=== PATIENT | female | born 1950 | race Caucasian/White ===

== ENCOUNTER 2019-05-12 17:35 | Inpatient (IN) | payer MEDICARE, SELFPAY ==
[2019-05-12 17:40] VITALS: BMI 33.3
[2019-05-12 17:53] VITALS: BP 172/91; PULSE 76; RESP 20; TEMP 37; O2SAT 98
--- NOTE | 2019-05-12 18:12 | XRR_ITS ---
PROCEDURE INFORMATION: Exam: XR Chest, 1 View Exam date and time: 05/12/2019 6:36 PM Age: 68 years old Clinical indication: Shortness of breath; Additional info: SOA TECHNIQUE: Imaging protocol: XR of the chest Views: 1 view. COMPARISON: CR Chest 1 [place] [id number] 03/28/2015 1:02 PM FINDINGS: The lungs are clear of infiltrate. There are no pleural effusions or pneumothorax. The heart size and pulmonary vascularity are normal. XR/XR chest 1V portable [id number] IMPRESSION: No active disease.
--- NOTE | 2019-05-12 18:27 | W.ED.SOB ---
HPI - SOB/Dyspnea General: Chief Complaint: Shortness of Breath/Dyspnea Stated Complaint: cp Time Seen by Provider: 05/12/19 18:05 History of Present Illness: HPI Narrative: States increaseing WHITNEY and icy fire intermittently in her chest that is quite unpleasant causing moderate discomfort. Staets it is intermittent and brief in duration. States she is unsure of relation but ever since she got her flu shot in February from the health department she has felt these twinges of discomfort. She has a clotting tendency and has had 11 veins stripped from her left leg and has a blanca filter in place and is on Eloquis. She denies chest pain currently or significant shortness of breath while resting. Advised we would like to ensure no occult clots and will evaluate for other potential causes of her now chronic problem. Patient agrees and will follow up with PCP if all wnl. MD elicited complaint: shortness of breath and chest pain Pertinent past history: PE Onset (ago): month(s) Context: occurred during exertion Timing: intermittent Severity: moderate Exacerbating factors: exertion and inspiration Relieving factors: rest Known history of: PE Associated symptoms: Reports chest pain; Deny abdominal pain, extremity pain, fever(s), hemoptysis, nausea, polydipsia, polyuria or vomiting Treatment prior to arrival: none Review of Systems Const: Denies: fever, chills, change in appetite or malaise Eyes: Denies: change in vision, blurry vision, eye discharge or eye redness ENMT: Denies: throat pain, uvular edema, painful swallowing, mouth pain, dental pain, nasal congestion or facial/sinus pain Card: Reports: chest pain Resp: Denies: productive cough, wheezing or coughing up blood GI: Denies: abdominal pain, nausea, vomiting, diarrhea, constipation or fecal incontinence : Denies: flank pain, difficulty urinating, painful urination, urinary frequency, urinary urgency or urinary hesitancy Musc: Denies: neck pain, back pain, extremity pain or extremity swelling Skin/Breast: Denies: rash, itching, redness, yellow skin or dry skin Neuro: Denies: headache, numbness in extremities, weakness in extremities, changes in sensation, lack of coordination or difficulty walking Psych: Denies: anxiety, depression, mood swings, panic attacks, sleeping less, suicidal ideation or homicidal ideation Endo: Denies: excessive urination, excessive thirst or tired all the time Garret/Lymph: Denies: easy bruising, petechiae or enlarged lymph nodes All/Imm: Denies: hives, throat swelling, facial swelling, acute wheezing or seasonal allergies PFSH ED PFSH: Statuses (acute, chronic, etc) shown below reflect problem list status as previously entered and may not be historically accurate Social History Smoking and tobacco status: never smoked Physical Exam Const: COMMON NORMALS: no apparent distress, oriented x3, no limitations, healthy appearing, alert and well nourished GENERAL APPEARANCE: cooperative, comfortable, well kempt and well developed ORIENTATION/CONSCIOUSNESS: Yes awake, Yes oriented to person, Yes oriented to place and Yes oriented to time HENMT: COMMON NORMALS: normocephalic, head/scalp atraumatic, hearing grossly normal bilaterally, external ears normal, EAC's normal, TM's normal bilaterally, external nose normal, nasal mucous membranes and turbinates normal, moist oral mucous membranes, oropharynx normal, dentition normal and gingiva normal HEAD & SCALP: normal to inspection, normocephalic and atraumatic FACE & SINUS: normal facial exam NOSE: external nose normal and nasal mucous membranes and turbinates normal EXTERNAL EAR: Yes external ears normal EXTERNAL AUDITORY CANAL: EAC's normal TYMPANIC MEMBRANE: TM's normal bilaterally MOUTH: oral and palatal mucosa normal, lip normal and tongue normal THROAT: no uvular edema Eye: COMMON NORMALS: PERRL, EOMs intact bilaterally, conjunctivae normal, no scleral icterus and normal visual saab by confrontation GENERAL EYE: normal appearance of both eyes and normal light reflex VISUAL ACUITY: Yes acuity normal ALIGNMENT: Yes alignment normal PERIORBITAL: periorbital findings normal EYELID: eyelids normal CONJUNCTIVA: Yes conjunctivae normal SCLERA: sclerae normal PUPIL: Yes PERRL and Yes accommodation reflex normal DIRECT OPHTHALMOSCOPY: Yes normal light reflex Neck/C-Spine: COMMON NORMALS: full ROM, no lymphadenopathy, supple, no meningeal signs and no JVD GENERAL: Yes normal visual inspection CAROTIDS: Yes normal carotid upstroke CERVICAL SPINE: Yes cervical ROM normal Lymph: LYMPHATIC: no lymphadenopathy noted Chest: COMMONS NORMALS: inspection of chest normal CHEST: Yes symmetrical chest wall rise Resp: COMMON NORMALS: normal respiratory effort, no retractions, no use of accessory muscles and clear to auscultation bilaterally EFFORT & INSPECTION: Yes able to speak in complete sentences and Yes symmetric chest movement AUSCULTATION: clear to auscultation bilaterally Cardio: COMMON NORMALS: no JVD, regular rate, regular rhythm, S1 normal heart sound, S2 normal heart sound, no murmurs and peripheral pulses 2+ throughout RATE: regular rate RHYTHM: regular rhythm HEART SOUNDS: S1 normal and S2 normal PERIPHERAL PULSES: pulses 2+ throughout GI: COMMON NORMALS: normal to inspection, nondistended, normoactive bowel sounds and non-tender : COMMON NORMALS: Yes no CVA tenderness BLADDER/KIDNEY EXAM: Yes no CVA tenderness Back/Pelvis: COMMON NORMALS: no CVA tenderness, thoracic and lumbar spine normal to inspection, no thoracic nor lumbar tenderness and thoraco-lumbar ROM normal Extremity: COMMON NORMALS: normal to inspection, full ROM, normal capillary refill, no calf tenderness and no pedal edema Neuro: COMMON NORMALS: oriented x3, CN's II-XII intact bilaterally, moves all extremities, no focal motor deficits, no sensory deficits noted and gait normal SENSORIUM/ORIENTATION: Yes alert, Yes oriented to person, Yes oriented to place and Yes oriented to time MENINGEAL SIGNS: Yes no meningeal signs SPEECH: speech normal GAIT: Yes normal gait MOTOR EXAM: strength 5/5 throughout, no pronator drift and no tremor noted Psych: COMMON NORMALS: mental status grossly normal, thought process normal, cooperative, affect normal, speech normal and activity/motor behavior normal APPEARANCE: Yes well kempt SPEECH: Yes normal speech THOUGHT PROCESS: normal thought process THOUGHT CONTENT: Yes normal thought content INSIGHT: insight good Skin: COMMON NORMALS: no rashes or lesions noted, no wounds, skin turgor normal and no jaundice GENERAL SKIN EXAM: no rashes or lesions noted and turgor normal Course ED course: patient doing well. Disucssed new onset DM and anemia. WILl need to admit to get her under control, pt agrees. Hospitalist agrees to admit Vital Signs: Vital signs: Vital Signs Temperature 98.6 F 05/12/19 17:53 Pulse Rate 76 05/12/19 17:53 Respiratory Rate 20 H 05/12/19 17:53 Blood Pressure 172/91 05/12/19 17:53 Pulse Oximetry 98 05/12/19 17:53 MDM - SOB/Dyspnea Differential Diagnosis: Shortness of Breath Differential Diagnosis: Likely congestive heart failure and pulmonary embolism Lab Data: Attestation: I reviewed the patient's lab results. Labs: Lab Results 05/12/19 05/12/19 05/12/19 Range/Units 18:31 18:31 18:31 WBC 10.1 H (4.0-10.0) 10^3/ uL RBC 2.94 L (4.1-5.3) 10^6/u L Hgb 6.9 L (11.5-15.3) g/dL Hct 24.4 L (37.0-47.0) % MCV 83.0 (81-99) fL MCH 23.5 L (28.0-34.0) pg MCHC 28.3 L (30.0-36.0) g/dL RDW 15.7 H (12.1-15.1) % Plt Count 349 (130-400) 10^3/c mm MPV 11.0 H (7.4-10.4) fL Neut % (Auto) 79.9 % Lymph % (Auto) 14.2 % [place] % (Auto) 3.1 % Eos % (Auto) 0.1 % Baso % (Auto) 0.4 % Neut # (Auto) 8.1 H (1.8-7.7) 10^3/u L Lymph # (Auto) 1.4 (0.8-4.8) 10^3/u L [place] # (Auto) 0.3 (0.2-0.9) 10^3/u L Eos # (Auto) 0.0 (0.0-0.8) 10^3/u L Baso # (Auto) 0.0 (0.0-0.1) 10^3/u L Nucleated RBC % (a uto) 0.2 % Nucleated RBCs # 0.0 /100WBC Sodium 125 L (136-145) mmol/L Potassium 4.1 (3.5-5.1) mmol/L Chloride 87 L (98-107) mmol/L Carbon Dioxide 18 L (22-29) mmol/L Anion Gap 24.1 H (5-19) BUN 37 H (8-23) mg/dL Creatinine 1.3 H (0.5-0.9) mg/dL GFR Calculation 40.7 L (90-130) mL/min Glucose 641 H* (74-106) mg/dL POC Glucose (70-110) mg/dL Estimat Average Gl ucose Hemoglobin A1c (4.0-6.0) % Calcium 10.6 H (8.8-10.2) mg/Dl Magnesium 1.7 (1.7-2.3) mg/dL Total Bilirubin 0.3 (0.15-1.2) mg/dL AST 12 (0-32) U/L ALT 13 (0-33) U/L Alkaline Phosphata se 97 (35-105) IU/L Troponin T Gen 5 n g/L 15 H (0-10) ng/mL NT-Pro-B Natriuret Pep 345 H (0-125) pg/mL Total Protein 7.3 (6.6-8.7) g/dL Albumin 4.0 (3.5-5.2) g/dL Globulin 3.3 (1.3-4.6) g/dL Serum Ketones (Negative) Blood Type 05/12/19 05/12/19 05/12/19 Range/Units 18:31 18:31 19:42 WBC (4.0-10.0) 10^3/ uL RBC (4.1-5.3) 10^6/u L Hgb (11.5-15.3) g/dL Hct (37.0-47.0) % MCV (81-99) fL MCH (28.0-34.0) pg MCHC (30.0-36.0) g/dL RDW (12.1-15.1) % Plt Count (130-400) 10^3/c mm MPV (7.4-10.4) fL Neut % (Auto) % Lymph % (Auto) % [place] % (Auto) % Eos % (Auto) % Baso % (Auto) % Neut # (Auto) (1.8-7.7) 10^3/u L Lymph # (Auto) (0.8-4.8) 10^3/u L [place] # (Auto) (0.2-0.9) 10^3/u L Eos # (Auto) (0.0-0.8) 10^3/u L Baso # (Auto) (0.0-0.1) 10^3/u L Nucleated RBC % (a uto) % Nucleated RBCs # /100WBC Sodium (136-145) mmol/L Potassium (3.5-5.1) mmol/L Chloride (98-107) mmol/L Carbon Dioxide (22-29) mmol/L Anion Gap (5-19) BUN (8-23) mg/dL Creatinine (0.5-0.9) mg/dL GFR Calculation (90-130) mL/min Glucose (74-106) mg/dL POC Glucose (70-110) mg/dL Estimat Average Gl ucose 301 Hemoglobin A1c 12.1 H (4.0-6.0) % Calcium (8.8-10.2) mg/Dl Magnesium (1.7-2.3) mg/dL Total Bilirubin (0.15-1.2) mg/dL AST (0-32) U/L ALT (0-33) U/L Alkaline Phosphata se (35-105) IU/L Troponin T Gen 5 n g/L (0-10) ng/mL NT-Pro-B Natriuret Pep (0-125) pg/mL Total Protein (6.6-8.7) g/dL Albumin (3.5-5.2) g/dL Globulin (1.3-4.6) g/dL Serum Ketones Negative (Negative) Blood Type O Positive 05/12/19 Range/Units 20:00 WBC (4.0-10.0) 10^3/ uL RBC (4.1-5.3) 10^6/u L Hgb (11.5-15.3) g/dL Hct (37.0-47.0) % MCV (81-99) fL MCH (28.0-34.0) pg MCHC (30.0-36.0) g/dL RDW (12.1-15.1) % Plt Count (130-400) 10^3/c mm MPV (7.4-10.4) fL Neut % (Auto) % Lymph % (Auto) % [place] % (Auto) % Eos % (Auto) % Baso % (Auto) % Neut # (Auto) (1.8-7.7) 10^3/u L Lymph # (Auto) (0.8-4.8) 10^3/u L [place] # (Auto) (0.2-0.9) 10^3/u L Eos # (Auto) (0.0-0.8) 10^3/u L Baso # (Auto) (0.0-0.1) 10^3/u L Nucleated RBC % (a uto) % Nucleated RBCs # /100WBC Sodium (136-145) mmol/L Potassium (3.5-5.1) mmol/L Chloride (98-107) mmol/L Carbon Dioxide (22-29) mmol/L Anion Gap (5-19) BUN (8-23) mg/dL Creatinine (0.5-0.9) mg/dL GFR Calculation (90-130) mL/min Glucose (74-106) mg/dL POC Glucose 595 (70-110) mg/dL Estimat Average Gl ucose Hemoglobin A1c (4.0-6.0) % Calcium (8.8-10.2) mg/Dl Magnesium (1.7-2.3) mg/dL Total Bilirubin (0.15-1.2) mg/dL AST (0-32) U/L ALT (0-33) U/L Alkaline Phosphata se (35-105) IU/L Troponin T Gen 5 n g/L (0-10) ng/mL NT-Pro-B Natriuret Pep (0-125) pg/mL Total Protein (6.6-8.7) g/dL Albumin (3.5-5.2) g/dL Globulin (1.3-4.6) g/dL Serum Ketones (Negative) Blood Type Discharge Plan Discharge Patient Disposition: Admitted As Inpatient Clinical Impression: Anemia Qualifiers: Anemia type: other cause Other causes of anemia: chronic disease, other Qualified Code(s): D63.8 - Anemia in other chronic diseases classified elsewhere Diabetes Qualifiers: Diabetes mellitus type: type 2 Diabetes mellitus halfway insulin use: without extermination inspector use Diabetes mellitus complication status: with hyperglycemia Qualified Code(s): E11.65 - Type 2 diabetes mellitus with hyperglycemia Condition: Stable Referrals: Kvng Hamilton MD [Family Provider] - Coding Level of Care Code ED Absorption And Adsorption Engineer for Chg Fwd Exam Problem Focused
[2019-05-12 18:44] LABS: Basophils % 0.4 %; Eosinophils % 0.1 %; Hematocrit 24.4 % (37.0-47.0); Hemoglobin 6.9 g/dL (11.5-15.3); Lymphocytes # 1.4 10^3/uL (0.8-4.8); Lymphocytes % 14.2 %; Mean Corpuscular HGB Conc 28.3 g/dL (30.0-36.0); Mean Corpuscular Hemoglobin 23.5 pg (28.0-34.0); Monocytes # 0.3 10^3/uL (0.2-0.9); Monocytes % 3.1 %; Neutrophils # 8.1 10^3/uL (1.8-7.7); Neutrophils % 79.9 %; Nucleated Red Blood Cells % 0.2 %; Platelet Count 349 10^3/cmm (130-400); Red Blood Count 2.94 10^6/uL (4.1-5.3); Red Cell Distribution Width 15.7 % (12.1-15.1); White Blood Count 10.1 10^3/uL (4.0-10.0)
[2019-05-12 19:10] LABS: Alanine Aminotransferase 13 U/L (0-33); Alkaline Phosphatase 97 IU/L (35-105); Anion Gap 24.1 (5-19); Aspartate Amino Transferase 12 U/L (0-32); Blood Urea Nitrogen 37 mg/dL (8-23); Calcium 10.6 mg/Dl (8.8-10.2); Carbon Dioxide 18 mmol/L (22-29); Chloride 87 mmol/L (98-107); Globulin 3.3 g/dL (1.3-4.6); Glomerular Filtration Rate 40.7 mL/min (90-130); Magnesium 1.7 mg/dL (1.7-2.3); NT Pro B Type Natriuretic Pept 345 pg/mL (0-125); Potassium 4.1 mmol/L (3.5-5.1); Sodium 125 mmol/L (136-145); Total Bilirubin 0.3 mg/dL (0.15-1.2); Total Protein 7.3 g/dL (6.6-8.7)
[2019-05-12 19:12] LABS: Glucose 641 mg/dL (74-106)
[2019-05-12 19:27] LABS: Troponin T (5th) Once 15 ng/mL (0-10)
[2019-05-12 19:36] LABS: Ketone (Acetest) Serum Negative (Negative)
[2019-05-12 20:02] LABS: Estmated Average Glucose 301; Hemoglobin A1C 12.1 % (4.0-6.0)
--- NOTE | 2019-05-12 20:02 | PC.NURSE ---
Patient's blood glucose is 595, informed nurse who was at bedside and informed doctor.
[2019-05-12 20:04] LABS: Glucose Point of Care 595 mg/dL (70-110)
[2019-05-12 20:59] LABS: Add Urine Microscopic? NO
[2019-05-12 21:10] LABS: Bilirubin Urine Neg (NEGATIVE); Blood Urine Neg (Negative); Glucose Urine UA 4+ (Normal); Ketones Urine 1+ (Negative); Leukocyte Esterase Urine Negative (Negative); Nitrate Urine Negative (Negative); Protein Urine Neg (Negative); Urine Appearance Clear (CLEAR); Urine Color Straw (Yellow); Urobilinogen Urine Norm (Negative); pH Urine 5 (5-7)
[2019-05-12 21:17] LABS: Influenza A by IFA Negative (Negative); Influenza B by IFA Negative (Negative)
[2019-05-12 22:00] VITALS: BP 156/84; PULSE 68; RESP 16; RESP 18; TEMP 36.8; O2SAT 96
--- NOTE | 2019-05-12 22:11 | PC.NURSE ---
Patient blood glucose is 554, informed nurse, ER doctor and hospitalist.
[2019-05-12 22:15] VITALS: BP 124/80; PULSE 65; RESP 15; TEMP 36.8
[2019-05-12 22:15] LABS: Glucose Point of Care 554 mg/dL (70-110)
--- NOTE | 2019-05-12 22:42 | PC.NURSE ---
UNABLE TO SCAN BLOOD PRODUCT, RADHAE LAUNDRY ROUTEMAN NOTIFIED FOR ASSISTANCE. BLOOD STARTED WITH 2 NURSE VERIFICATION, VITAL SIGNS ON PRBC FORM.
[2019-05-12 22:51] VITALS: RESP 18; O2SAT 98
[2019-05-12] MEDS: HYDROmorphone 1 mg/mL INJ 1 mL IVP (22:51)
--- NOTE | 2019-05-12 23:32 | PC.NURSE ---
Patient blood glucose is 452, informed nurse and ER doctor.
[2019-05-12 23:36] LABS: Glucose Point of Care 452 mg/dL (70-110)
[2019-05-13] VITALS (17 sets, daily range): BP systolic 109–139; BP diastolic 60–81; PULSE 56–76; RESP 16–23; TEMP 36–37.2; O2SAT 95–100; BMI 33.3
[2019-05-13 00:55] LABS: Glucose Point of Care 346 mg/dL (70-110)
--- NOTE | 2019-05-13 01:06 | PC.NURSE ---
Patient blood glucose is 346, informed nurse and doctor
--- NOTE | 2019-05-13 01:21 | PM.HP ---
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 Patient states that she received an influenza vaccine in February and since then has not felt like herself. Earlier in the week she went to her PCP and received a prescription for prednisone 40 mg for 5 days as well as a Z-Pancho. Prior to going to her PCP she did have a cough and some chest congestion which has improved with the aforementioned treatment but her weakness, exertional shortness of breath has persisted. She got concerned that maybe she had developed a blood clot due to her prior history so presented to the ER today. She does have a prior history of cancer though is currently in remission, was following up with Dr. Small. Has had a history of VTE including PE and left lower extremity DVT, is currently on anticoagulation with Eliquis which she reports compliance with. Review of her medical record shows prior history of diabetes which patient denies. For the past several days she has noticed that she is urinating much more frequently and has been very thirsty has not happened to her in the past. She has been told that she is a borderline diabetic several years ago but has had no issues with her blood sugar recently. She has had issues with anemia requiring transfusion but not in the past few years and since 2016 her hemoglobin has been within normal range. She denies having any blood in her urine or her stool. Labs done in the ER today indicate white count of 10.1, hemoglobin of 6.9, normal platelet count, sodium of 125, BUN of 37, creatinine of 1.3, blood sugar of 641, anion gap of 24.1, normal liver function tests, A1c of 12.1. Serum ketones are negative, urinalysis is positive for glucose and ketones. Chest x-ray is negative. Vital signs are stable. Blood sugar seems to be trending down and she has received 15 units of NovoLog. Her first unit of PRBCs is currently running. is at bedside during my assessment in the ER. Discussed lab findings particularly low hemoglobin and new onset diabetes. Due to need for transfusion of blood products as well as appropriate blood sugar control patient will be admitted for further care. Review of Systems Const: Reports: change in appetite (decreased appetite), fatigue, malaise and other ([place]); Denies: fever or chills Eyes: Denies: change in vision ENMT: Reports: dry mouth Card: Denies: chest pain, swelling of feet/ankles or lightheadedness Resp: Denies: shortness of breath or productive cough GI: Denies: abdominal pain, nausea, vomiting, vomiting blood or blood in stool : Reports: urinary frequency; Denies: difficulty urinating, painful urination or blood in urine Musc: Denies: back pain Skin/Breast: Denies: rash Neuro: Reports: weakness in extremities; Denies: numbness in extremities Psych: Denies: anxiety Endo: Reports: excessive urination, excessive thirst and tired all the time Medications/Allergies Allergies Allergy/AdvReac Type Severity Reaction Status Date / Time meperidine [From Demerol] Allergy Unknown Verified 05/12/19 17:57 IMMODIUM Allergy ALGY-Hives Uncoded 05/12/19 17:57 UNSURE OD ALLERGIES STATES Allergy Unknown Uncoded 05/12/19 17:59 PAIN MED Additional Medication Information Additional Medication Information: -pending med rec PFSH Acute PFSH: Statuses (acute, chronic, etc) shown below reflect problem list status as previously entered and may not be historically accurate Medical History (Updated 05/13/19 @ 03:08 by Lila Mccray MD) Adhesion of intestine (Acute) HTN (hypertension) (Acute) Left leg DVT (Acute) Malignant neoplasm of cecum (Acute) in remission s/p surgery and adjuvant chemotherapy Pulmonary emboli (Acute) Surgical History (Updated 05/13/19 @ 03:10 by Lila Mccray MD) H/O section (Acute) H/O right hemicolectomy (Acute) secondary to cecal cancer H/O umbilical hernia repair (Acute) History of appendectomy (Acute) In 2000 History of cholecystectomy (Acute) History of hysterectomy with bilateral oophorectomy (Acute) In 1988 S/P IVC filter (Acute) Family History (Updated 05/13/19 @ 03:04 by Lila Mccray MD) Father Dementia Brother Cancer colon cancer Social History (Updated 05/13/19 @ 03:04 by Lila Mccray MD) Smoking and tobacco status: never smoked Alcohol intake: never Substance/Drug Use: never Household members: spouse Housing: House Vitals/I&O/Wt Last Vital Signs Temp 98.2 F 05/12/19 22:15 Pulse 64 05/13/19 00:26 Resp 22 H 05/13/19 00:30 BP 134/72 05/13/19 00:26 Pulse Ox 96 05/13/19 00:30 05/12/19 05/12/19 05/13/19 14:59 22:59 06:59 Intake Total 350 / 350 400 / 750 Balance 350 / 350 400 / 750 Weight last 48 hrs Weight 90.718 kg Physical Exam Const: COMMON NORMALS: no apparent distress and oriented x3 GENERAL APPEARANCE: cooperative and comfortable ORIENTATION/CONSCIOUSNESS: Yes awake OTHER: Appears pale and fatigued HENMT: COMMON NORMALS: normocephalic, head/scalp atraumatic and hearing grossly normal bilaterally HEAD & SCALP: normocephalic and atraumatic MOUTH: moist mucous membranes abnormal Details: parched Eye: COMMON NORMALS: PERRL, EOMs intact bilaterally and conjunctivae normal CONJUNCTIVA: Yes conjunctivae normal PUPIL: Yes PERRL Neck/C-Spine: COMMON NORMALS: full ROM GENERAL: Yes normal visual inspection and Yes trachea midline Resp: COMMON NORMALS: normal respiratory effort, no retractions, no use of accessory muscles and clear to auscultation bilaterally EFFORT & INSPECTION: Yes able to speak in complete sentences, Yes symmetric chest movement and No tachypneic AUSCULTATION: clear to auscultation bilaterally Cardio: COMMON NORMALS: regular rate, regular rhythm, S1 normal heart sound, S2 normal heart sound and no murmurs RATE: regular rate RHYTHM: regular rhythm HEART SOUNDS: S1 normal and S2 normal GI: COMMON NORMALS: normal to inspection, nondistended, normoactive bowel sounds, soft to palpation and non-tender PALPATION: Yes soft Extremity: COMMON NORMALS: normal to inspection, full ROM and no clubbing, cyanosis or edema; negative for no pedal edema Neuro: COMMON NORMALS: oriented x3, moves all extremities, no focal motor deficits and no sensory deficits noted Psych: COMMON NORMALS: mental status grossly normal, thought process normal, cooperative, affect normal and speech normal SPEECH: Yes normal speech THOUGHT PROCESS: normal thought process Skin: COMMON NORMALS: no rashes or lesions noted, no jaundice, no petechiae and no mottling GENERAL SKIN EXAM: no rashes or lesions noted Data : 05/12/19 18:31 05/12/19 18:31 A&P Assessment and plan (1) Anemia: -Has prior history of chronic normocytic anemia though over the past 2 to 3 years her hemoglobin has been within normal limits -Has had prior GI work-up secondary to a history of cecal cancer with EGD showing evidence of gastritis, she was treated for H. pylori -Current hemoglobin down to 6.9, transfused 2 units PRBCs, will give low-dose Lasix in between to prevent fluid overload -Monitor vital signs -Hold anticoagulation Status: Acute Qualifiers: Anemia type: other cause Other causes of anemia: chronic disease, other Qualified Code(s): D63.8 - Anemia in other chronic diseases classified elsewhere Code(s): D64.9 - Anemia, unspecified (2) Diabetes: -Per patient this is new onset diabetes, there is documentation of DM type II in previous medical record -A1c-12.1 -Significantly hyperglycemic on arrival with pseudohyponatremia -Frequent Accu-Cheks; ISS, may need scheduled insulin as well -Diabetic diet as tolerated -Complains of what sounds like peripheral neuropathy in bilateral feet Status: Acute Qualifiers: Diabetes mellitus complication status: with hyperglycemia Diabetes mellitus manager long term care insulin use: without manager long term care use Diabetes mellitus type: type 2 Qualified Code(s): E11.65 - Type 2 diabetes mellitus with hyperglycemia Code(s): E11.9 - Type 2 diabetes mellitus without complications (3) Malignant neoplasm of cecum: -in remission Status: Acute Code(s): C18.0 - Malignant neoplasm of cecum (4) Left leg DVT: -Has known history of LLE DVT, s/p IVC filter placement, and on AC with Eliquis -hold Eliquis due to worsening anemia Status: Acute Qualifiers: Affected thrombotic vein of extremity: unspecified vein of extremity Chronicity: chronic Qualified Code(s): I82.502 - Chronic embolism and thrombosis of unspecified deep veins of left lower extremity Code(s): I82.402 - Acute embolism and thrombosis of unspecified deep veins of left lower extremity (5) HTN (hypertension): -monitor vital signs -resume oral antihypertensives once med rec done Status: Acute Qualifiers: Hypertension type: essential hypertension Qualified Code(s): I10 - Essential (primary) hypertension Code(s): I10 - Essential (primary) hypertension Additional A&P Information -GI ppx with PPI -DVT ppx with SCDs for now; consider resuming AC once Hg stable -PT evaluation in AM -case management consult for medication assistance (has no insurance) and referral to new PCP -Has been taking prednisone and Z-Pancho. Chest x-ray unremarkable and no clinical evidence of respiratory infection currently so we will not continue this for now -Dispo: home -Code status: FULL code Attestations Medical Necessity Statement*: Rima Jacobs's hospital stay will require greater than 2 midnights for management of new onset diabetes with significant hyperglycemia and need for frequent blood glucose checks as well as acutely worsening anemia requiring transfusion of blood products. Time Spent in Patient Care: Greater than 35 minutes (>than 50% of time spent in counselling and/or direct pt care on unit). Coding Level of Care Code Acute Professor Of Theater for Chg Fwd Diagnoses Anemia D63.8 Anemia type: other cause Other causes of anemia: chronic disease, other Diabetes E11.65 Diabetes mellitus complication status: with hyperglycemia Diabetes mellitus manager long term care insulin use: without senior care use Diabetes mellitus type: type 2 Malignant neoplasm of cecum C18.0 Left leg DVT I82.502 Affected thrombotic vein of extremity: unspecified vein of extremity Chronicity: chronic HTN (hypertension) I10 Hypertension type: essential hypertension
--- NOTE | 2019-05-13 02:03 | PC.NURSE ---
Patient's blood glucose is 275, informed nurse and doctor.
[2019-05-13 02:05] LABS: Glucose Point of Care 275 mg/dL (70-110)
[2019-05-13] MEDS: pantoprazole 40 mg SDV IVP (03:00)
[2019-05-13 04:52] LABS: Glucose Point of Care 309 mg/dL (70-110)
[2019-05-13 06:40] LABS: Glucose Point of Care 306 mg/dL (70-110)
[2019-05-13 07:45] LABS: Basophils % 0.2 %; Eosinophils % 0.2 %; Hematocrit 29.9 % (37.0-47.0); Lymphocytes # 3.8 10^3/uL (0.8-4.8); Lymphocytes % 28.5 %; Mean Corpuscular Hemoglobin 25.7 pg (28.0-34.0); Mean Corpuscular Volume 82.6 fL (81-99); Monocytes # 1.2 10^3/uL (0.2-0.9); Monocytes % 8.7 %; Neutrophils # 8.2 10^3/uL (1.8-7.7); Neutrophils % 61.3 %; Nucleated Red Blood Cells % 0.2 %; Platelet Count 281 10^3/cmm (130-400); Red Blood Count 3.62 10^6/uL (4.1-5.3); Red Cell Distribution Width 14.7 % (12.1-15.1); White Blood Count 13.3 10^3/uL (4.0-10.0)
[2019-05-13 07:58] LABS: Hemoglobin 9.3 g/dL (11.5-15.3)
[2019-05-13 07:59] LABS: Mean Corpuscular HGB Conc 31.1 g/dL (30.0-36.0)
[2019-05-13 08:06] LABS: Anion Gap 21.3 (5-19); Blood Urea Nitrogen 32 mg/dL (8-23); Carbon Dioxide 20 mmol/L (22-29); Chloride 93 mmol/L (98-107); Glomerular Filtration Rate 49.4 mL/min (90-130); Glucose 304 mg/dL (74-106); Potassium 3.3 mmol/L (3.5-5.1); Sodium 131 mmol/L (136-145)
[2019-05-13 08:12] LABS: Glucose Point of Care 337 mg/dL (70-110)
[2019-05-13 10:04] LABS: Glucose Point of Care 359 mg/dL (70-110)
[2019-05-13 12:36] LABS: Glucose Point of Care 259 mg/dL (70-110)
[2019-05-13 14:08] LABS: Glucose Point of Care 298 mg/dL (70-110)
[2019-05-13 17:11] LABS: Glucose Point of Care 317 mg/dL (70-110)
--- NOTE | 2019-05-13 17:23 | P.PN_ITS ---
Subjective Subjective: Interval history: Overnight labs and H&P noted. Overnight received 2 units of packed red blood cell transfusion. Hemoglobin this morning improved at 9.3. He states feeling that her weakness is better since the blood transfusion. No new complaints this morning. Fingersticks have been running mostly in the 300s today. Medications: Reviewed: Yes Vitals/I&O/Wt Last Vital Signs Temp 98.3 F 05/13/19 15:18 Pulse 76 05/13/19 15:18 Resp 18 05/13/19 15:18 BP 118/74 05/13/19 15:18 Pulse Ox 96 05/13/19 15:18 05/13/19 05/13/19 05/13/19 06:59 14:59 22:59 Intake Total 640 / 990 554 / 554 Output Total 0 / 0 Balance 640 / 990 554 / 554 Weight last 48 hrs Weight 90.718 kg Weight 90.718 kg Physical Exam Narrative: EXAM NARRATIVE: GEN: Awake, alert and oriented, no acute distress CVS: S1S2 N RS: CTA B/L Abd: Soft, nt/nd , bs+ RELIGIOUS EDUCATION DIRECTOR: no focal neuro deficits Data : 05/13/19 07:18 05/13/19 07:18 A&P Assessment and plan (1) Anemia: -Has prior history of chronic normocytic anemia though over the past 2 to 3 years her hemoglobin has been within normal limits -Has had prior GI work-up secondary to a history of cecal cancer with EGD showing evidence of gastritis, she was treated for H. pylori -Current hemoglobin down to 6.9, transfused 2 units PRBCs, repeat hemoglobin at 9.3 -Monitor vital signs -Hold anticoagulation -Check GI occult blood. Status: Acute Qualifiers: Anemia type: other cause Other causes of anemia: chronic disease, other Qualified Code(s): D63.8 - Anemia in other chronic diseases classified elsewhere Code(s): D64.9 - Anemia, unspecified (2) Diabetes: -Per patient this is new onset diabetes, there is documentation of DM type II in previous medical record -A1c-12.1 -Significantly hyperglycemic on arrival with pseudohyponatremia -Frequent Accu-Cheks; ISS, will calculate her 24-hour insulin requirement and split into insulin Lantus and NovoLog pre-meal. -Diabetic diet as tolerated -Complains of what sounds like peripheral neuropathy in bilateral feet Status: Acute Qualifiers: Diabetes mellitus complication status: with hyperglycemia Diabetes mellitus usp insulin use: without usp use Diabetes mellitus type: type 2 Qualified Code(s): E11.65 - Type 2 diabetes mellitus with hyperglycemia Code(s): E11.9 - Type 2 diabetes mellitus without complications (3) Malignant neoplasm of cecum: -in remission Status: Acute Code(s): C18.0 - Malignant neoplasm of cecum (4) Left leg DVT: -Has known history of LLE DVT, s/p IVC filter placement, and on AC with Eliquis -hold Eliquis due to worsening anemia -We will check for gastric occult blood. If no bleeding noted then will resume Eliquis. If gastric occult positive will need colonoscopy before resuming anticoagulation. Status: Acute Qualifiers: Affected thrombotic vein of extremity: unspecified vein of extremity Chronicity: chronic Qualified Code(s): I82.502 - Chronic embolism and thrombosis of unspecified deep veins of left lower extremity Code(s): I82.402 - Acute embolism and thrombosis of unspecified deep veins of left lower extremity (5) HTN (hypertension): -monitor vital signs -resume oral antihypertensives metoprolol and HCTZ Status: Acute Qualifiers: Hypertension type: essential hypertension Qualified Code(s): I10 - Essential (primary) hypertension Code(s): I10 - Essential (primary) hypertension Additional A&P Information -GI ppx with PPI -DVT ppx with SCDs for now -PT evaluation in AM -case management consult for medication assistance (has no insurance) and referral to new PCP(specifically requests and MD) -Dispo: home -Code status: FULL code Attestations Medical Necessity Statement*: Needs evaluation for anemia, status post blood transfusion today needs optimization of fingersticks prior to discharge. 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
[2019-05-13] MEDS: metoprolol tartrate 50 mg Tablet PO (17:39)
[2019-05-13 18:53] LABS: Glucose Point of Care 394 mg/dL (70-110)
[2019-05-13 21:51] LABS: Glucose Point of Care 300 mg/dL (70-110)
[2019-05-13 22:19] LABS: Glucose Point of Care 251 mg/dL (70-110)
[2019-05-14 00:47] LABS: Glucose Point of Care 86 mg/dL (70-110)
[2019-05-14 02:17] LABS: Glucose Point of Care 167 mg/dL (70-110)
[2019-05-14 03:46] VITALS: BP 120/67; PULSE 59; RESP 18; TEMP 36.6; O2SAT 98
[2019-05-14] MEDS: pantoprazole 40 mg SDV IVP ×2 (04:04→16:14)
[2019-05-14 04:14] LABS: Glucose Point of Care 209 mg/dL (70-110)
[2019-05-14 06:42] LABS: Glucose Point of Care 189 mg/dL (70-110)
[2019-05-14 06:49] LABS: Anion Gap 20.2 (5-19); Blood Urea Nitrogen 25 mg/dL (8-23); Calcium 9.5 mg/Dl (8.8-10.2); Carbon Dioxide 20 mmol/L (22-29); Chloride 98 mmol/L (98-107); Glomerular Filtration Rate 62.3 mL/min (90-130); Glucose 191 mg/dL (74-106); Potassium 3.2 mmol/L (3.5-5.1); Sodium 135 mmol/L (136-145)
[2019-05-14 07:32] VITALS: BP 108/66; PULSE 59; RESP 18; TEMP 36.8; O2SAT 96
[2019-05-14 08:07] LABS: Basophils # 0.1 10^3/uL (0.0-0.1); Basophils % 0.5 %; Eosinophils # 0.2 10^3/uL (0.0-0.8); Hematocrit 31.2 % (37.0-47.0); Hemoglobin 9.4 g/dL (11.5-15.3); Lymphocytes # 4.2 10^3/uL (0.8-4.8); Lymphocytes % 38.1 %; Mean Corpuscular HGB Conc 30.1 g/dL (30.0-36.0); Mean Corpuscular Hemoglobin 24.5 pg (28.0-34.0); Mean Corpuscular Volume 81.3 fL (81-99); Monocytes % 8.7 %; Neutrophils # 5.5 10^3/uL (1.8-7.7); Neutrophils % 49.4 %; Nucleated Red Blood Cells % 0 %; Platelet Count 274 10^3/cmm (130-400); Red Blood Count 3.84 10^6/uL (4.1-5.3); Red Cell Distribution Width 14.8 % (12.1-15.1); White Blood Count 11.1 10^3/uL (4.0-10.0)
[2019-05-14] MEDS: metoprolol tartrate 50 mg Tablet PO ×2 (09:05→19:36)
[2019-05-14] MEDS: hydroCHLOROthiazide 25 mg Tablet PO (09:05)
[2019-05-14 11:24] VITALS: BP 135/79; PULSE 80; RESP 18; TEMP 36.8; O2SAT 95
[2019-05-14 11:48] LABS: Glucose Point of Care 283 mg/dL (70-110)
[2019-05-14 11:48] LABS: Glucose Point of Care 319 mg/dL (70-110)
--- NOTE | 2019-05-14 13:00 | PC.CHAP ---
Pastoral Care Encounter/Spiritual Assessment Type of Contact [] Declined glass or mirror inspector visit [] Patient/Family/Request visit [] Outpatient visit [] Follow-up visit [] Physician referral [] Code/Alert [] Routine visit [] Staff referral [] Actively dying [] Patient sleeping [] Family support [] [] Out of room [] Palliative care [] [] Receiving care in room [] Pre-surgical visit [] Trauma [] Long length of stay [] ICU visit [] Other: Relational/Emotional Strength [x] Patient feels connected with others/family/visitors/staff [] Distress [] Loneliness/isolation [] Abandonment Spirituality of Patient [x] Person of [place] [] Attends Mosque of their [place] [x] Believes in Prayer [] Reads Bible or Hinduism materials [] There are Spiritual issues to be addressed [employer] Weigher [employer] Packer Interventions [x] Prayer [x] Active listening [x] Non-anxious presence [x] Spiritual/emotional support [] Crisis/trauma care [] Spiritual counseling [] Bereavement support [] Provided bereavement packet [] Provided Bible/devotional materials [] Provided toy/stuffed animal, coloring book to patient or family member [x] Completed spiritual assessment [] Provided Communion [] Anointing/[place] [] Salvation [] Other: Impact on Illness or Injury [] Angry [] Fearful [] Anxious [] Often cries [] Exhaustion [] Unable to work [] Unable to attend spiritism [] Unable to walk/stand [] Unable to read [] Unable to drive [] Unable to eat/drink [] Unable to sleep [] Unable to be with family [] Other: Summary Chaplains prayed with patient. Time spent with patient 15 minutes.
[2019-05-14 16:00] VITALS: BP 128/75; PULSE 68; RESP 20; TEMP 36.8; O2SAT 97
[2019-05-14] MEDS: potassium chloride premix 40 MEQ/100 ML PREMIX 25 MEQ IV (16:33)
--- NOTE | 2019-05-14 16:46 | PM.PN ---
Subjective Subjective: Interval history: Hemoglobin stable. On episode of sugar with 89 patient reported symptomatic hypoglycemia at that time. She explains cramping in bilateral lower extremities and just not feeling right. The cramping may be related to hypokalemia noted on the labs today. She denies any overt diaphoresis or loss of consciousness. 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 pylori -Current hemoglobin down to 6.9, transfused 2 units PRBCs on 05/13, repeat hemoglobin at 9.4 -Monitor vital signs -Hold anticoagulation -Check GI occult blood. Pending today. No melena or hematemesis. Status: Acute Qualifiers: Anemia type: other cause Other causes of anemia: chronic disease, other Qualified Code(s): D63.8 - Anemia in other chronic diseases classified elsewhere Code(s): D64.9 - Anemia, unspecified (2) Diabetes: -Per patient this is new onset diabetes, there is documentation of DM type II in previous medical record -A1c-12.1 -Significantly hyperglycemic on arrival with pseudohyponatremia -Frequent Accu-Cheks; ISS, -A 24-hour insulin requirement yesterday was at 37 units. I will start her on Lantus 10 units at nighttime and 5 units pre-meal insulin. Additional corrective doses may be used as needed. We will continue to monitor with this regimen and change insulin as needed. -Diabetic diet as tolerated -Complains of what sounds like peripheral neuropathy in bilateral feet -Extensive insulin education provided today. Status: Acute Qualifiers: Diabetes mellitus complication status: with hyperglycemia Diabetes mellitus ad terminal makeup operator insulin use: without mcc use Diabetes mellitus type: type 2 Qualified Code(s): E11.65 - Type 2 diabetes mellitus with hyperglycemia Code(s): E11.9 - Type 2 diabetes mellitus without complications (3) Malignant neoplasm of cecum: -in remission Status: Acute Code(s): C18.0 - Malignant neoplasm of cecum (4) Left leg DVT: -Has known history of LLE DVT, s/p IVC filter placement, and on AC with Eliquis -hold Eliquis due to worsening anemia -We will check for gastric occult blood. If no bleeding noted then will resume Eliquis. If gastric occult positive will need colonoscopy before resuming anticoagulation. Status: Acute Qualifiers: Affected thrombotic vein of extremity: unspecified vein of extremity Chronicity: chronic Qualified Code(s): I82.502 - Chronic embolism and thrombosis of unspecified deep veins of left lower extremity Code(s): I82.402 - Acute embolism and thrombosis of unspecified deep veins of left lower extremity (5) HTN (hypertension): -monitor vital signs -resume oral antihypertensives metoprolol and HCTZ Status: Acute Qualifiers: Hypertension type: essential hypertension Qualified Code(s): I10 - Essential (primary) hypertension Code(s): I10 - Essential (primary) hypertension Additional A&P Information -GI ppx with PPI -DVT ppx with SCDs for now -PT evaluation in AM -case management consult for medication assistance (has no insurance) and referral to new PCP(specifically requests an MD) -Dispo: home -Code status: FULL code Attestations Medical Necessity Statement*: Ongoing admission to monitor blood sugar trend on newly initiated insulin. 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
[2019-05-14 16:59] LABS: Glucose Point of Care 413 mg/dL (70-110)
--- NOTE | 2019-05-14 19:00 | PC.NURSE ---
Introduction of staff and report received, aidet.
[2019-05-14 20:00] VITALS: BP 113/74; PULSE 71; RESP 18; TEMP 36.8; O2SAT 95
--- NOTE | 2019-05-14 20:03 | PC.NURSE ---
PT REFUSED TO PUT TELEMETRY BACK ON AFTER HER SHOWER. DR PEREZ STATED SHE DID NOT NEED IT ANYMORE AND TO DISCONTINUE.
[2019-05-14 20:51] LABS: Glucose Point of Care 405 mg/dL (70-110)
[2019-05-14] MEDS: insulin glargine 100 units/1 mL 10 UNIT SUBCUT (21:53)
[2019-05-15] VITALS: BP 111/61; PULSE 68; RESP 18; TEMP 37.1; O2SAT 98
[2019-05-15 04:00] VITALS: BP 121/63; PULSE 64; RESP 18; TEMP 36.9; O2SAT 99
[2019-05-15 06:01] LABS: Basophils % 0.4 %; Eosinophils # 0.3 10^3/uL (0.0-0.8); Eosinophils % 2.8 %; Hematocrit 27.7 % (37.0-47.0); Hemoglobin 8.5 g/dL (11.5-15.3); Lymphocytes # 4.4 10^3/uL (0.8-4.8); Mean Corpuscular HGB Conc 30.7 g/dL (30.0-36.0); Mean Corpuscular Hemoglobin 25.4 pg (28.0-34.0); Mean Corpuscular Volume 82.9 fL (81-99); Mean Platelet Volume 11.5 fL (7.4-10.4); Monocytes # 1.1 10^3/uL (0.2-0.9); Monocytes % 9.6 %; Neutrophils # 5.3 10^3/uL (1.8-7.7); Neutrophils % 46.6 %; Nucleated Red Blood Cells % 0 %; Platelet Count 223 10^3/cmm (130-400); Red Blood Count 3.34 10^6/uL (4.1-5.3); Red Cell Distribution Width 15.1 % (12.1-15.1); White Blood Count 11.4 10^3/uL (4.0-10.0)
[2019-05-15 06:31] LABS: Glucose Point of Care 142 mg/dL (70-110)
--- NOTE | 2019-05-15 07:42 | PC.NURSE ---
Pt gave her own insulin injection and done so with guidance from this nurse. pt cleaned area on abdomen with alcohol wipe, allowed area to dry, and then injected 5 units of insulin into abdomen.
[2019-05-15 08:00] VITALS: BP 113/66; PULSE 66; RESP 18; TEMP 36.7; O2SAT 97
[2019-05-15] MEDS: pantoprazole DR 40 mg Tablet PO ×2 (08:37→17:23)
[2019-05-15] MEDS: hydroCHLOROthiazide 25 mg Tablet PO (08:37)
[2019-05-15] MEDS: metoprolol tartrate 50 mg Tablet PO ×2 (08:37→17:23)
[2019-05-15 10:26] LABS: Alanine Aminotransferase 10 U/L (0-33); Albumin Level 3.3 g/dL (3.5-5.2); Alkaline Phosphatase 54 IU/L (35-105); Anion Gap 17.2 (5-19); Aspartate Amino Transferase 14 U/L (0-32); Blood Urea Nitrogen 27 mg/dL (8-23); Calcium 9.3 mg/Dl (8.8-10.2); Carbon Dioxide 23 mmol/L (22-29); Chloride 97 mmol/L (98-107); Globulin 2.7 g/dL (1.3-4.6); Glomerular Filtration Rate 62.3 mL/min (90-130); Glucose 128 mg/dL (74-106); Potassium 3.2 mmol/L (3.5-5.1); Sodium 134 mmol/L (136-145); Total Bilirubin 0.4 mg/dL (0.15-1.2)
[2019-05-15 10:54] LABS: Glucose Point of Care 260 mg/dL (70-110)
[2019-05-15 11:23] VITALS: BP 124/63; PULSE 63; RESP 18; TEMP 36.9; O2SAT 97
--- NOTE | 2019-05-15 12:14 | P.CONIM_ITS ---
Providers/Reason For Consult Consulting Physican/Specialty*: General Surgery David Bergman MD Reason for Consult*: Anemia, heme positive stool, history of gastritis, history of colon cancer. Attending Physician: Iker Villalpando MD History of Present Illness History of Present Illness Rima Jacobs is a 68 year old female who was recently admitted with worsening symptoms of fatigue, weakness, and some mild chest pain associated with some shortness of breath. She said the symptoms of weakness have been getting worse over the past couple of months at home. She presented to the emergency room, as she has a history of a pulmonary embolism and wanted to make sure that she was not developing new problems from that. She was on Eliquis at home. She was found to have a hemoglobin of 6.9 and a blood sugar of 641. The patient was transfused and says she feels much better now. Her hemoglobin has drifted slightly over the past 24 hours again, and her stool has been found to be heme positive. The patient denies any history of hematochezia, melena, nausea, vomiting, abdominal pain. She does have a history of gastritis/Helicobacter that was found on an EGD back in late 2014. She has been taking omeprazole [id number] daily over the past year. She says that if she misses a couple doses in a row she will notice more epigastric burning. She also was found to have a colon cancer at the cecum on endoscopy in late 2014. She has been through a right hemicolectomy and subsequent treatment. She has not had any endoscopy since. She denies any recent changes in bowel habits, unintentional weight loss, etc. Review of Systems Const: Denies: fever or chills Eyes: Denies: change in vision ENMT: Denies: throat pain Card: Reports: chest pain (With initial presenting symptoms, now resolved) Resp: Reports: shortness of breath (With activity prior to admission, now better) GI: Reports: heartburn/indigestion ( If I miss 2 or more doses of daily omepr azole ); Denies: abdominal pain, nausea, vomiting, vomiting blood, change in bowel habits or black tarry stool : Denies: difficulty urinating Musc: Denies: extremity swelling Skin/Breast: Denies: rash Neuro: Denies: slurred speech Psych: Denies: anxiety Garret/Lymph: Denies: enlarged lymph nodes All/Imm: Denies: hives Meds/Allergies Home Medications and Allergies Home Medications Medication Instructions Recorded Confirmed Type apixaban [Eliquis] 2.5 mg PO BID 05/13/19 05/13/19 History azithromycin [Zithromax Z-Pancho] 250 mg PO DAILY 05/13/19 05/13/19 History hydrochlorothiazide 25 mg PO DAILY 05/13/19 05/13/19 History loratadine 10 mg PO DAILY 05/13/19 05/13/19 History metoprolol tartrate 50 mg PO DAILY 05/13/19 05/13/19 History omeprazole 20 mg PO DAILY 05/13/19 05/13/19 History Allergies Allergy/AdvReac Type Severity Reaction Status Date / Time acetaminophen [From Percocet] Allergy ALGY-Hives Verified 05/13/19 05:29 meperidine [From Demerol] Allergy Unknown Verified 05/12/19 17:57 oxycodone [From Percocet] Allergy ALGY-Hives Verified 05/13/19 05:29 IMMODIUM Allergy ALGY-Hives Uncoded 05/12/19 17:57 UNSURE OD ALLERGIES STATES Allergy Unknown Uncoded 05/12/19 17:59 PAIN MED Current Medications Current Medications Generic Name Dose Route Start Last Admin Trade Name Bladeq PRN Reason Stop Dose Admin Hydrochlorothiazide 25 mg 05/14/19 09:00 05/15/19 08:37 Hctz PO 25 mg DAILY DIEGO Administration Insulin Aspart 0 unit 05/14/19 21:00 05/14/19 21:53 Novolog SUBCUT 18 unit BEDTIME DIEGO Administration Protocol Insulin Aspart 5 unit 05/14/19 18:00 05/15/19 11:43 Novolog SUBCUT Not Given TIDWM DIEGO Insulin Glargine 10 unit 05/14/19 21:00 05/14/19 21:53 Lantus SUBCUT 10 unit BEDTIME DIEGO Administration Metoprolol Tartrate 50 mg 05/13/19 18:00 05/15/19 08:37 Lopressor PO 50 mg BID DIEGO Administration Pantoprazole Sodium 40 mg 05/15/19 09:00 05/15/19 08:37 Protonix PO 40 mg BID DIEGO Administration PFSH Acute PFSH: Statuses (acute, chronic, etc) shown below reflect problem list status as previously entered and may not be historically accurate Medical History (Updated 05/15/19 @ 12:34 by David Bergman MD) Adhesion of intestine (Acute) History of colon cancer (Acute) in remission s/p surgery 2014 and adjuvant chemotherapy History of gastritis (Acute) HTN (hypertension) (Acute) Left leg DVT (Acute) Pulmonary emboli (Acute) Surgical History H/O right hemicolectomy (Acute) secondary to cecal cancer H/O umbilical hernia repair (Acute) History of appendectomy (Acute) In 2000 History of (Acute) x 1 History of cholecystectomy (Acute) open History of hysterectomy with bilateral oophorectomy (Acute) In 1988 History of wrist fracture (Acute) Left -- s/p repair S/P IVC filter (Acute) Family History Father Dementia Brother Cancer colon cancer Social History Smoking and tobacco status: never smoked Alcohol intake: never Substance/Drug Use: never Household members: spouse Housing: House Vitals/I&O/Wt Last Vital Signs Temp 98.5 F 05/15/19 11:23 Pulse 63 05/15/19 11:23 Resp 18 05/15/19 11:23 BP 124/63 05/15/19 11:23 Pulse Ox 97 05/15/19 11:23 05/14/19 05/15/19 05/15/19 22:59 06:59 14:59 Intake Total 120 / 840 480 / 480 Output Total 250 / 250 1000 / 1000 Balance 120 / 840 -250 / 590 -520 / -520 Weight last 48 hrs Weight 202 lb Weight 199 lb 2 oz Physical Exam Narrative: EXAM NARRATIVE: The patient was encountered in her hospital room. She does not appear to be in any distress. The pupils seem equal. No carotid bruits are heard. Lungs are clear anteriorly. The heart is regular. The abdomen is moderately obese but is soft and has good bowel sounds. She may have very mild epigastric tenderness. She has a well-healed subcostal scar on the right side as well as a lower midline scar. No obvious masses are palpated. The extremities reveal no edema. Neurologically the patient appears to be grossly intact. Data Micro: Micro: Microbiology 05/14/19 08:45 Occult Blood (FIT) - Final Stool - Stool Asp irate A&P Assessment and plan (1) Heme positive stool: The patient is obviously anemic but has a history of anemia. Her stool is heme positive, but I let her know this is a very sensitive test for blood cells, and she has had no gross evidence of melena or hematochezia. She says last time she got her hemoglobin checked was a little over a year ago, so this could have been an ongoing problem. We discussed upper and lower endoscopy today, given her history of gastritis/Helicobacter infection as well as her history of colon cancer back in late 2014. She would like to talk to psychotherapist social worker to see how much of these procedures would be covered while she is here in the hospital. I told her I would return after they talk to her today and we will make arrangements if she would like to proceed. In the interim, I am going to allow her a consistent carbohydrate diet. Status: Acute Code(s): R19.5 - Other fecal abnormalities (2) History of gastritis: Found on endoscopy in late 2014. The patient has been on omeprazole OTC daily. Status: Acute Code(s): Z87.19 - Personal history of other diseases of the digestive system (3) History of colon cancer: Found on endoscopy in late 2014. The patient is status post right hemicolectomy. She has not had any endoscopy since then. Status: Acute Code(s): Z85.038 - Personal history of other malignant neoplasm of large intestine (4) Chronic anticoagulation: This obviously is not helping any blood loss issue, but it sounds as if the patient has a get indication for ongoing anticoagulation. Status: Acute Code(s): Z79.01 - prison (current) use of anticoagulants (5) Anemia: The patient seems to recall not having her hemoglobin checked for over a year. She has been getting more symptomatic over the past couple of months, but is difficult to know how long it took for her hemoglobin to get down to its admission level. Status: Acute Qualifiers: Anemia type: other cause Other causes of anemia: chronic disease, other Qualified Code(s): D63.8 - Anemia in other chronic diseases classified elsewhere Code(s): D64.9 - Anemia, unspecified Consult Attestations Medical Necessity Statement: See admitting service's notation. 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
--- NOTE | 2019-05-15 15:35 | P.PN_ITS ---
Subjective Subjective: Interval history: No acute events overnight. This morning on evaluation patient is lying comfortably in bed. States she did not have a good night sleep but is not sure why. Denies of having any shortness of breath, nausea, vomiting, abdominal pain, dizziness, palpitations. On review of labs hemoglobin is trending down again. And stool for occult blood was positive. Medications: Reviewed: Yes Vitals/I&O/Wt Last Vital Signs Temp 98.5 F 05/15/19 11:23 Pulse 63 05/15/19 11:23 Resp 18 05/15/19 11:23 BP 124/63 05/15/19 11:23 Pulse Ox 97 05/15/19 11:23 05/15/19 05/15/19 05/15/19 06:59 14:59 22:59 Intake Total 720 / 720 Output Total 250 / 250 1250 / 1250 Balance -250 / 590 -530 / -530 Weight last 48 hrs Weight 91.626 kg Weight 90.322 kg Physical Exam Narrative: EXAM NARRATIVE: General: No acute distress, AO x3 HEENT: PERRLA, pupils bilaterally equal and reactive, pallor Chest: Normal vesicular breath sounds, no added sounds, equal good air entry bilaterally CVS: S1-S2 regular, no murmurs, no tachycardia, no gallops, no rubs Abdomen: Obese, soft, nontender, no organomegaly, bowel sounds present Neuro: No focal deficits, no facial deformity, AO x3, power 5/5 in all limbs Data : 05/15/19 04:35 05/15/19 04:35 Micro: Microbiology 05/14/19 08:45 Occult Blood (FIT) - Final Stool - Stool Aspirate A&P Assessment and plan (1) Anemia: Status: Acute Qualifiers: Anemia type: other cause Other causes of anemia: chronic disease, other Qualified Code(s): D63.8 - Anemia in other chronic diseases classified elsewhere Code(s): D64.9 - Anemia, unspecified (2) Diabetes: Status: Acute Qualifiers: Diabetes mellitus complication status: with hyperglycemia Diabetes mellitus terminal press operator insulin use: without skilled nursing use Diabetes mellitus type: type 2 Qualified Code(s): E11.65 - Type 2 diabetes mellitus with hyperglycemia Code(s): E11.9 - Type 2 diabetes mellitus without complications (3) Malignant neoplasm of cecum: -in remission Status: Deleted Code(s): C18.0 - Malignant neoplasm of cecum (4) Left leg DVT: Status: Acute Qualifiers: Affected thrombotic vein of extremity: unspecified vein of extremity Chronicity: chronic Qualified Code(s): I82.502 - Chronic embolism and thrombosis of unspecified deep veins of left lower extremity Code(s): I82.402 - Acute embolism and thrombosis of unspecified deep veins of left lower extremity (5) HTN (hypertension): Status: Acute Qualifiers: Hypertension type: essential hypertension Qualified Code(s): I10 - Essential (primary) hypertension Code(s): I10 - Essential (primary) hypertension Additional A&P Information Anemia: GI bleed: Hemoglobin 8.5 today. Hemoglobin trending down. Patient is post 2 units transfusion day before yesterday. Stool for occult blood positive. Patient has history of colon cancer in past requiring hemicolectomy. Continue with Protonix twice daily. We will keep patient n.p.o. now for a possible colonoscopy. We will consult surgery. Patient is agreeable for colonoscopy but wants to confirm with perinatal social worker regarding her insurance first. We will check hemoglobin daily daily. Until patient has melena or hematemesis. Type 2 diabetes mellitus: Patient was started yesterday on NovoLog 5 units pre- meals and Lantus 10 units at bedtime. In all patient received 43 units of insulin yesterday with 18 units last night. Blood sugar today morning 142. Given the fact that patient might be n.p.o. for colonoscopy will hold off on 5 units of insulin before meals and switch onto mild insulin sliding scale. Hypertension: Continue with home dose of Lopressor but will hold off on hydrochlorothiazide for now given the possible GI bleed. History of DVT: Patient is on Eliquis for a DVT 5 years ago. Given the GI bleed Eliquis might have to be withheld on discharge. Will get lower limb Dopplers to see if patient has a DVT and if will require any IVC filter. Protonix twice daily for GI prophylaxis. We will hold off on DVT prophylaxis given the GI bleed and possible DVT. case management consult for medication assistance (has no insurance) and referral to new PCP(specifically requests an MD) -Dispo: home -Code status: FULL code Attestations Medical Necessity Statement*: Needs controlled hospitalization for management of anemia due to GI bleed. Time Spent in Patient Care: 16 - 35 minutes Coding Level of Care Code Acute Recruiting Operations Consultant for g Fwd Diagnoses Anemia D63.8 Anemia type: other cause Other causes of anemia: chronic disease, other Diabetes E11.65 Diabetes mellitus complication status: with hyperglycemia Diabetes mellitus terminal press operator insulin use: without skilled nursing use Diabetes mellitus type: type 2 Malignant neoplasm of cecum C18.0 Left leg DVT I82.502 Affected thrombotic vein of extremity: unspecified vein of extremity Chronicity: chronic HTN (hypertension) I10 Hypertension type: essential hypertension
--- NOTE | 2019-05-15 15:43 | USCV_ITS ---
Rima Jacobs Age: 68 Gender: F : 1950 Exam Date: 05/15/2019 18:47 Ordering Phys: Iker Villalpando MD Technologist: Lynette Bhandari Exam Location: [facility] [place]_ Indication: DVT HISTORY: DVT. PROCEDURES: Venous duplex imaging was performed in bilateral lower extremities. The following venous structures were evaluated: common femoral vein, profunda vein, proximal portion of the greater saphenous vein, superficial femoral vein, and the popliteal vein. In addition, the posterior tibial and peroneal trunk were evaluated. Serial compression, augmentation maneuvers, and spectral Doppler flow evaluation were performed. FINDINGS: Normal 2-D Doppler and augmentation and compressibility throughout the lower extremity venous structures. Additional imaging through the proximal calf veins also reveals no thrombus. Limited evaluation of the greater saphenous vein is patent with no thrombus.. CONCLUSIONS No evidence of DVT in the above-mentioned identifiable veins. Dr Pedro Wright MD [facility] (Electronically Signed) Final Date: 16 May 2019 23:37 S
[2019-05-15 15:44] VITALS: BP 114/65; PULSE 74; RESP 18; TEMP 36.9; O2SAT 97
[2019-05-15 16:52] LABS: Glucose Point of Care 303 mg/dL (70-110)
--- NOTE | 2019-05-15 19:00 | PC.NURSE ---
INTRODUCTION OF STAFF AND REPORT RECEIVED, AIDET.
[2019-05-15 19:49] VITALS: BP 109/64; PULSE 69; RESP 20; TEMP 37.2; O2SAT 98
[2019-05-15] MEDS: acetaminophen 325 mg Tablet 650 MG PO (21:00)
[2019-05-15] MEDS: insulin glargine 100 units/1 mL 10 UNIT SUBCUT (21:01)
[2019-05-15 21:41] LABS: Glucose Point of Care 320 mg/dL (70-110)
[2019-05-16] VITALS: BP 113/66; PULSE 67; RESP 18; TEMP 37.1; O2SAT 99
[2019-05-16 04:00] VITALS: BP 110/66; PULSE 63; RESP 20; TEMP 36.8; O2SAT 98
[2019-05-16 06:11] LABS: Basophils % 0.4 %; Eosinophils # 0.3 10^3/uL (0.0-0.8); Eosinophils % 3.5 %; Hemoglobin 8.6 g/dL (11.5-15.3); Lymphocytes # 3.5 10^3/uL (0.8-4.8); Lymphocytes % 37.2 %; Mean Corpuscular HGB Conc 29.7 g/dL (30.0-36.0); Mean Corpuscular Hemoglobin 24.8 pg (28.0-34.0); Mean Corpuscular Volume 83.6 fL (81-99); Mean Platelet Volume 11.2 fL (7.4-10.4); Monocytes # 0.9 10^3/uL (0.2-0.9); Monocytes % 9.2 %; Neutrophils # 4.5 10^3/uL (1.8-7.7); Neutrophils % 48.3 %; Nucleated Red Blood Cells % 0 %; Platelet Count 218 10^3/cmm (130-400); Red Blood Count 3.47 10^6/uL (4.1-5.3); Red Cell Distribution Width 15.2 % (12.1-15.1); White Blood Count 9.3 10^3/uL (4.0-10.0)
--- NOTE | 2019-05-16 06:32 | PM.PN ---
Subjective Subjective: Interval history: The patient has no complaints today. She has decided that she wants to pursue upper and lower endoscopy while she is hospitalized. Vitals/I&O/Wt Last Vital Signs Temp 98.3 F 05/16/19 04:00 Pulse 63 05/16/19 04:00 Resp 20 H 05/16/19 04:00 BP 110/66 05/16/19 04:00 Pulse Ox 98 05/16/19 04:00 05/15/19 05/15/19 05/16/19 14:59 22:59 06:59 Intake Total 720 / 720 480 / 1200 240 / 1440 Output Total 1250 / 1250 Balance -530 / -530 480 / -50 240 / 190 Weight last 48 hrs Weight 199 lb 1 oz Weight 202 lb Physical Exam Narrative: EXAM NARRATIVE: Exam is unchanged. The patient does appear to have a small hernia to the left side of midline just below the umbilicus at her incision. She has apparently been aware of this for some time but it really has not bothered her much. Data : 05/16/19 04:57 05/15/19 04:35 A&P Assessment and plan (1) Heme positive stool: Will arrange upper and lower endoscopy for tomorrow. Bowel prep today. Status: Acute Code(s): R19.5 - Other fecal abnormalities (2) History of gastritis: Status: Acute Code(s): Z87.19 - Personal history of other diseases of the digestive system (3) History of colon cancer: Status: Acute Code(s): Z85.038 - Personal history of other malignant neoplasm of large intestine (4) Chronic anticoagulation: Will hold anticoagulation after today's doses. Status: Acute Code(s): Z79.01 - buttermaker helper (current) use of anticoagulants Attestations Medical Necessity Statement*: See admitting service's notation. Coding Level of Care Code Acute Professional Driver for [facility] Fwd Diagnoses Heme positive stool R19.5 History of gastritis Z87.19 History of colon cancer Z85.038 Chronic anticoagulation Z79.01
[2019-05-16 06:36] LABS: Alanine Aminotransferase 13 U/L (0-33); Albumin Level 2.7 g/dL (3.5-5.2); Alkaline Phosphatase 55 IU/L (35-105); Anion Gap 20.8 (5-19); Blood Urea Nitrogen 23 mg/dL (8-23); Calcium 9.8 mg/Dl (8.8-10.2); Carbon Dioxide 19 mmol/L (22-29); Chloride 101 mmol/L (98-107); Globulin 3.3 g/dL (1.3-4.6); Glomerular Filtration Rate 71.3 mL/min (90-130); Glucose 140 mg/dL (74-106); Potassium 3.8 mmol/L (3.5-5.1); Sodium 137 mmol/L (136-145); Total Bilirubin 0.3 mg/dL (0.15-1.2)
--- NOTE | 2019-05-16 06:39 | PC.NURSE ---
Pt rested well this night. no complaints voiced.
[2019-05-16 06:45] LABS: Glucose Point of Care 182 mg/dL (70-110)
[2019-05-16 06:51] LABS: Aspartate Amino Transferase 25 U/L (0-32)
[2019-05-16 08:00] VITALS: BP 102/58; PULSE 63; RESP 18; TEMP 37.3; O2SAT 98
[2019-05-16] MEDS: pantoprazole DR 40 mg Tablet PO ×2 (09:23→17:34)
[2019-05-16] MEDS: metoprolol tartrate 50 mg Tablet PO ×2 (09:23→17:34)
[2019-05-16 11:43] LABS: Glucose Point of Care 204 mg/dL (70-110)
[2019-05-16] MEDS: magnesium citrate Btl 296 mL PO ×2 (11:55→17:44)
--- NOTE | 2019-05-16 14:42 | P.PN_ITS ---
Subjective Subjective: Interval history: No acute events overnight. Denies of having any melena, hematemesis, nausea, vomiting, abdominal pain. The patient has no complaints today. She has decided that she wants to pursue upper and lower endoscopy while she is hospitalized. Medications: Reviewed: Yes Vitals/I&O/Wt Last Vital Signs Temp 99.2 F 05/16/19 08:00 Pulse 63 05/16/19 08:00 Resp 18 05/16/19 08:00 BP 102/58 05/16/19 08:00 Pulse Ox 98 05/16/19 08:00 05/15/19 05/16/19 05/16/19 22:59 06:59 14:59 Intake Total 480 / 1200 240 / 1440 800 / 800 Balance 480 / -50 240 / 190 800 / 800 Weight last 48 hrs Weight 90.293 kg Weight 91.626 kg Physical Exam Narrative: EXAM NARRATIVE: General: No acute distress, AO x3 HEENT: PERRLA, pupils bilaterally equal and reactive, pallor Chest: Normal vesicular breath sounds, no added sounds, equal good air entry bilaterally CVS: S1-S2 regular, no murmurs, no tachycardia, no gallops, no rubs Abdomen: Obese, soft, nontender, no organomegaly, bowel sounds present Neuro: No focal deficits, no facial deformity, AO x3, power 5/5 in all limbs Data : 05/16/19 04:57 05/16/19 04:57 A&P Assessment and plan (1) Anemia: Status: Acute Qualifiers: Anemia type: other cause Other causes of anemia: chronic disease, other Qualified Code(s): D63.8 - Anemia in other chronic diseases classified elsewhere Code(s): D64.9 - Anemia, unspecified (2) Diabetes: Status: Acute Qualifiers: Diabetes mellitus complication status: with hyperglycemia Diabetes mellitus tank terminal gauger insulin use: without tank terminal gauger use Diabetes mellitus type: type 2 Qualified Code(s): E11.65 - Type 2 diabetes mellitus with hyperglycemia Code(s): E11.9 - Type 2 diabetes mellitus without complications (3) Malignant neoplasm of cecum: -in remission Status: Deleted Code(s): C18.0 - Malignant neoplasm of cecum (4) Left leg DVT: Status: Acute Qualifiers: Affected thrombotic vein of extremity: unspecified vein of extremity Chronicity: chronic Qualified Code(s): I82.502 - Chronic embolism and thrombosi s of unspecified deep veins of left lower extremity Code(s): I82.402 - Acute embolism and thrombosis of unspecified deep veins of left lower extremity (5) HTN (hypertension): Status: Acute Qualifiers: Hypertension type: essential hypertension Qualified Code(s): I10 - Essential (primary) hypertension Code(s): I10 - Essential (primary) hypertension Additional A&P Information Anemia: GI bleed: Hemoglobin stable today. Hemoglobin has been trending down. Patient is post 2 units transfusion day before yesterday. Stool for occult blood positive. Patient has history of colon cancer in past requiring hemicolectomy. Continue with Protonix twice daily. Patient is planned for EGD/colonoscopy tomorrow. Patient is getting bowel prep today. Continue with clear liquid diet as per surgical recommendations for today. N.p.o. after midnight for procedure tomorrow morning. Surgical recommendations appreciated. Type 2 diabetes mellitus: Blood sugar okay controlled. Patient has required more than 30 units of insulin last 24 hours. Given the fact that patient might be n.p.o. for colonoscopy will hold off on 5 units of insulin before meals and continue with mild insulin sliding scale. Hypertension: Continue with home dose of Lopressor but will hold off on hydrochlorothiazide for now given the possible GI bleed. Well controlled History of DVT: Patient is on Eliquis for a DVT 5 years ago. Given the GI bleed Eliquis might have to be withheld on discharge. Will get lower limb Dopplers to see if patient has a DVT and if will require any IVC filter. Doppler done but results awaited. Protonix twice daily for GI prophylaxis. We will hold off on DVT prophylaxis given the GI bleed and possible DVT. case management consult for medication assistance (has no insurance) and referral to new PCP(specifically requests an MD) -Dispo: home -Code status: FULL code Attestations Medical Necessity Statement*: Needs continued hospitalization for management of anemia due to GI bleed. Time Spent in Patient Care: 16 - 35 minutes Coding Level of Care Code Acute Director Mobile Media Solutions for [facility] Fwd Diagnoses Anemia D63.8 Anemia type: other cause Other causes of anemia: chronic disease, other Diabetes E11.65 Diabetes mellitus complication status: with hyperglycemia Diabetes mellitus tank terminal gauger insulin use: without penitentiary use Diabetes mellitus type: type 2 Malignant neoplasm of cecum C18.0 Left leg DVT I82.502 Affected thrombotic vein of extremity: unspecified vein of extremity Chronicity: chronic HTN (hypertension) I10 Hypertension type: essential hypertension
[2019-05-16 16:00] VITALS: BP 137/84; PULSE 71; RESP 18; TEMP 36.7; O2SAT 99
[2019-05-16 16:40] LABS: Glucose Point of Care 282 mg/dL (70-110)
--- NOTE | 2019-05-16 17:25 | PC.PT ---
Late entry for05/15/19; nursing reports patient remains independent with transfers in room, and ambulating with in hallway, PT goals achieved, no further visits planned at this time
--- NOTE | 2019-05-16 17:40 | DCPLANNER ---
Pg 2 of IM explained to and signed by pt. No questions, copy provided.
--- NOTE | 2019-05-16 19:00 | PC.NURSE ---
Introduction of staff and report received, aidet.
[2019-05-16 19:30] VITALS: BP 121/74; PULSE 65; RESP 20; TEMP 36.7; O2SAT 100
[2019-05-16] MEDS: bisacodyl 5 mg Tablet 40 MG PO (20:53)
[2019-05-16] MEDS: insulin glargine 100 units/1 mL 14 UNIT SUBCUT (20:56)
[2019-05-16] MEDS: acetaminophen 325 mg Tablet 650 MG PO (20:56)
[2019-05-16 21:24] LABS: Glucose Point of Care 219 mg/dL (70-110)
[2019-05-17] VITALS (13 sets, daily range): BP systolic 100–126; BP diastolic 57–81; PULSE 60–75; RESP 16–20; TEMP 36.2–37.6; O2SAT 95–100
[2019-05-17 04:20] LABS: Basophils % 0.3 %; Eosinophils # 0.4 10^3/uL (0.0-0.8); Eosinophils % 3.6 %; Hematocrit 25.7 % (37.0-47.0); Hemoglobin 7.9 g/dL (11.5-15.3); Lymphocytes # 3.5 10^3/uL (0.8-4.8); Lymphocytes % 34.1 %; Mean Corpuscular HGB Conc 30.7 g/dL (30.0-36.0); Mean Corpuscular Hemoglobin 24.5 pg (28.0-34.0); Mean Corpuscular Volume 79.6 fL (81-99); Mean Platelet Volume 10.9 fL (7.4-10.4); Monocytes % 9.6 %; Neutrophils # 5.2 10^3/uL (1.8-7.7); Neutrophils % 51.5 %; Nucleated Red Blood Cells % 0 %; Platelet Count 199 10^3/cmm (130-400); Red Blood Count 3.23 10^6/uL (4.1-5.3); Red Cell Distribution Width 15.2 % (12.1-15.1); White Blood Count 10.1 10^3/uL (4.0-10.0)
[2019-05-17 04:40] LABS: Alanine Aminotransferase 12 U/L (0-33); Alkaline Phosphatase 44 IU/L (35-105); Anion Gap 16.7 (5-19); Aspartate Amino Transferase 18 U/L (0-32); Blood Urea Nitrogen 13 mg/dL (8-23); Calcium 9.2 mg/Dl (8.8-10.2); Carbon Dioxide 25 mmol/L (22-29); Chloride 97 mmol/L (98-107); Globulin 2.5 g/dL (1.3-4.6); Glomerular Filtration Rate 83.2 mL/min (90-130); Glucose 141 mg/dL (74-106); Sodium 136 mmol/L (136-145); Total Bilirubin 0.4 mg/dL (0.15-1.2); Total Protein 5.5 g/dL (6.6-8.7)
[2019-05-17 04:42] LABS: Potassium 2.7 mmol/L (3.5-5.1)
[2019-05-17 06:59] LABS: Glucose Point of Care 158 mg/dL (70-110)
--- NOTE | 2019-05-17 08:12 | PM.PN ---
Subjective Subjective: Interval history: The patient had some difficulty drinking her magnesium citrate yesterday and keeping it down. We eventually gave her some Dulcolax tablets last night and this apparently worked very well for her. Vitals/I&O/Wt Last Vital Signs Temp 98.0 F 05/17/19 07:43 Pulse 67 05/17/19 07:43 Resp 18 05/17/19 07:43 BP 100/66 05/17/19 07:43 Pulse Ox 97 05/17/19 07:43 05/16/19 05/17/19 05/17/19 22:59 06:59 14:59 Intake Total 1440 / 2240 Output Total 300 / 300 1900 / 2200 Balance 1140 / 1940 -1900 / 40 Weight last 48 hrs Weight 199 lb 1 oz Weight 199 lb 1 oz Physical Exam Narrative: EXAM NARRATIVE: Physical exam is unchanged. Data : 05/17/19 03:45 05/17/19 03:45 Micro: Microbiology 05/16/19 11:43 C.difficile Toxin B Gene (PCR) - Final Stool A&P Assessment and plan (1) Heme positive stool: Replace potassium. Endoscopy today. Status: Acute Code(s): R19.5 - Other fecal abnormalities (2) History of gastritis: Status: Acute Code(s): Z87.19 - Personal history of other diseases of the digestive system (3) History of colon cancer: Status: Acute Code(s): Z85.038 - Personal history of other malignant neoplasm of large intestine (4) Chronic anticoagulation: Holding anticoagulation currently. Status: Acute Code(s): Z79.01 - shelter (current) use of anticoagulants Attestations Medical Necessity Statement*: See admitting service's notation. Coding Level of Care Code Acute Transition Mgr for [facility] Fwd Diagnoses Heme positive stool R19.5 History of gastritis Z87.19 History of colon cancer Z85.038 Chronic anticoagulation Z79.01
[2019-05-17] MEDS: potassium chloride premix 40 MEQ/100 ML PREMIX 25 MEQ IV (08:40)
[2019-05-17] MEDS: metoprolol tartrate 50 mg Tablet PO ×2 (08:40→17:14)
[2019-05-17] MEDS: pantoprazole DR 40 mg Tablet PO (08:40)
[2019-05-17] MEDS: sodium chloride 0.9% 1,000 ML 30 ML IV (08:41)
[2019-05-17] MEDS: sodium chloride 0.9% 1,000 ML 30 ML (09:45)
--- NOTE | 2019-05-17 10:57 | ANES.PREANES ---
Pre-Anesthetic Assessment Pre-Anesthetic Assessment: Height/Weight: Height 1.65 m Weight 90.293 kg Temp Pulse Resp BP Pulse Ox 98.1 F 64 18 126/65 100 05/17/19 09:53 05/17/19 09:53 05/17/19 09:53 05/17/19 09:53 05/17/19 09:53 Preop Diagnosis: Heme positive stool, anemia, history of gastritis, history of colon cancer Proposed Procedure: Operation Date: 05/17/19 10:30 Proposed Procedures p EGD/COLON(Not Applicable) - David Bergman MD s Colonoscopy(Not Applicable) - David Bergman MD Familial anesthetic complications: none Was Beta Frantz taken within 24 hours: Yes Last Intake: 08:00 Social: Social History: No alcohol and No tobacco Exam: Pre-Anes Outpt Exam: alert, oriented x 3, clear to auscultation bilaterally and regular rate & rhythm Airway: Submandibular: WNL Cervical ROM: WNL MP: 1 Dentition: False History/ROS: Other Pulmonary: Pulmonary: WHITNEY CV/HEM: CV/HEM: Anemia, Angina (Stable) (wednesday night), DVT and HTN : : None reported Hepatic: Hepatic: None reported GI: GI: GERD (controlled) Metabolic: Metabolic: DM (type II 148 this am ) and Morbid obesity Comments: in ER patient Blood sugar was 660 Musc/skel: Musc/skel: None reported Neuropsych: Neuropsych: None reported Anesthetic Plan: ASA status: IV Anesthesia: MAC Risk of > 500 ml blood loss (7ml/kg in children): No Meds/Allergies Current Medications: Current Medications Generic Name Dose Route Start Last Admin Trade Name Freq PRN Reason Stop Dose Admin Acetaminophen 650 mg 05/13/19 01:20 05/16/19 20:56 Tylenol PO 650 mg Q6H PRN Administration Mild/Mod Pain Or Temp >/= 101 Hydrochlorothiazid e 25 mg 05/14/19 09:00 05/15/19 08:37 Hctz PO 25 mg DAILY DIEGO Administration Sodium Chloride 1,000 mls @ 30 ml s/hr 05/17/19 06:45 05/17/19 08:41 Sodium Chloride 0.9% IV 05/18/19 06:44 30 mls/hr .Q24H DIEGO Administration Potassium Chloride 40 meq in 100 mls @ 25 mls/hr 05/17/19 08:15 05/17/19 08:40 K-Imtiaz IV 05/17/19 12:14 25 mls/hr ONCE ONE Administration Insulin Aspart 0 unit 05/14/19 21:00 05/16/19 21:44 Novolog SUBCUT 8 unit BEDTIME DIEGO Administration Protocol Insulin Aspart 0 unit 05/15/19 18:00 05/17/19 08:10 Novolog SUBCUT Not Given TIDWM DIEGO Protocol Insulin Glargine 14 unit 05/16/19 21:00 05/16/19 20:56 Lantus SUBCUT 14 unit BEDTIME DIEGO Administration Metoprolol Tartrat e 50 mg 05/13/19 18:00 05/17/19 08:40 Lopressor PO 50 mg BID DIEGO Administration Pantoprazole Sodiu m 40 mg 05/15/19 09:00 05/17/19 08:40 Protonix PO 40 mg BID DIEGO Administration PFSH Anesthesia PFSH: Family History Father Dementia Brother Cancer colon cancer Social History Smoking and tobacco status: never smoked Alcohol intake: never Substance/Drug Use: never Household members: spouse Housing: House Data Anesthesia CBC & Chem 7: 05/17/19 03:45 05/17/19 03:45 Other Labs: Laboratory Results - last 48 hr 05/12/19 05/15/19 05/15/19 19:42 16:48 21:22 WBC RBC Hgb Hct MCV MCH MCHC RDW Plt Count MPV Neut % (Auto) Lymph % (Auto) Charlton % (Auto) Eos % (Auto) Baso % (Auto) Neut # (Auto) Lymph # (Auto) Charlton # (Auto) Eos # (Auto) Baso # (Auto) Nucleated RBC % (auto) Nucleated RBCs # Sodium Potassium Chloride Carbon Dioxide Anion Gap BUN Creatinine GFR Calculation Glucose POC Glucose 303 320 Calcium Total Bilirubin AST ALT Alkaline Phosphatase Total Protein Albumin Globulin Crossmatch See Detail 05/16/19 05/16/19 05/16/19 04:57 04:57 06:24 WBC 9.3 RBC 3.47 L Hgb 8.6 L Hct 29.0 L MCV 83.6 MCH 24.8 L MCHC 29.7 L RDW 15.2 H Plt Count 218 MPV 11.2 H Neut % (Auto) 48.3 Lymph % (Auto) 37.2 Charlton % (Auto) 9.2 Eos % (Auto) 3.5 Baso % (Auto) 0.4 Neut # (Auto) 4.5 Lymph # (Auto) 3.5 Charlton # (Auto) 0.9 Eos # (Auto) 0.3 Baso # (Auto) 0.0 Nucleated RBC % (auto) 0 Nucleated RBCs # 0.0 Sodium 137 Potassium 3.8 Chloride 101 Carbon Dioxide 19 L Anion Gap 20.8 H BUN 23 Creatinine 0.8 GFR Calculation 71.3 L Glucose 140 H POC Glucose 182 Calcium 9.8 Total Bilirubin 0.3 AST 25 ALT 13 Alkaline Phosphatase 55 Total Protein 6.0 L Albumin 2.7 L Globulin 3.3 Crossmatch 05/16/19 05/16/19 05/16/19 11:16 16:35 21:10 WBC RBC Hgb Hct MCV MCH MCHC RDW Plt Count MPV Neut % (Auto) Lymph % (Auto) Charlton % (Auto) Eos % (Auto) Baso % (Auto) Neut # (Auto) Lymph # (Auto) Charlton # (Auto) Eos # (Auto) Baso # (Auto) Nucleated RBC % (auto) Nucleated RBCs # Sodium Potassium Chloride Carbon Dioxide Anion Gap BUN Creatinine GFR Calculation Glucose POC Glucose 204 282 219 Calcium Total Bilirubin AST ALT Alkaline Phosphatase Total Protein Albumin Globulin Crossmatch 05/17/19 05/17/19 05/17/19 03:45 03:45 06:44 WBC 10.1 H RBC 3.23 L Hgb 7.9 L Hct 25.7 L MCV 79.6 L MCH 24.5 L MCHC 30.7 RDW 15.2 H Plt Count 199 MPV 10.9 H Neut % (Auto) 51.5 Lymph % (Auto) 34.1 Charlton % (Auto) 9.6 Eos % (Auto) 3.6 Baso % (Auto) 0.3 Neut # (Auto) 5.2 Lymph # (Auto) 3.5 Charlton # (Auto) 1.0 H Eos # (Auto) 0.4 Baso # (Auto) 0.0 Nucleated RBC % (auto) 0 Nucleated RBCs # 0.0 Sodium 136 Potassium 2.7 L* D Chloride 97 L Carbon Dioxide 25 Anion Gap 16.7 BUN 13 Creatinine 0.7 GFR Calculation 83.2 L Glucose 141 H POC Glucose 158 Calcium 9.2 Total Bilirubin 0.4 AST 18 ALT 12 Alkaline Phosphatase 44 Total Protein 5.5 L Albumin 3.0 L Globulin 2.5 Crossmatch Micro: Microbiology 05/16/19 11:43 C.difficile Toxin B Gene (PCR) - Final Stool Cardiac Studies: No Data to Display
--- NOTE | 2019-05-17 12:01 | ANE.PACU ---
 Inpatient post-anesthesia follow up: Airway intact: Yes Vital signs: Temperature 99.7 F Pulse Rate [Bilate ral Radial] 66 Pulse Rate [Apical ] 64 Pulse Rate 75 Respiratory Rate 16 Blood Pressure [Ri ght Arm] 103/57 Blood Pressure 100/66 Pulse Oximetry 98 Oxygen Delivery Me thod Nasal Cannula Oxygen Flow Rate 2.0 Fraction of Inspir ed Oxygen Hydration adequate: Yes Nausea and vomiting: No Pain level: 1 Mental status: Baseline
[2019-05-17 13:09] LABS: Glucose Point of Care 220 mg/dL (70-110)
--- NOTE | 2019-05-17 13:10 | PM.PN ---
Subjective Subjective: Interval history: Patient seen this morning after her EGD and colonoscopy. Patient had difficulty with bowel prep yesterday so was given Dulcolax overnight. Postprocedure patient feels very weak. Case discussed with Dr. Bergman and patient was found to have a possible colon cancer on colonoscopy. Patient at present states she would want to have surgery to have cancer removed. At present she denies of having any nausea, vomiting, palpitations, dizziness, headache. Medications: Reviewed: Yes Vitals/I&O/Wt Last Vital Signs Temp 99.7 F H 05/17/19 11:54 Pulse 65 05/17/19 12:07 Resp 18 05/17/19 12:07 BP 107/63 05/17/19 12:07 Pulse Ox 99 05/17/19 12:07 05/16/19 05/17/19 05/17/19 22:59 06:59 14:59 Intake Total 1440 / 2240 510.417 / 510.417 Output Total 300 / 300 1900 / 2200 Balance 1140 / 1940 -1900 / 40 510.417 / 510.417 Weight last 48 hrs Weight 90.293 kg Weight 90.293 kg Physical Exam Narrative: EXAM NARRATIVE: General: No acute distress, AO x3 HEENT: PERRLA, pupils bilaterally equal and reactive, pallor Chest: Normal vesicular breath sounds, no added sounds, equal good air entry bilaterally CVS: S1-S2 regular, no murmurs, no tachycardia, no gallops, no rubs Abdomen: Obese, soft, nontender, no organomegaly, bowel sounds present Neuro: No focal deficits, no facial deformity, AO x3, power 5/5 in all limbs Data : 05/17/19 03:45 05/17/19 03:45 Micro: Microbiology 05/16/19 11:43 C.difficile Toxin B Gene (PCR) - Final Stool A&P Assessment and plan (1) Anemia: Status: Acute Qualifiers: Anemia type: other cause Other causes of anemia: chronic disease, other Qualified Code(s): D63.8 - Anemia in other chronic diseases classified elsewhere Code(s): D64.9 - Anemia, unspecified (2) Diabetes: Status: Acute Qualifiers: Diabetes mellitus complication status: with hyperglycemia Diabetes mellitus nursing home insulin use: without nursing home use Diabetes mellitus type: type 2 Qualified Code(s): E11.65 - Type 2 diabetes mellitus with hyperglycemia Code(s): E11.9 - Type 2 diabetes mellitus without complications (3) Malignant neoplasm of cecum: -in remission Status: Deleted Code(s): C18.0 - Malignant neoplasm of cecum (4) Left leg DVT: Status: Acute Qualifiers: Affected thrombotic vein of extremity: unspecified vein of extremity Chronicity: chronic Qualified Code(s): I82.502 - Chronic embolism and thrombosis of unspecified deep veins of left lower extremity Code(s): I82.402 - Acute embolism and thrombosis of unspecified deep veins of left lower extremity (5) HTN (hypertension): Status: Acute Qualifiers: Hypertension type: essential hypertension Qualified Code(s): I10 - Essential (primary) hypertension Code(s): I10 - Essential (primary) hypertension Additional A&P Information Anemia: Lower GI bleed: Hemoglobin mildly declined today. 7.9. Patient is post 2 units transfusion during this admission. Stool for occult blood positive. Patient has history of colon cancer in past requiring hemicolectomy. Patient is post EGD and colonoscopy today and colonoscopy suggestive of colon cancer. Continue with Protonix daily as EGD is normal.. Patient wants to start surgery for colon cancer. For now we will keep patient n.p.o. and discuss with Dr. Bergman regarding availability of the procedure and advance diet accordingly. Surgical recommendations appreciated. We will continue to hold Eliquis for now. Type 2 diabetes mellitus: Blood sugar okay controlled. Patient has required more than 8 units of pre-meals and 14 units of Lantus in last 24 hours. Will restart the Lantus and moderate insulin sliding scale for now. Hypertension: Blood pressure under control. Continue with home dose of Lopressor but will hold off on hydrochlorothiazide for now given the possible GI bleed. History of DVT: Patient is on Eliquis for a DVT 5 years ago. Given the GI bleed Eliquis might have to be withheld on discharge. Doppler negative for DVT. Protonix daily for GI prophylaxis. No pharmacological DVT prophylaxis due to anemia and GI bleed. Will put patient on SCDs as Dopplers are negative for any DVT. case management consult for medication assistance (has no insurance) and referral to new PCP(specifically requests an MD) -Dispo: home -Code status: FULL code Attestations Medical Necessity Statement*: Needs controlled hospitalization for lower GI bleed. Time Spent in Patient Care: 16 - 35 minutes Coding Level of Care Code Acute Manager Completions for [facility] Fwd Diagnoses Anemia D63.8 Anemia type: other cause Other causes of anemia: chronic disease, other Diabetes E11.65 Diabetes mellitus complication status: with hyperglycemia Diabetes mellitus terminal superintendent insulin use: without nursing home use Diabetes mellitus type: type 2 Malignant neoplasm of cecum C18.0 Left leg DVT I82.502 Affected thrombotic vein of extremity: unspecified vein of extremity Chronicity: chronic HTN (hypertension) I10 Hypertension type: essential hypertension
[2019-05-17 14:52] LABS: Carcinoembryonic Antigen 3.2 ng/mL (0.0-4.7)
--- NOTE | 2019-05-17 15:38 | PC.RESP ---
Patient given Pulmonary Rehab information.
[2019-05-17 16:55] LABS: Glucose Point of Care 243 mg/dL (70-110)
[2019-05-17] MEDS: ondansetron 2 mg/ML SDV 2 mL 4 MG IVP (17:13)
[2019-05-17] MEDS: ciprofloxacin 500 mg Tablet PO (18:27)
[2019-05-17] MEDS: bisacodyl 5 mg Tablet 10 MG PO (18:28)
[2019-05-17] MEDS: metroNIDAZOLE 500 MG Tablet PO (18:28)
--- NOTE | 2019-05-17 19:00 | PC.NURSE ---
INTRODUCTION OF STAFF AND REPORT RECEIVED, AIDET.
[2019-05-17 21:43] LABS: Glucose Point of Care 127 mg/dL (70-110)
[2019-05-17] MEDS: insulin glargine 100 units/1 mL 14 UNIT SUBCUT (22:42)
[2019-05-17] MEDS: acetaminophen 325 mg Tablet PO (22:43)
[2019-05-18] VITALS (27 sets, daily range): BP systolic 98–164; BP diastolic 60–84; PULSE 55–69; RESP 16–22; TEMP 36.4–37.1; O2SAT 93–99
[2019-05-18 06:58] LABS: Glucose Point of Care 137 mg/dL (70-110)
--- NOTE | 2019-05-18 07:01 | PM.PN ---
Subjective Subjective: Interval history: The patient says she feels well today. She has decided that she would like to proceed with a partial colectomy while she is hospitalized. Vitals/I&O/Wt Last Vital Signs Temp 98.0 F 05/18/19 04:00 Pulse 64 05/18/19 04:00 Resp 18 05/18/19 04:00 BP 98/60 05/18/19 04:00 Pulse Ox 96 05/18/19 04:00 05/17/19 05/18/19 05/18/19 22:59 06:59 14:59 Intake Total 1200 / 2570.417 Balance 1200 / 2570.417 Weight last 48 hrs Weight 191 lb 2 oz Weight 199 lb 1 oz Physical Exam Narrative: EXAM NARRATIVE: Abdomen remains soft. Data : 05/17/19 03:45 05/17/19 03:45 Other Labs: Laboratory Tests 05/17/19 14:09 Carcinoembryonic Ag 3.2 A&P Assessment and plan (1) Cancer of descending colon: An exploratory laparotomy with partial colectomy was discussed with the patient. Risks of bleeding, infection, internal organ injury, anastomotic breakdown with possible need for reoperation, etc. were all gone over. She seems to understand and would like to proceed. Awaiting labs this morning. Status: Acute Code(s): C18.6 - Malignant neoplasm of descending colon Attestations Medical Necessity Statement*: See admitting service's notation. Coding Level of Care Code Acute Supervisor Of Officials for [facility] Diagnoses Cancer of descending colon C18.6
[2019-05-18] MEDS: metroNIDAZOLE 500 MG Tablet PO (07:25)
[2019-05-18] MEDS: ciprofloxacin 500 mg Tablet PO (07:26)
[2019-05-18 07:40] LABS: Basophils % 0.5 %; Eosinophils # 0.2 10^3/uL (0.0-0.8); Eosinophils % 2.8 %; Hematocrit 26.4 % (37.0-47.0); Hemoglobin 7.7 g/dL (11.5-15.3); Lymphocytes # 2.2 10^3/uL (0.8-4.8); Lymphocytes % 27.9 %; Mean Corpuscular HGB Conc 29.2 g/dL (30.0-36.0); Mean Corpuscular Hemoglobin 24.2 pg (28.0-34.0); Mean Platelet Volume 10.8 fL (7.4-10.4); Monocytes # 0.8 10^3/uL (0.2-0.9); Monocytes % 9.6 %; Neutrophils # 4.6 10^3/uL (1.8-7.7); Neutrophils % 58.4 %; Nucleated Red Blood Cells % 0 %; Platelet Count 204 10^3/cmm (130-400); Red Blood Count 3.18 10^6/uL (4.1-5.3); Red Cell Distribution Width 15.5 % (12.1-15.1); White Blood Count 7.9 10^3/uL (4.0-10.0)
[2019-05-18 07:54] LABS: Anion Gap 14.6 (5-19); Blood Urea Nitrogen 10 mg/dL (8-23); Calcium 9.1 mg/Dl (8.8-10.2); Carbon Dioxide 24 mmol/L (22-29); Chloride 103 mmol/L (98-107); Glomerular Filtration Rate 71.3 mL/min (90-130); Glucose 155 mg/dL (74-106); Osmolality Calculated 285 mOsm/kg (285-295); Potassium 3.6 mmol/L (3.5-5.1); Sodium 138 mmol/L (136-145)
[2019-05-18] MEDS: pantoprazole DR 40 mg Tablet PO (08:54)
[2019-05-18] MEDS: metoprolol tartrate 50 mg Tablet PO (08:54)
[2019-05-18] MEDS: loratadine 10 mg Tablet PO (08:54)
--- NOTE | 2019-05-18 08:54 | P.PN_ITS ---
Subjective Subjective: Interval history: No acute events overnight. Patient is post EGD and colonoscopy from yesterday. Patient would most likely go for laparoscopic surgery today. Denies of having any nausea, vomiting, dehydration, dizziness, palpitations, headache, chest pain. Medications: Reviewed: Yes Vitals/I&O/Wt Last Vital Signs Temp 98.7 F 05/18/19 07:45 Pulse 63 05/18/19 07:45 Resp 18 05/18/19 07:45 BP 103/65 05/18/19 07:45 Pulse Ox 95 05/18/19 07:45 05/17/19 05/18/19 05/18/19 22:59 06:59 14:59 Intake Total 1200 / 2570.417 Balance 1200 / 2570.417 Weight last 48 hrs Weight 86.693 kg Weight 90.293 kg Physical Exam Narrative: EXAM NARRATIVE: General: No acute distress, AO x3 HEENT: PERRLA, pupils bilaterally equal and reactive, pallor Chest: Normal vesicular breath sounds, no added sounds, equal good air entry bilaterally CVS: S1-S2 regular, no murmurs, no tachycardia, no gallops, no rubs Abdomen: Obese, soft, nontender, no organomegaly, bowel sounds present Neuro: No focal deficits, no facial deformity, AO x3, power 5/5 in all limbs Data : 05/18/19 07:30 05/18/19 07:30 A&P Assessment and plan (1) Anemia: Status: Acute Qualifiers: Anemia type: other cause Other causes of anemia: chronic disease, other Qualified Code(s): D63.8 - Anemia in other chronic diseases classified elsewhere Code(s): D64.9 - Anemia, unspecified (2) Diabetes: Status: Acute Qualifiers: Diabetes mellitus complication status: with hyperglycemia Diabetes 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 middle or intermediate 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 insulin use: without middle or intermediate 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 use Diabetes mellitus type: type 2 Qualified Code(s): E11.65 - Type 2 diabetes mellitus with hyperglycemia Code(s): E11.9 - Type 2 diabetes mellitus without complications (3) Left leg DVT: Status: Acute Qualifiers: Affected thrombotic vein of extremity: unspecified vein of extremity Chronicity: chronic Qualified Code(s): I82.502 - Chronic embolism and thrombosis of unspecified deep veins of left lower extremity Code(s): I82.402 - Acute embolism and thrombosis of unspecified deep veins of left lower extremity (4) HTN (hypertension): Status: Acute Qualifiers: Hypertension type: essential hypertension Qualified Code(s): I10 - Essential (primary) hypertension Code(s): I10 - Essential (primary) hypertension Additional A&P Information Anemia: Lower GI bleed: Hemoglobin continues to decline. Patient is post transfusion with 2 units of [place] BC. Patient has history of colon cancer in past requiring hemicolectomy. Patient is post EGD and colonoscopy yesterday and colonoscopy suggestive of colon cancer. Patient most likely will go to the OR today for further surgery. We will transfuse her 1 unit PRBC for optimization for surgery. Continue with Protonix daily as EGD is normal.. Surgical recommendations appreciated. We will continue to hold Eliquis for now. Type 2 diabetes mellitus: Blood sugar okay controlled. Continue Lantus and moderate insulin sliding scale. Hypertension: Blood pressure under control. Continue with home dose of Lopressor but will hold off on hydrochlorothiazide for now given the possible GI bleed. History of DVT: Patient is on Eliquis for a DVT 5 years ago. We will plan to hold off Eliquis for at least 14 days on discharge. Doppler negative for DVT. Protonix daily for GI prophylaxis. No pharmacological DVT prophylaxis due to anemia and GI bleed. Will put patient on SCDs as Dopplers are negative for any DVT. Case management consult: For home health services postop and new PCP. Dispo: home Code status: FULL code Attestations Medical Necessity Statement*: Needs continued hospitalization for lower GI b leed and colon cancer. Time Spent in Patient Care: 16 - 35 minutes Coding Level of Care Code Acute Home Health Care Case Manager for [facility] Fwd Diagnoses Anemia D63.8 Anemia type: other cause Other causes of anemia: chronic disease, other Diabetes E11.65 Diabetes mellitus complication status: with hyperglycemia Diabetes mellitus middle or intermediate 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 insulin use: without middle or intermediate 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 use Diabetes mellitus type: type 2 Left leg DVT I82.502 Affected thrombotic vein of extremity: unspecified vein of extremity Chronicity: chronic HTN (hypertension) I10 Hypertension type: essential hypertension
--- NOTE | 2019-05-18 09:29 | PC.SOCIAL ---
IMM Update Pg 2 of IMM given and explained to patient who voiced understanding. Copy provided to patient.
--- NOTE | 2019-05-18 09:59 | P.ANES_ITS ---
Pre-Anesthetic Assessment Pre-Anesthetic Assessment: Height/Weight: Height 1.65 m Weight 86.693 kg Temp Pulse Resp BP Pulse Ox 98.7 F 63 18 103/65 95 05/18/19 07:45 05/18/19 07:45 05/18/19 07:45 05/18/19 07:45 05/18/19 07:45 Preop Diagnosis: Heme positive stool, anemia, history of gastritis, history of colon cancer Proposed Procedure: Operation Date: 05/17/19 10:30 Proposed Procedures p EGD/COLON(Not Applicable) - David Bergman MD s Colonoscopy(Not Applicable) - David Bergman MD Operation Date: 05/18/19 13:00 Proposed Procedures p Exploratory Laparotomy(Not Applicable) - David Bergman MD s partial colectomy(Not Applicable) - David Bergman MD Last intake: Intake Last Liquid Date 05/17/19 Last Liquid Time 23:55 Last Solid Date 05/17/19 Last Solid Time 23:55 Last Intake: 23:00 Exam: Pre-Anes Outpt Exam: alert, oriented x 3, clear to auscultation bilaterally and regular rate & rhythm Airway: Submandibular: WNL Cervical ROM: WNL MP: 1 CV/HEM: CV/HEM: Anemia, DVT and HTN Comments: stress test '00 negative, 2 blocks/2FOS without Angina/WHITNEY DVT '15, on anticoagulant, off 1 week GI: GI: GERD Comments: h/o colon CA protonix controls GERD Metabolic: Metabolic: DM Comments: rx'd x 5 days Anesthetic Plan: ASA status: III Anesthesia: General Meds/Allergies Current Medications: Current Medications Generic Name Dose Route Start Last Admin Trade Name Freq PRN Reason Stop Dose Admin Acetaminophen 325 - 650 mg 05/17/19 21:55 05/17/19 22:43 Tylenol PO 650 mg Q4H PRN Administration MILD PAIN OR INCR EASE TEMP Insulin Aspart 0 unit 05/17/19 18:00 05/18/19 07:19 Novolog SUBCUT Not Given WM&BEDTIME DIEGO Protocol Insulin Glargine 14 unit 05/17/19 21:00 05/17/19 22:42 Lantus SUBCUT 14 unit BEDTIME DIEGO Administration Loratadine 10 mg 05/18/19 09:00 05/18/19 08:54 Claritin PO 10 mg DAILY DIEGO Administration Metoprolol Tartrat e 50 mg 05/17/19 18:00 05/18/19 08:54 Lopressor PO 50 mg BID DIEGO Administration Ondansetron HCl 4 mg 05/17/19 16:51 05/17/19 17:13 Zofran IVP 4 mg Q6H PRN Administration NAUSEA AND VOMITI NG Pantoprazole Sodiu m 40 mg 05/18/19 09:00 05/18/19 08:54 Protonix PO 40 mg DAILY DIEGO Administration PFSH Anesthesia PFSH: Family History Father Dementia Brother Cancer colon cancer Social History Smoking and tobacco status: never smoked Alcohol intake: never Substance/Drug Use: never Household members: spouse Housing: House Data Anesthesia CBC & Chem 7: 05/18/19 07:30 05/18/19 07:30 Other Labs: Laboratory Results - last 48 hr 05/16/19 05/16/19 05/16/19 11:16 16:35 21:10 WBC RBC Hgb Hct MCV MCH MCHC RDW Plt Count MPV Neut % (Auto) Lymph % (Auto) [place] % (Auto) Eos % (Auto) Baso % (Auto) Neut # (Auto) Lymph # (Auto) [place] # (Auto) Eos # (Auto) Baso # (Auto) Nucleated RBC % (auto) Nucleated RBCs # Sodium Potassium Chloride Carbon Dioxide Anion Gap BUN Creatinine GFR Calculation Glucose POC Glucose 204 282 219 Calculated Osmolality Calcium Total Bilirubin AST ALT Alkaline Phosphatase Total Protein Albumin Globulin Carcinoembryonic Ag Blood Type Antibody Screen Crossmatch 05/17/19 05/17/19 05/17/19 03:45 03:45 06:44 WBC 10.1 H RBC 3.23 L Hgb 7.9 L Hct 25.7 L MCV 79.6 L MCH 24.5 L MCHC 30.7 RDW 15.2 H Plt Count 199 MPV 10.9 H Neut % (Auto) 51.5 Lymph % (Auto) 34.1 [place] % (Auto) 9.6 Eos % (Auto) 3.6 Baso % (Auto) 0.3 Neut # (Auto) 5.2 Lymph # (Auto) 3.5 [place] # (Auto) 1.0 H Eos # (Auto) 0.4 Baso # (Auto) 0.0 Nucleated RBC % (auto) 0 Nucleated RBCs # 0.0 Sodium 136 Potassium 2.7 L* D Chloride 97 L Carbon Dioxide 25 Anion Gap 16.7 BUN 13 Creatinine 0.7 GFR Calculation 83.2 L Glucose 141 H POC Glucose 158 Calculated Osmolality Calcium 9.2 Total Bilirubin 0.4 AST 18 ALT 12 Alkaline Phosphatase 44 Total Protein 5.5 L Albumin 3.0 L Globulin 2.5 Carcinoembryonic Ag Blood Type Antibody Screen Crossmatch 05/17/19 05/17/19 05/17/19 13:05 14:09 16:46 WBC RBC Hgb Hct MCV MCH MCHC RDW Plt Count MPV Neut % (Auto) Lymph % (Auto) [place] % (Auto) Eos % (Auto) Baso % (Auto) Neut # (Auto) Lymph # (Auto) [place] # (Auto) Eos # (Auto) Baso # (Auto) Nucleated RBC % (auto) Nucleated RBCs # Sodium Potassium Chloride Carbon Dioxide Anion Gap BUN Creatinine GFR Calculation Glucose POC Glucose 220 243 Calculated Osmolality Calcium Total Bilirubin AST ALT Alkaline Phosphatase Total Protein Albumin Globulin Carcinoembryonic Ag 3.2 Blood Type Antibody Screen Crossmatch 05/17/19 05/18/19 05/18/19 21:22 06:39 07:30 WBC 7.9 RBC 3.18 L Hgb 7.7 L Hct 26.4 L MCV 83.0 MCH 24.2 L MCHC 29.2 L RDW 15.5 H Plt Count 204 MPV 10.8 H Neut % (Auto) 58.4 Lymph % (Auto) 27.9 [place] % (Auto) 9.6 Eos % (Auto) 2.8 Baso % (Auto) 0.5 Neut # (Auto) 4.6 Lymph # (Auto) 2.2 [place] # (Auto) 0.8 Eos # (Auto) 0.2 Baso # (Auto) 0.0 Nucleated RBC % (auto) 0 Nucleated RBCs # 0.0 Sodium Potassium Chloride Carbon Dioxide Anion Gap BUN Creatinine GFR Calculation Glucose POC Glucose 127 137 Calculated Osmolality Calcium Total Bilirubin AST ALT Alkaline Phosphatase Total Protein Albumin Globulin Carcinoembryonic Ag Blood Type Antibody Screen Crossmatch 05/18/19 05/18/19 07:30 07:30 WBC RBC Hgb Hct MCV MCH MCHC RDW Plt Count MPV Neut % (Auto) Lymph % (Auto) [place] % (Auto) Eos % (Auto) Baso % (Auto) Neut # (Auto) Lymph # (Auto) [place] # (Auto) Eos # (Auto) Baso # (Auto) Nucleated RBC % (auto) Nucleated RBCs # Sodium 138 Potassium 3.6 Chloride 103 Carbon Dioxide 24 Anion Gap 14.6 BUN 10 Creatinine 0.8 GFR Calculation 71.3 L Glucose 155 H POC Glucose Calculated Osmolality 285 Calcium 9.1 Total Bilirubin AST ALT Alkaline Phosphatase Total Protein Albumin Globulin Carcinoembryonic Ag Blood Type O Positive Antibody Screen Negative Crossmatch See Detail Cardiac Studies: No Data to Display
[2019-05-18 11:48] LABS: Glucose Point of Care 187 mg/dL (70-110)
--- NOTE | 2019-05-18 12:25 | PC.NURSE ---
Pt off of unit at this time to OR. Self transferred from bed to [facility]. 1 unit of PRBC transfusing at this time. No reactions noted. Pt verbalized understanding to notify staff of potential reactions.
[2019-05-18] MEDS: sodium chloride 0.9% 1,000 ML 30 ML IV (13:22)
[2019-05-18] MEDS: metroNIDAZOLE IV 500 MG/100 ML PREMIX 100 MG IV ×2 (14:15→22:34)
--- NOTE | 2019-05-18 16:38 | PM.OP ---
Operative Report Date of procedure: 05/18/19 Pre-op Diagnosis: 1. Metachronous colon cancer near the splenic flexure. 2. Incisional hernia. Post-op diagnosis: same (With extensive intra-abdominal adhesions.) Procedure Done: 1. Exploratory laparotomy with partial colectomy and anastomosis. 2. Mobilization of splenic flexure. 3. Incidental repair of incisional hernia. Specimens removed/disposition: Terminal ileum/ileocolic anastomosis/transverse colon including tumor at splenic flexure. Surgeon: David Bergman Anesthesia: General Estimated blood loss (mL): 300 Complications: None. Condition: stable Disposition: PACU Procedure: The patient was brought to the operating room and was placed in a supine position on the operating room table. General endotracheal anesthesia was induced. A Lynch catheter was inserted by nursing. The abdomen was prepped and draped in a sterile fashion. A midline incision was carried out from the epigastrium down to a level just below the umbilicus. Cautery was used to divide the subcutaneous tissue and midline fascia and the peritoneal cavity was entered. The patient had an obvious hernia just adjacent to and below the umbilical level. The incision was carried out right through the defect. The hernia sac was eventually completely excised and revealed a defect measuring perhaps 4 to 5 cm in diameter. The fascial edges were actually in very good condition and there appeared to be enough laxity that the hernia defect could be brought back together without any undue tension at the close of the procedure. The patient had extensive intra-abdominal adhesions. The fascia was initially elevated on either side with retraction and adhesions were systematically taken down. Eventually the transverse colon could be fully identified and it appeared that the anastomosis was actually quite high in the right upper quadrant. The plan was to resect from the terminal ileum to the colon past the area of the metachronous tumor. The ileocolic anastomosis was farther over onto the right side than I anticipated, and was extensively adhesed to the undersurface of the liver and the abdominal sidewall, but eventually was freed up. Dissection was carried out over to the splenic flexure where the inking could be seen from the colonoscopy the previous day. The tumor was also palpable at the site. The splenic flexure was eventually completely mobilized by incising all of the attachments and bringing the colon medially. The distal small bowel was caught up in a lot of adhesions, as well. These were all systematically taken down, as the terminal ileum entering the proximal transverse colon appeared to be somewhat narrow caliber, and I was worried about a partial ongoing partial obstructive process proximally. After all of the small bowel had been freed it became apparent that the patient had had a previous small bowel anastomosis about a foot proximal to the ileocolic anastomosis. The intervening bowel was somewhat fibrotic and so the decision was made to actually divide the small intestine well proximal to the ileocolic anastomosis, including the more proximal anastomosis as well. This was accomplished with a XIOMARA 55 stapler. The colon was then also divided using the same instrument distal to the splenic flexure where the palpable tumor had been found. The intervening mesentery was divided using the buoyant energy device. The specimen was removed. The abdomen was irrigated with a large amount of saline. Palpation around the remainder of the abdomen revealed some scattered adhesions which were fully taken down so that the small bowel was completely freed. Attention was then directed towards the anastomosis. The small bowel and colon were laid to each other and were held together with a line of stay sutures of 3-0 Vicryl. An enterotomy was made on either limb of bowel with cautery and then an arm of a XIOMARA-75 stapler was passed down either limb of bowel and was then fired, creating a common opening between the 2 limbs. The staple lines were transposed and the common opening on the end was closed using a XIOMARA-75 stapler. Some stay sutures of 3-0 Vicryl were placed at the proximal end of the staple line between the 2 limbs to take tension off of the anastomosis. The anastomosis was situated just distal to the previous splenic flexure, was palpably patent and all of the bowel appeared to be fully viable. A final round of irrigation was then carried out. The midline fascia was closed using a running looped suture of #1 PDS, closing the incisional hernia defect in the process. Some internal retention sutures of #1 PDS were also used closure. The subcutaneous tissue was irrigated. Some Experel was injected into the musculature and subcutaneous tissue for postoperative anesthesia and the skin was finally approximated using skin siobhan. A sterile dressing was placed over the wound and the patient was taken to the recovery area in stable condition postoperatively.
[2019-05-18] MEDS: fentaNYL 50 mcg/mL INJ 2mL IVP (16:55)
--- NOTE | 2019-05-18 17:15 | SUR.PHASEI ---
PT SLEEPS IF NOT DISTURBED , PT AWAKES TO VOICE, C/O OF FEELING(HOT) COVERS REMOVED VSS PT SAT ON 3LNC 99% NO FAMILY IN WAITING ROOM.
[2019-05-18] MEDS: ondansetron 2 mg/ML SDV 2 mL 4 MG IVP ×2 (17:20→17:56)
--- NOTE | 2019-05-18 17:42 | PC.NURSE ---
Pt arrived back to unit from PACU. Dressing to midline abd clean, dry, and intact. No bowel sounds noted at this time. Spouse at bedside.
[2019-05-18] MEDS: ketorolac 30 mg/mL INJ 15 MG IVP ×2 (17:55→23:41)
[2019-05-18] MEDS: famotidine 20 mg/2 mL INJ IVP (17:56)
[2019-05-18] MEDS: morphine 4 mg/mL SDV 1 mL IVP ×2 (18:05→22:09)
[2019-05-18] MEDS: ceFAZolin 1,000 MG in sodium chloride 0.9% (plus) 50 ML 100 MG IV (21:02)
[2019-05-18 21:38] LABS: Glucose Point of Care 324 mg/dL (70-110)
[2019-05-18] MEDS: sodium chloride 0.9% 1,000 ML 100 ML IV (22:33)
[2019-05-19] VITALS (16 sets, daily range): BP systolic 94–128; BP diastolic 55–67; PULSE 65–97; RESP 17–20; TEMP 36.5–37.5; O2SAT 96–98
[2019-05-19] MEDS: famotidine 20 mg/2 mL INJ IVP ×2 (05:32→18:03)
[2019-05-19] MEDS: heparin 5,000 unit/mL INJ 1 mL 5000 UNIT SUBCUT ×2 (05:34→18:03)
[2019-05-19] MEDS: ceFAZolin 1,000 MG in sodium chloride 0.9% (plus) 50 ML 100 MG IV (05:35)
[2019-05-19 05:55] LABS: Basophils % 0.1 %; Hematocrit 26.4 % (37.0-47.0); Hemoglobin 7.6 g/dL (11.5-15.3); Lymphocytes # 0.8 10^3/uL (0.8-4.8); Lymphocytes % 5.3 %; Mean Corpuscular HGB Conc 28.8 g/dL (30.0-36.0); Mean Corpuscular Hemoglobin 25.6 pg (28.0-34.0); Mean Corpuscular Volume 88.9 fL (81-99); Monocytes # 1.2 10^3/uL (0.2-0.9); Neutrophils # 12.4 10^3/uL (1.8-7.7); Nucleated Red Blood Cells % 0 %; Platelet Count 189 10^3/cmm (130-400); Red Blood Count 2.97 10^6/uL (4.1-5.3); Red Cell Distribution Width 15.8 % (12.1-15.1); White Blood Count 14.5 10^3/uL (4.0-10.0)
[2019-05-19 06:10] LABS: Anion Gap 18.1 (5-19); Blood Urea Nitrogen 11 mg/dL (8-23); Calcium 7.4 mg/dL (8.5-10.5); Carbon Dioxide 18 mmol/L (22-29); Chloride 111 mmol/L (98-107); Glomerular Filtration Rate 55.1 mL/min (90-130); Glucose 288 mg/dL (74-106); Osmolality Calculated 303 mOsm/kg (285-295); Potassium 4.1 mmol/L (3.5-5.1); Sodium 143 mmol/L (136-145)
[2019-05-19] MEDS: metroNIDAZOLE IV 500 MG/100 ML PREMIX 100 MG IV (06:16)
[2019-05-19] MEDS: ondansetron 2 mg/ML SDV 2 mL 4 MG IVP (06:22)
[2019-05-19 06:43] LABS: Glucose Point of Care 256 mg/dL (70-110)
--- NOTE | 2019-05-19 08:56 | PM.PN ---
Subjective Subjective: Interval history: Last 24 hours patient has been to the OR for exploratory laparotomy with partial colectomy and anastomosis, mobilization of splenic flexure and repair of incisional hernia. EBL was approximately 300 cc. Postop patient has remained hemodynamically stable denies of having any nausea, vomiting. States her abdominal pain is mildly controlled. States she is feeling weak and is having multiple episodes of bilious bowel movements. She states she thinks she is passing flatus as well. Medications: Reviewed: Yes Vitals/I&O/Wt Last Vital Signs Temp 98.2 F 05/19/19 07:34 Pulse 80 05/19/19 07:34 Resp 18 05/19/19 07:34 BP 106/61 05/19/19 07:34 Pulse Ox 98 05/19/19 07:34 05/18/19 05/19/19 05/19/19 22:59 06:59 14:59 Intake Total 830 / 980 100 / 1080 Output Total 400 / 400 750 / 1150 Balance 430 / 580 -650 / -70 Weight last 48 hrs Weight 94.092 kg Weight 86.693 kg Physical Exam Narrative: EXAM NARRATIVE: General: No acute distress, AO x3 HEENT: PERRLA, pupils bilaterally equal and reactive, pallor Chest: Normal vesicular breath sounds, no added sounds, equal good air entry bilaterally CVS: S1-S2 regular, no murmurs, no tachycardia, no gallops, no rubs Abdomen: Obese, soft, dressing intact, sluggish bowel movements present. Neuro: No focal deficits, no facial deformity, AO x3, power 5/5 in all limbs Urinary Catheter Management^: Lynch: Cath Placed During This Visit: no Data : 05/19/19 04:47 05/19/19 04:47 A&P Assessment and plan (1) Anemia: Status: Acute Qualifiers: Anemia type: other cause Other causes of anemia: chronic disease, other Qualified Code(s): D63.8 - Anemia in other chronic diseases classified elsewhere Code(s): D64.9 - Anemia, unspecified (2) Diabetes: Status: Acute Qualifiers: Diabetes mellitus complication status: with hyperglycemia Diabetes mellitus middle or intermediate 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 insulin use: without middle or intermediate 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 use Diabetes mellitus type: type 2 Qualified Code(s): E11.65 - Type 2 diabetes mellitus with hyperglycemia Code(s): E11.9 - Type 2 diabetes mellitus without complications (3) Left leg DVT: Status: Acute Qualifiers: Affected thrombotic vein of extremity: unspecified vein of extremity Chronicity: chronic Qualified Code(s): I82.502 - Chronic embolism and thrombosis of unspecified deep veins of left lower extremity Code(s): I82.402 - Acute embolism and thrombosis of unspecified deep veins of left lower extremity (4) HTN (hypertension): Status: Acute Qualifiers: Hypertension type: essential hypertension Qualified Code(s): I10 - Essential (primary) hypertension Code(s): I10 - Essential (primary) hypertension Additional A&P Information 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 Pain well controlled. Continue with Toradol and morphine as ordered. We will try to avoid oversedation. Surgical recommendations appreciated. Incentive spirometry. DuoNebs every 6 hourly. Diarrhea: Continue with as ordered Lomotil. Anemia: Lower GI bleed: Postop since yesterday. Overall patient has received 3 units of PRBC. Yesterday during the OR apparently patient received 1 more unit for the hemoglobin this morning is still 7.6. We will transfuse 1 more unit of PRBC and check H&H in evening. C/w famotidine post OP. We will continue to hold Eliquis for now. Type 2 diabetes mellitus: Blood sugar okay controlled. Continue Lantus and moderate insulin sliding scale. Hypertension: Blood pressure under control. Continue with home dose of Lopressor but will hold off on hydrochlorothiazide for now given the possible GI bleed. History of DVT: Patient is on Eliquis for a DVT 5 years ago. We will plan to hold off Eliquis for at least 14 days on discharge. Doppler negative for DVT. Famotidine for GI prophylaxis. No pharmacological DVT prophylaxis due to anemia and GI bleed. Will put patient on SCDs as Dopplers are negative for any DVT. Case management consult: For home health services postop and new PCP. Dispo: home Code status: FULL code Attestations Medical Necessity Statement*: Needs further hospitalization for postoperative care for cancer of descending colon and anemia. Time Spent in Patient Care: 16 - 35 minutes Coding Level of Care Code Acute Model Maker Plaster for [facility] Diagnoses Anemia D63.8 Anemia type: other cause Other causes of anemia: chronic disease, other Diabetes E11.65 Diabetes mellitus complication status: with hyperglycemia Diabetes mellitus correction insulin use: without correction use Diabetes mellitus type: type 2 Left leg DVT I82.502 Affected thrombotic vein of extremity: unspecified vein of extremity Chronicity: chronic HTN (hypertension) I10 Hypertension type: essential hypertension
--- NOTE | 2019-05-19 09:29 | PM.PN ---
Subjective Subjective: Interval history: The patient is sore following her surgery yesterday, but says she otherwise seems to be doing fairly well. She says she is already having loose bilious stool. She says this happened to her after her last colon operation and she had to get on Lomotil for a while, even at home. She was eventually able to wean herself off. Vitals/I&O/Wt Last Vital Signs Temp 98.2 F 05/19/19 07:34 Pulse 80 05/19/19 07:34 Resp 18 05/19/19 07:34 BP 106/61 05/19/19 07:34 Pulse Ox 98 05/19/19 07:34 05/18/19 05/19/19 05/19/19 22:59 06:59 14:59 Intake Total 830 / 980 100 / 1080 Output Total 400 / 400 750 / 1150 Balance 430 / 580 -650 / -70 Weight last 48 hrs Weight 207 lb 7 oz Weight 191 lb 2 oz Physical Exam Narrative: EXAM NARRATIVE: Dressing is intact. The patient is having some loose stool that is bilious in color. Urinary Catheter Management^: Lynch: Cath Placed During This Visit: no Data : 05/19/19 04:47 05/19/19 04:47 A&P Assessment and plan (1) Cancer of descending colon: Status post partial colectomy with reanastomosis on 05/18/2019 for metachronous colon cancer. I am going to initiate Lomotil since the patient is already having loose stool. Until she has a little bit more control of her stool is going to be difficult to get her up and move her around. Transfusion today. Status: Acute Code(s): C18.6 - Malignant neoplasm of descending colon Attestations Medical Necessity Statement*: See admitting service's notation. 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
[2019-05-19] MEDS: ketorolac 30 mg/mL INJ 15 MG IVP ×4 (09:34→23:59)
[2019-05-19] MEDS: loratadine 10 mg Tablet PO (09:35)
[2019-05-19] MEDS: metoprolol tartrate 25 mg Tablet PO ×2 (09:40→18:05)
[2019-05-19] MEDS: diphenoxylate/atropine Tablet 1 TAB PO ×2 (09:47→16:08)
[2019-05-19] MEDS: sodium chloride 0.9% 1,000 ML 100 ML IV ×2 (09:50→19:39)
[2019-05-19 11:56] LABS: Glucose Point of Care 228 mg/dL (70-110)
[2019-05-19] MEDS: levalbuterol 0.63 mg/3 mL Neb INHALATION (14:05)
[2019-05-19] MEDS: pantoprazole 40 mg SDV IVP (16:07)
[2019-05-19 17:16] LABS: Glucose Point of Care 191 mg/dL (70-110)
[2019-05-19 17:55] LABS: Hematocrit 26.8 % (37.0-47.0); Hemoglobin 8.1 g/dL (11.5-15.3)
[2019-05-19] MEDS: ipratropium-albuterol 3 mL Neb INHALATION (20:27)
[2019-05-19 20:55] LABS: Glucose Point of Care 161 mg/dL (70-110)
[2019-05-20] VITALS (23 sets, daily range): BP systolic 102–136; BP diastolic 60–82; PULSE 66–93; RESP 16–22; TEMP 36.8–38.1; O2SAT 92–99
[2019-05-20] MEDS: sodium chloride 0.9% 1,000 ML 100 ML IV (05:37)
[2019-05-20] MEDS: heparin 5,000 unit/mL INJ 1 mL 5000 UNIT SUBCUT (05:48)
[2019-05-20] MEDS: famotidine 20 mg/2 mL INJ IVP (05:48)
[2019-05-20] MEDS: ketorolac 30 mg/mL INJ 15 MG IVP (05:48)
[2019-05-20 06:23] LABS: Basophils % 0.2 %; Eosinophils # 0.1 10^3/uL (0.0-0.8); Hemoglobin 7.1 g/dL (11.5-15.3); Lymphocytes # 1.4 10^3/uL (0.8-4.8); Lymphocytes % 11.9 %; Mean Corpuscular HGB Conc 29.6 g/dL (30.0-36.0); Mean Corpuscular Hemoglobin 25.4 pg (28.0-34.0); Mean Corpuscular Volume 85.7 fL (81-99); Mean Platelet Volume 11.3 fL (7.4-10.4); Monocytes # 0.8 10^3/uL (0.2-0.9); Neutrophils # 9.4 10^3/uL (1.8-7.7); Neutrophils % 79.3 %; Nucleated Red Blood Cells % 0 %; Platelet Count 177 10^3/cmm (130-400); Red Cell Distribution Width 16.5 % (12.1-15.1); White Blood Count 11.8 10^3/uL (4.0-10.0)
[2019-05-20 06:39] LABS: Anion Gap 16.3 (5-19); Blood Urea Nitrogen 9 mg/dL (8-23); Calcium 7.2 mg/dL (8.5-10.5); Carbon Dioxide 18 mmol/L (22-29); Chloride 112 mmol/L (98-107); Glomerular Filtration Rate 62.3 mL/min (90-130); Glucose 185 mg/dL (74-106); Osmolality Calculated 297 mOsm/kg (285-295); Potassium 3.3 mmol/L (3.5-5.1); Sodium 143 mmol/L (136-145)
[2019-05-20 06:46] LABS: Glucose Point of Care 194 mg/dL (70-110)
[2019-05-20] MEDS: ipratropium-albuterol 3 mL Neb INHALATION ×3 (08:09→20:13)
--- NOTE | 2019-05-20 08:34 | P.PN_ITS ---
Subjective Subjective: Interval history: The patient says she feels well. She has stopped having loose stool and is now just passing flatus. She is very anxious to get up and move around. Vitals/I&O/Wt Last Vital Signs Temp 100.6 F H 05/20/19 07:49 Pulse 86 05/20/19 08:13 Resp 18 05/20/19 08:09 BP 114/70 05/20/19 07:49 Pulse Ox 97 05/20/19 08:09 05/19/19 05/20/19 05/20/19 22:59 06:59 14:59 Intake Total 1101.667 / 2151.667 996.667 / 3148.334 Output Total 200 / 550 250 / 800 Balance 901.667 / 1601.667 746.667 / 2348.334 Weight last 48 hrs Weight 207 lb 14.4 oz Weight 207 lb 7 oz Physical Exam Narrative: EXAM NARRATIVE: Bowel sounds are present. The dressing still has a small area of saturation on the lower aspect but it has not changed since yesterday. Urinary Catheter Management^: Lynch: Cath Placed During This Visit: no Data : 05/20/19 05:43 05/20/19 05:43 A&P Assessment and plan (1) Cancer of descending colon: Status post partial colectomy with reanastomosis on 05/18/2019 for metachronous colon cancer. The patient's hemoglobin continues to drift. I am going to transfuse her again today and stop her Toradol and subcutaneous heparin. Continue SCDs. Discontinue Lynch catheter. Consistent carbohydrate clear liquid diet. Ambulate. Change Lomotil to as needed. Status: Acute Code(s): C18.6 - Malignant neoplasm of descending colon Attestations Medical Necessity Statement*: See admitting service's notation. Coding Level of Care Code Acute Dope Worker for [facility] Linda Diagnoses Cancer of descending colon C18.6
[2019-05-20] MEDS: metoprolol tartrate 25 mg Tablet PO ×2 (09:43→17:40)
[2019-05-20] MEDS: acetaminophen 325 mg Tablet PO ×2 (09:43→21:51)
[2019-05-20] MEDS: loratadine 10 mg Tablet PO (09:43)
[2019-05-20] MEDS: pantoprazole 40 mg SDV IVP ×2 (09:44→17:40)
[2019-05-20] MEDS: sodium chlor 0.9% + KCl 40 mEq 40 MEQ/1,000 ML BAG 100 MEQ IV ×2 (10:27→20:25)
[2019-05-20 12:17] LABS: Glucose Point of Care 213 mg/dL (70-110)
--- NOTE | 2019-05-20 12:29 | PC.SOCIAL ---
IMM Update Pg 2 of IMM given and explained to patient who voiced understanding. Copy provided to patient.
[2019-05-20 16:21] LABS: Glucose Point of Care 161 mg/dL (70-110)
--- NOTE | 2019-05-20 18:19 | PM.PN ---
Subjective Subjective: Interval history: She feels weak. Due to this she is feeling miserable, wishing for fast recovery. Having some pain at the wound superficially. Denies pain inside her belly. Says she tried to get up earlier today to walk to the bathroom. Vitals/I&O/Wt Last Vital Signs Temp 98.9 F 05/20/19 16:37 Pulse 77 05/20/19 16:37 Resp 22 H 05/20/19 16:37 BP 136/82 05/20/19 16:37 Pulse Ox 97 05/20/19 16:37 05/20/19 05/20/19 05/20/19 06:59 14:59 22:59 Intake Total 996.667 / 3148.334 690 / 690 350 / 1040 Output Total 250 / 800 400 / 400 Balance 746.667 / 2348.334 290 / 290 350 / 640 Weight last 48 hrs Weight 94.302 kg Weight 94.092 kg Physical Exam Const: COMMON NORMALS: no apparent distress and oriented x3 HENMT: COMMON NORMALS: oropharynx normal Neck/C-Spine: COMMON NORMALS: no JVD Resp: COMMON NORMALS: normal respiratory effort and clear to auscultation bilaterally AUSCULTATION: clear to auscultation bilaterally Cardio: COMMON NORMALS: no JVD, regular rhythm, S1 normal heart sound, S2 normal heart sound and no murmurs RHYTHM: regular rhythm HEART SOUNDS: S1 normal and S2 normal GI: COMMON NORMALS: soft to palpation and non-tender PALPATION: Yes soft OTHER: Abdominal wound covered by dressing. No surrounding erythema. No significant bleeding. Extremity: COMMON NORMALS: no joint enlargement and no pedal edema Neuro: COMMON NORMALS: oriented x3 and moves all extremities Skin: COMMON NORMALS: no rashes or lesions noted GENERAL SKIN EXAM: no rashes or lesions noted Data : 05/20/19 05:43 05/20/19 05:43 A&P Assessment and plan (1) Anemia: Receiving PRBC transfusion today due to persistent anemia, hemoglobin down to 7.2 this morning. Symptomatic with generalized weakness. Easy fatigability. We will recheck hemoglobin in the morning. Pharmacologic DVT prophylaxis was discontinued. So was Toradol. PPI increased to twice daily. Famotidine held. Status: Acute Qualifiers: Anemia type: other cause Other causes of anemia: chronic disease, other Qualified Code(s): D63.8 - Anemia in other chronic diseases classified elsewhere Code(s): D64.9 - Anemia, unspecified (2) Diabetes: Continue Lantus and sliding scale insulin. Status: Acute Qualifiers: Diabetes mellitus complication status: with hyperglycemia Diabetes mellitus residential insulin use: without adjunct faculty for medical terminology use Diabetes mellitus type: type 2 Qualified Code(s): E11.65 - Type 2 diabetes mellitus with hyperglycemia Code(s): E11.9 - Type 2 diabetes mellitus without complications (3) Left leg DVT: History of DVT 5 years ago. Previously on Eliquis. Plan was to hold off for 14 days. Subcutaneous heparin had to be discontinued due to persistent anemia. No DVT on Doppler ultrasound. Continue SCD. Status: Acute Qualifiers: Affected thrombotic vein of extremity: unspecified vein of extremity Chronicity: chronic Qualified Code(s): I82.502 - Chronic embolism and thrombosis of unspecified deep veins of left lower extremity Code(s): I82.402 - Acute embolism and thrombosis of unspecified deep veins of left lower extremity (4) HTN (hypertension): At goal. Status: Acute Qualifiers: Hypertension type: essential hypertension Qualified Code(s): I10 - Essential (primary) hypertension Code(s): I10 - Essential (primary) hypertension (5) Cancer of descending colon: Status post resection. Continue I-S. Mobilize. Transfuse for symptomatic anemia. Arrangements for home health service and PCP by discharge planning. Status: Acute Code(s): C18.6 - Malignant neoplasm of descending colon (6) Generalized weakness: Multifactorial, with symptomatic anemia, postoperative, with diarrhea. Receiving transfusion PRBC. Mobilize. Continue PT. C. difficile negative. Was started on Lomotil for diarrhea. Status: Acute Code(s): R53.1 - Weakness Additional A&P Information Diarrhea: Continue with as ordered Lomotil. Attestations Medical Necessity Statement*: Continue admission for postoperative management after colon resection due to colon cancer, symptomatic acute blood loss anemia. Coding Level of Care Code Acute Hypoid Gear Tester for [facility] Fwd Diagnoses Anemia D63.8 Anemia type: other cause Other causes of anemia: chronic disease, other Diabetes E11.65 Diabetes mellitus complication status: with hyperglycemia Diabetes mellitus adjunct faculty for medical terminology insulin use: without residential use Diabetes mellitus type: type 2 Left leg DVT I82.502 Affected thrombotic vein of extremity: unspecified vein of extremity Chronicity: chronic HTN (hypertension) I10 Hypertension type: essential hypertension Cancer of descending colon C18.6 Generalized weakness R53.1
[2019-05-20 20:48] LABS: Glucose Point of Care 130 mg/dL (70-110)
[2019-05-21] VITALS (13 sets, daily range): BP systolic 106–152; BP diastolic 65–77; PULSE 69–91; RESP 16–24; TEMP 36.7–37.8; O2SAT 93–99
[2019-05-21] MEDS: diphenoxylate/atropine Tablet 1 TAB PO (02:12)
[2019-05-21] MEDS: ipratropium-albuterol 3 mL Neb INHALATION ×3 (02:50→20:05)
[2019-05-21 05:54] LABS: Basophils % 0.4 %; Eosinophils # 0.2 10^3/uL (0.0-0.8); Eosinophils % 2.3 %; Hematocrit 32.3 % (37.0-47.0); Hemoglobin 8.7 g/dL (11.5-15.3); Lymphocytes % 13.6 %; Mean Corpuscular HGB Conc 26.9 g/dL (30.0-36.0); Mean Corpuscular Hemoglobin 25.7 pg (28.0-34.0); Mean Corpuscular Volume 95.6 fL (81-99); Mean Platelet Volume 12.3 fL (7.4-10.4); Monocytes # 0.4 10^3/uL (0.2-0.9); Monocytes % 5.7 %; Neutrophils # 5.7 10^3/uL (1.8-7.7); Neutrophils % 76.8 %; Nucleated Red Blood Cells % 0 %; Platelet Count 34 10^3/cmm (130-400); Red Blood Count 3.38 10^6/uL (4.1-5.3); Red Cell Distribution Width 16.7 % (12.1-15.1); White Blood Count 7.4 10^3/uL (4.0-10.0)
--- NOTE | 2019-05-21 06:00 | XRR_ITS ---
PROCEDURE INFORMATION: Exam: XR Chest, 1 View Exam date and time: 05/21/2019 7:54 AM Age: 68 years old Clinical indication: Patient HX: Hypoxia, PT denies HX of smoking, PT has HX of colon CA with colon surgery <6 months TECHNIQUE: Imaging protocol: XR of the chest Views: 1 view. COMPARISON: CR XR chest 1V portable [id number] 05/12/2019 7:39 PM FINDINGS: Lungs: Unremarkable. No consolidation. Pleural space: Unremarkable. No pleural effusion. No pneumothorax. Heart/Mediastinum: Heart size is similar. Vasculature: Tortuous thoracic aorta. Bones/joints: Osteopenia. XR/XR chest 1V portable [id number] IMPRESSION: 1. No acute cardiopulmonary process.
[2019-05-21 06:12] LABS: Anion Gap 19.3 (5-19); Blood Urea Nitrogen 4 mg/dL (8-23); Calcium 7.2 mg/dL (8.5-10.5); Chloride 112 mmol/L (98-107); Glomerular Filtration Rate 83.2 mL/min (90-130); Glucose 201 mg/dL (74-106); Magnesium 1.5 mg/dL (1.7-2.3); Osmolality Calculated 291 mOsm/kg (285-295); Potassium 4.3 mmol/L (3.5-5.1); Sodium 140 mmol/L (136-145)
[2019-05-21 06:26] LABS: Carbon Dioxide 13 mmol/L (22-29)
[2019-05-21] MEDS: sodium chlor 0.9% + KCl 40 mEq 40 MEQ/1,000 ML BAG 100 MEQ IV (06:33)
[2019-05-21 06:38] LABS: Glucose Point of Care 198 mg/dL (70-110)
[2019-05-21] MEDS: FUROsemide 10 mg/mL SDV 2mL 20 MG IVP (07:53)
[2019-05-21] MEDS: loratadine 10 mg Tablet PO (08:17)
[2019-05-21] MEDS: pantoprazole 40 mg SDV IVP ×2 (08:17→18:03)
[2019-05-21] MEDS: metoprolol tartrate 25 mg Tablet PO ×2 (08:17→18:43)
[2019-05-21] MEDS: magnesium sulfate premix 2 GM/50 ML PIGGYBACK IV (08:18)
--- NOTE | 2019-05-21 08:44 | PM.PN ---
Subjective Subjective: Interval history: The patient says she is feeling weak today. She did get up in a chair yesterday. She was mildly short of breath this morning and so nursing put some oxygen on her even though her oxygen saturations were apparently adequate without it. She did receive some Lasix and is diuresing currently. She continues to pass flatus. She has been taking clear liquids without any problem but says she does not have much of an appetite yet. She has been coughing a lot; she was up in the bathroom and said that she had some serous fluid saturate her abdominal dressing. Vitals/I&O/Wt Last Vital Signs Temp 98.0 F 05/21/19 08:00 Pulse 80 05/21/19 08:00 Resp 18 05/21/19 08:00 BP 120/72 05/21/19 08:00 Pulse Ox 96 05/21/19 08:00 05/20/19 05/21/19 05/21/19 22:59 06:59 14:59 Intake Total 1540.667 / 2230.667 1000 / 3230.667 Output Total 200 / 600 Balance 1340.667 / 2239.393 6648 / 2630.667 Weight last 48 hrs Weight 207 lb 14.4 oz Weight 207 lb 14.4 oz Physical Exam Narrative: EXAM NARRATIVE: The patient may have just a few rales in the bases but otherwise her lungs are clear.. The reinforced abdominal dressing was removed. The incision looks good. There are no obvious areas of separation, but she does have serosanguineous saturation of the underlying layers. A new dressing was applied. Urinary Catheter Management^: Lynch: Cath Placed During This Visit: yes Urethral Indwelling: No Data : 05/21/19 05:18 05/21/19 05:18 A&P Assessment and plan (1) Cancer of descending colon: Status post partial colectomy with reanastomosis on 05/18/2019 for metachronous colon cancer. Patient's hemoglobin looks better, but she does appear to be thrombocytopenic. Without any evidence of ongoing bleeding I would be okay watching this as long as it remains stable or improves, given her history of thrombosis. She is currently being diuresed. Continue to watch abdominal wound. I will advance her diet when her appetite returns. Status: Acute Code(s): C18.6 - Malignant neoplasm of descending colon Attestations Medical Necessity Statement*: See admitting service's notation. Coding Level of Care Code Acute Field Reimbursement Manager for [facility] Linda Diagnoses Cancer of descending colon C18.6
[2019-05-21 10:07] LABS: LAB Peripheral Smear Sent for Review
[2019-05-21 10:54] LABS: Glucose Point of Care 200 mg/dL (70-110)
--- NOTE | 2019-05-21 11:52 | P.PN_ITS ---
Subjective Subjective: Interval history: She was coughing overnight. Says that she was having cough several days prior to admission, although last night was much worse, keeping her up. Is not bringing up any phlegm. Did say that her symptoms got worse when she was laying down flat. Vitals/I&O/Wt Last Vital Signs Temp 98.6 F 05/21/19 11:25 Pulse 76 05/21/19 11:25 Resp 16 05/21/19 11:25 BP 106/65 05/21/19 11:25 Pulse Ox 96 05/21/19 11:25 05/20/19 05/21/19 05/21/19 22:59 06:59 14:59 Intake Total 1540.667 / 2230.667 1000 / 3230.667 480 / 480 Output Total 200 / 600 1050 / 1050 Balance 1340.667 / 8915.710 5158 / 2630.667 -570 / -570 Weight last 48 hrs Weight 94.302 kg Weight 94.302 kg Physical Exam Const: COMMON NORMALS: no apparent distress and oriented x3 HENMT: COMMON NORMALS: oropharynx normal Neck/C-Spine: COMMON NORMALS: no JVD Resp: COMMON NORMALS: normal respiratory effort and clear to auscultation bilaterally AUSCULTATION: clear to auscultation bilaterally Cardio: COMMON NORMALS: no JVD, regular rhythm, S1 normal heart sound, S2 normal heart sound and no murmurs RHYTHM: regular rhythm HEART SOUNDS: S1 normal and S2 normal GI: COMMON NORMALS: soft to palpation and non-tender PALPATION: Yes soft OTHER: Abdominal wound covered by dressing. No surrounding erythema. No significant bleeding. Extremity: COMMON NORMALS: no joint enlargement and no pedal edema Neuro: COMMON NORMALS: oriented x3 and moves all extremities Skin: COMMON NORMALS: no rashes or lesions noted GENERAL SKIN EXAM: no rashes or lesions noted Urinary Catheter Management^: Lynch: Cath Placed During This Visit: no Data : 05/21/19 05:18 05/21/19 05:18 A&P Assessment and plan (1) Anemia: Reassess CBC later this afternoon. SCD for DVT prophylaxis. Status: Acute Qualifiers: Anemia type: other cause Other causes of anemia: chronic disease, other Qualified Code(s): D63.8 - Anemia in other chronic diseases classified elsewhere Code(s): D64.9 - Anemia, unspecified (2) Hypoxia: Needing 2 L of oxygen by nasal cannula. Overnight bothered by significant cough. Says the cough is been ongoing including several days prior to admission. Is not bringing up any phlegm. Chest x-ray without pneumonia, but does appear to have congestive changes. She does report orthopnea symptoms with some worsening in her breathing when she lays down flat. Requested for a dose of IV Lasix this morning. Likely fluid overload secondary to. BC transfusion, IV fluids overnight. Hold further IVF. History of DVT and PE. No DVT noted on duplex ultrasound this admission. Has not been able to be resumed on Eliquis due to recurrent bleeding. IVC filter noted. Possibility of bronchitis which was present preadmission. Tessalon Perles. Continue breathing treatments as needed symptomatically. Oxygen support. Status: Acute Code(s): R09.02 - Hypoxemia (3) Thrombocytopenia: PLT down to 34 thousand this morning. No clear trigger. She is not in sepsis. No DARCY. Unclear if spurious result or dilutional effect with pRBC transfusion and IVF. We will repeat CBC for anemia, platelet level later this afternoon. Discussed with pharmacy, no clear medication that should be causing this. Delayed heparin induced thrombocytopenia may sometimes be considered, although this appears to occur on average around 9 days after heparin withdrawal. At this time probabili ty is low. She is also not candidate for current other anticoagulation given recurrent blood loss anemia. Request peripheral smear. Status: Acute Code(s): D69.6 - Thrombocytopenia, unspecified (4) Diabetes: Add Lantus. Continue sliding scale insulin. Status: Acute Qualifiers: Diabetes mellitus complication status: with hyperglycemia Diabetes mellitus termite control service representative insulin use: without termite control service representative use Diabetes mellitus type: type 2 Qualified Code(s): E11.65 - Type 2 diabetes mellitus with hyperglycemia Code(s): E11.9 - Type 2 diabetes mellitus without complications (5) Left leg DVT: History of DVT 5 years ago. Previously on Eliquis. Plan was to hold off for 14 days. Subcutaneous heparin had to be discontinued due to persistent anemia. No DVT on Doppler ultrasound. Continue SCD. Status: Acute Qualifiers: Affected thrombotic vein of extremity: unspecified vein of extremity Chronicity: chronic Qualified Code(s): I82.502 - Chronic embolism and thrombosis of unspecified deep veins of left lower extremity Code(s): I82.402 - Acute embolism and thrombosis of unspecified deep veins of left lower extremity (6) HTN (hypertension): At goal. Status: Acute Qualifiers: Hypertension type: essential hypertension Qualified Code(s): I10 - Essential (primary) hypertension Code(s): I10 - Essential (primary) hypertension (7) Cancer of descending colon: Status post resection. Continue I-S. Mobilize. Transfuse for symptomatic anemia. Arrangements for home health service and PCP by discharge planning. Status: Acute Code(s): C18.6 - Malignant neoplasm of descending colon (8) Generalized weakness: Multifactorial, with symptomatic anemia, postoperative, with diarrhea. Receiving transfusion PRBC. Mobilize. Continue PT. C. difficile negative. Was started on Lomotil for diarrhea. Status: Acute Code(s): R53.1 - Weakness Additional A&P Information Diarrhea: Continue with as ordered Lomotil. Attestations Medical Necessity Statement*: Continue admission for postoperative management after partial colectomy due to colon cancer. 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 [facility] Diagnoses Anemia D63.8 Anemia type: other cause Other causes of anemia: chronic disease, other Hypoxia R09.02 Thrombocytopenia D69.6 Diabetes E11.65 Diabetes mellitus complication status: with hyperglycemia Diabetes mellitus termite control service representative insulin use: without termite control service representative use Diabetes mellitus type: type 2 Left leg DVT I82.502 Affected thrombotic vein of extremity: unspecified vein of extremity Chronicity: chronic HTN (hypertension) I10 Hypertension type: essential hypertension Cancer of descending colon C18.6 Generalized weakness R53.1
--- NOTE | 2019-05-21 16:06 | PC.NURSE ---
The pacient was sleeping and the requested that we not disturb her to do vitals
[2019-05-21 16:39] LABS: Basophils % 0.3 %; Eosinophils # 0.2 10^3/uL (0.0-0.8); Eosinophils % 2.5 %; Hematocrit 29.7 % (37.0-47.0); Lymphocytes % 10.7 %; Mean Corpuscular Hemoglobin 25.4 pg (28.0-34.0); Mean Platelet Volume 10.1 fL (7.4-10.4); Monocytes # 0.6 10^3/uL (0.2-0.9); Monocytes % 6.9 %; Neutrophils # 7.1 10^3/uL (1.8-7.7); Neutrophils % 78.4 %; Nucleated Red Blood Cells % 0 %; Platelet Count 199 10^3/cmm (130-400); Red Blood Count 3.54 10^6/uL (4.1-5.3); Red Cell Distribution Width 16.2 % (12.1-15.1); White Blood Count 9.1 10^3/uL (4.0-10.0)
[2019-05-21 16:47] LABS: Mean Corpuscular Volume 83.9 fL (81-99)
[2019-05-21 16:48] LABS: Mean Corpuscular HGB Conc 30.3 g/dL (30.0-36.0)
[2019-05-21 17:02] LABS: Glucose Point of Care 126 mg/dL (70-110)
[2019-05-21] MEDS: acetaminophen 325 mg Tablet PO (20:46)
[2019-05-21 21:44] LABS: Glucose Point of Care 185 mg/dL (70-110)
[2019-05-21] MEDS: insulin glargine 100 units/1 mL 10 UNIT SUBCUT (21:50)
[2019-05-22] VITALS (14 sets, daily range): BP systolic 93–149; BP diastolic 51–84; PULSE 65–104; RESP 14–24; TEMP 36.6–39.1; O2SAT 95–99
[2019-05-22] MEDS: ipratropium-albuterol 3 mL Neb INHALATION ×4 (02:44→20:40)
[2019-05-22] MEDS: benzonatate 100 mg Capsule PO ×3 (03:34→22:07)
[2019-05-22 06:07] LABS: Basophils # 0.1 10^3/uL (0.0-0.1); Basophils % 0.6 %; Eosinophils # 0.3 10^3/uL (0.0-0.8); Eosinophils % 3.2 %; Hematocrit 35.3 % (37.0-47.0); Hemoglobin 10.1 g/dL (11.5-15.3); Lymphocytes # 0.7 10^3/uL (0.8-4.8); Lymphocytes % 7.5 %; Mean Corpuscular HGB Conc 28.6 g/dL (30.0-36.0); Mean Corpuscular Hemoglobin 26.2 pg (28.0-34.0); Mean Corpuscular Volume 91.7 fL (81-99); Mean Platelet Volume 10.3 fL (7.4-10.4); Monocytes # 0.7 10^3/uL (0.2-0.9); Monocytes % 8.3 %; Neutrophils # 7.1 10^3/uL (1.8-7.7); Neutrophils % 79.4 %; Nucleated Red Blood Cells % 0 %; Platelet Count 216 10^3/cmm (130-400); Red Blood Count 3.85 10^6/uL (4.1-5.3); Red Cell Distribution Width 16.8 % (12.1-15.1); White Blood Count 8.9 10^3/uL (4.0-10.0)
[2019-05-22 06:22] LABS: Anion Gap 18.6 (5-19); Blood Urea Nitrogen 6 mg/dL (8-23); Calcium 7.7 mg/dL (8.5-10.5); Carbon Dioxide 14 mmol/L (22-29); Chloride 106 mmol/L (98-107); Glomerular Filtration Rate 83.2 mL/min (90-130); Glucose 180 mg/dL (74-106); Osmolality Calculated 280 mOsm/kg (285-295); Potassium 3.6 mmol/L (3.5-5.1); Sodium 135 mmol/L (136-145)
[2019-05-22 06:45] LABS: Magnesium 1.8 mg/dL (1.7-2.3)
[2019-05-22 06:51] LABS: Glucose Point of Care 170 mg/dL (70-110)
[2019-05-22] MEDS: loratadine 10 mg Tablet PO (08:41)
[2019-05-22] MEDS: metoprolol tartrate 25 mg Tablet PO ×2 (08:41→18:24)
[2019-05-22] MEDS: magnesium sulfate premix 2 GM/50 ML PIGGYBACK IV (08:52)
--- NOTE | 2019-05-22 09:14 | PM.PN ---
Subjective Subjective: Interval history: The patient says she is feeling well. She still somewhat weak. She says she continues to pass flatus and some stool. She does also continue to have some serous drainage from her midline incision, but her appetite is improving and she would like some solid food. Vitals/I&O/Wt Last Vital Signs Temp 98.2 F 05/22/19 08:00 Pulse 80 05/22/19 08:39 Resp 16 05/22/19 08:36 BP 127/72 05/22/19 08:00 Pulse Ox 98 05/22/19 08:36 05/21/19 05/22/19 05/22/19 22:59 06:59 14:59 Intake Total 240 / 720 240 / 960 360 / 360 Output Total 350 / 1400 200 / 1600 100 / 100 Balance -110 / -680 40 / -640 260 / 260 Weight last 48 hrs Weight 220 lb 6.4 oz Weight 207 lb 14.4 oz Physical Exam Narrative: EXAM NARRATIVE: The incision remains well approximated. There is minimal serous saturation at the mid aspect of her dressing which was replaced. Bowel sounds are present. Urinary Catheter Management^: Lynch: Cath Placed During This Visit: no Data : 05/22/19 04:57 05/22/19 04:57 Other data: Colonoscopy biopsy final Diagnosis: Mid descending colon mass biopsy: Moderately differentiated invasive adenocarcinoma A&P Assessment and plan (1) Cancer of descending colon: Status post partial colectomy with reanastomosis on 05/18/2019 for metachronous colon cancer. Final surgical pathology still pending, but colonoscopy biopsy showed moderately differentiated adenocarcinoma as expected. Bowel function has returned. Consistent carbohydrate diet. Continue ambulation as able. Push incentive spirometry. Status: Acute Code(s): C18.6 - Malignant neoplasm of descending colon Attestations Medical Necessity Statement*: See admitting service's notation. 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
[2019-05-22 10:58] LABS: Glucose Point of Care 173 mg/dL (70-110)
--- NOTE | 2019-05-22 11:56 | PC.SOCIAL ---
Updated Pg 2 of IMM with patient and provided her with a copy. She verbalized understanding. Initialed, dated, and timed copy in chart.
[2019-05-22] MEDS: acetaminophen 325 mg Tablet PO (15:46)
[2019-05-22 17:10] LABS: Glucose Point of Care 191 mg/dL (70-110)
[2019-05-22] MEDS: famotidine 20 mg Tablet PO (18:24)
--- NOTE | 2019-05-22 19:12 | PC.NURSE ---
Introduction of staff and report received, aidet.
--- NOTE | 2019-05-22 19:46 | P.PN_ITS ---
Subjective Subjective: Interval history: She has been having discharge from her wound, yellowish in color, dripping down toward the bed between her thighs. Reports it also leaks out when she tries to stand up. Reports she has been forgetting to use her incentive spirometer. Overall is having some malaise. When asked about it does report some chills, upper respiratory congestion. She is blowing her nose multiple times during my visit. Vitals/I&O/Wt Last Vital Signs Temp 102.3 F H 05/22/19 15:36 Pulse 87 05/22/19 15:36 Resp 14 05/22/19 15:36 BP 149/83 05/22/19 15:36 Pulse Ox 97 05/22/19 15:36 05/22/19 05/22/19 05/22/19 06:59 14:59 22:59 Intake Total 240 / 960 480 / 480 360 / 840 Output Total 200 / 1600 300 / 300 Balance 40 / -640 180 / 180 360 / 540 Weight last 48 hrs Weight 99.972 kg Weight 94.302 kg Physical Exam Const: COMMON NORMALS: no apparent distress and oriented x3 HENMT: COMMON NORMALS: oropharynx normal Neck/C-Spine: COMMON NORMALS: no JVD Resp: COMMON NORMALS: normal respiratory effort and clear to auscultation bilaterally AUSCULTATION: clear to auscultation bilaterally Cardio: COMMON NORMALS: no JVD, regular rhythm, S1 normal heart sound, S2 normal heart sound and no murmurs RHYTHM: regular rhythm HEART SOUNDS: S1 normal and S2 normal GI: COMMON NORMALS: soft to palpation and non-tender PALPATION: Yes soft OTHER: Abdominal wound covered by dressing. No surrounding erythema. No significant bleeding. No discharge at time of my examination. Extremity: COMMON NORMALS: no joint enlargement and no pedal edema Neuro: COMMON NORMALS: oriented x3 and moves all extremities Skin: COMMON NORMALS: no rashes or lesions noted GENERAL SKIN EXAM: no rashes or lesions noted Data : 05/22/19 04:57 05/22/19 04:57 A&P Assessment and plan (1) Fever: This morning having some malaise, with upper respiratory congestion, blowing her nose multiple times during my visit, with low-grade temp. Early in the morning had one episode of diarrhea, but without recurrence. Later in the afternoon I see she is spiked a fever 102.3. I was not notified about this. Will request blood culture. I suspect she is having acute viral illness given her malaise, upper respiratory symptoms. Will request for rapid flu. Assess chest x-ray, UA. Status: Acute Code(s): R50.9 - Fever, unspecified (2) Anemia: Hemoglobin appears to be stabilizing. Still some saturation of dressing, with serous discharge, however, does not appear to have further bleeding. SCD for DVT prophylaxis. If remains stable, consider adding pharmacologic DVT prophylaxis. Status: Acute Qualifiers: Anemia type: other cause Other causes of anemia: chronic disease, other Qualified Code(s): D63.8 - Anemia in other chronic diseases classified elsewhere Code(s): D64.9 - Anemia, unspecified (3) Hypoxia: Weaned off oxygen. Chest x-ray unremarkable. Hypoxia was likely secondary to fluid overload after PRBC transfusion, IV fluids. Responded well to Lasix. IV fluids that were discontinued. History of DVT and PE. No DVT noted on duplex ultrasound this admission. Has not been able to be resumed on Eliquis due to recurrent bleeding. IVC filter noted. Possibility of bronchitis which was present preadmission. Tessalon Pearles. Continue breathing treatments as needed symptomatically. Oxygen support as needed. Status: Acute Code(s): R09.02 - Hypoxemia (4) Thrombocytopenia: PLT down to 34 thousand appears to have been a spurious result, subsequently with normal platelet levels. Probability of HIT was deemed low. Status: Acute Code(s): D69.6 - Thrombocytopenia, unspecified (5) Diabetes: Add Lantus. Continue sliding scale insulin. Status: Acute Qualifiers: Diabetes mellitus complication status: with hyperglycemia Diabetes mellitus fdc insulin use: without fdc use Diabetes mellitus type: type 2 Qualified Code(s): E11.65 - Type 2 diabetes mellitus with hyperglycemia Code(s): E11.9 - Type 2 diabetes mellitus without complications (6) Left leg DVT: History of DVT 5 years ago. Previously on Eliquis. Plan was to hold off for 14 days. Subcutaneous heparin had to be discontinued due to persistent anemia. No DVT on Doppler ultrasound. Continue SCD. Status: Acute Qualifiers: Affected thrombotic vein of extremity: unspecified vein of extremity Chronicity: chronic Qualified Code(s): I82.502 - Chronic embolism and thrombosis of unspecified deep veins of left lower extremity Code(s): I82.402 - Acute embolism and thrombosis of unspecified deep veins of left lower extremity (7) HTN (hypertension): At goal. 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 Continue I-S. Mobilize. Arrangements for home health service and PCP by discharge planning. Assessment of postoperative fever. Status: Acute Code(s): C18.6 - Malignant neoplasm of descending colon (9) Generalized weakness: Multifactorial, with symptomatic anemia, postoperative, with diarrhea. Receiving transfusion PRBC. Mobilize. Continue PT. C. difficile negative. Was started on Lomotil for diarrhea. Status: Acute Code(s): R53.1 - Weakness Additional A&P Information Diarrhea: 1 episode this morning, without recurrence. Attestations Medical Necessity Statement*: Continue admission for assessment and management following partial colectomy for colon cancer, assessment of postoperative fever. Coding Level of Care Code Acute Nutrition Assistant for [facility] Fwd Diagnoses Fever R50.9 Anemia D63.8 Anemia type: other cause Other causes of anemia: chronic disease, other Hypoxia R09.02 Thrombocytopenia D69.6 Diabetes E11.65 Diabetes mellitus complication status: with hyperglycemia Diabetes mellitus technician terminal and repeater insulin use: without technician terminal and repeater use Diabetes mellitus type: type 2 Left leg DVT I82.502 Affected thrombotic vein of extremity: unspecified vein of extremity Chronicity: chronic HTN (hypertension) I10 Hypertension type: essential hypertension Cancer of descending colon C18.6 Generalized weakness R53.1
--- NOTE | 2019-05-22 19:49 | XR_ITS ---
WS: [id number] Portable AP upright chest, 05/22/2019 Clinical Data: fever Comparison: Portable chest, 05/21/2019 Findings: No nodules, masses or effusions are seen. The heart is normal. The pulmonary vascularity is not increased. No pneumonia or pneumothorax is seen. The aortic arch and descending aorta are tortuo us. XR/XR chest 1V portable [id number] Impression: Atherosclerosis.
[2019-05-22 20:43] LABS: Influenza A by IFA Positive (Negative); Influenza B by IFA Negative (Negative)
[2019-05-22] MEDS: insulin glargine 100 units/1 mL 10 UNIT SUBCUT (22:04)
[2019-05-22 22:23] LABS: Glucose Point of Care 232 mg/dL (70-110)
[2019-05-23] VITALS (12 sets, daily range): BP systolic 117–148; BP diastolic 70–81; PULSE 64–84; RESP 16–20; TEMP 36.5–37.9; O2SAT 94–97
[2019-05-23 06:28] LABS: Basophils % 0.3 %; Eosinophils # 0.1 10^3/uL (0.0-0.8); Eosinophils % 1.5 %; Hematocrit 36.6 % (37.0-47.0); Hemoglobin 10.5 g/dL (11.5-15.3); Lymphocytes # 0.8 10^3/uL (0.8-4.8); Lymphocytes % 10.2 %; Mean Corpuscular HGB Conc 28.7 g/dL (30.0-36.0); Mean Corpuscular Hemoglobin 26.6 pg (28.0-34.0); Mean Corpuscular Volume 92.7 fL (81-99); Mean Platelet Volume 10.3 fL (7.4-10.4); Monocytes # 0.6 10^3/uL (0.2-0.9); Neutrophils # 6.2 10^3/uL (1.8-7.7); Neutrophils % 79.4 %; Nucleated Red Blood Cells % 0 %; Platelet Count 215 10^3/cmm (130-400); Red Blood Count 3.95 10^6/uL (4.1-5.3); Red Cell Distribution Width 17.1 % (12.1-15.1); White Blood Count 7.8 10^3/uL (4.0-10.0)
[2019-05-23 06:39] LABS: Glucose Point of Care 170 mg/dL (70-110)
--- NOTE | 2019-05-23 06:47 | P.PN_ITS ---
Subjective Subjective: Interval history: Rima's swabs came back positive for influenza type A. She says last night was the first night that she did not have any drainage from her wound when she was up. She has been ambulating. Her appetite is improving. Vitals/I&O/Wt Last Vital Signs Temp 100.3 F H 05/23/19 04:00 Pulse 81 05/23/19 04:00 Resp 18 05/23/19 04:00 BP 120/77 05/23/19 04:00 Pulse Ox 97 05/23/19 04:00 05/22/19 05/22/19 05/23/19 14:59 22:59 06:59 Intake Total 480 / 480 385 / 865 640 / 1505 Output Total 300 / 300 950 / 1250 Balance 180 / 180 385 / 565 -310 / 255 Weight last 48 hrs Weight 221 lb 8 oz Weight 220 lb 6.4 oz Physical Exam Narrative: EXAM NARRATIVE: The patient is running some fevers. Incision remains well approximated. Urinary Catheter Management^: Lynch: Cath Placed During This Visit: no Data : 05/23/19 06:00 05/22/19 04:57 Micro: Microbiology 05/22/19 20:31 Blood Culture - Preliminary Blood SPECIMEN COLLECTED 05/22/19 20:10 Blood Culture - Preliminary Blood SPECIMEN COLLECTED A&P Assessment and plan (1) Cancer of descending colon: Status post partial colectomy with reanastomosis on 05/18/2019 for metachronous colon cancer. Final surgical pathology still pending, but colonoscopy biopsy showed moderately differentiated adenocarcinoma as expected. I am going to resume the patient's Eliquis and watch. Status: Acute Code(s): C18.6 - Malignant neoplasm of descending colon Attestations Medical Necessity Statement*: See admitting service's notation. Coding Level of Care Code Acute Signals Intelligence Superintendent for [facility] Diagnoses Cancer of descending colon C18.6
[2019-05-23 06:49] LABS: Alanine Aminotransferase 19 U/L (0-33); Albumin Level 2.6 g/dL (3.5-5.2); Alkaline Phosphatase 59 IU/L (35-105); Anion Gap 21.1 (5-19); Aspartate Amino Transferase 23 U/L (0-32); Blood Urea Nitrogen 6 mg/dL (8-23); Calcium 8.7 mg/dL (8.5-10.5); Carbon Dioxide 13 mmol/L (22-29); Chloride 102 mmol/L (98-107); Globulin 3.7 g/dL (1.3-4.6); Glomerular Filtration Rate 99.4 mL/min (90-130); Glucose 186 mg/dL (74-106); Potassium 3.1 mmol/L (3.5-5.1); Sodium 133 mmol/L (136-145); Total Bilirubin 0.5 mg/dL (0.15-1.2); Total Protein 6.3 g/dL (6.6-8.7)
[2019-05-23] MEDS: benzonatate 100 mg Capsule PO ×2 (08:36→22:23)
[2019-05-23] MEDS: hydroCHLOROthiazide 25 mg Tablet PO (08:36)
[2019-05-23] MEDS: famotidine 20 mg Tablet PO ×2 (08:36→17:44)
[2019-05-23] MEDS: apixaban 5 mg Tablet 2.5 MG PO ×2 (08:36→17:44)
[2019-05-23] MEDS: acetaminophen 325 mg Tablet PO ×2 (08:36→22:18)
[2019-05-23] MEDS: loratadine 10 mg Tablet PO (08:36)
[2019-05-23] MEDS: metoprolol tartrate 25 mg Tablet PO ×2 (08:37→22:19)
[2019-05-23 09:26] LABS: Add Urine Microscopic? YES; Bilirubin Urine 1+ (NEGATIVE); Blood Urine 2+ (Negative); Glucose Urine UA 2+ (Normal); Ketones Urine 2+ (Negative); Leukocyte Esterase Urine 2+ (Negative); Nitrate Urine Negative (Negative); Protein Urine 1+ (Negative); Urine Appearance SL Hazy (CLEAR); Urine Color Yellow (Yellow); Urobilinogen Urine Norm (Negative)
[2019-05-23] MEDS: oseltamivir phosphate 75 mg Capsule PO ×2 (09:31→17:44)
[2019-05-23 09:40] LABS: Bacteria Urine 2+; Mucus Urine TRACE; Squamous Epithelial Cell Urine 40-55 (0-5)
[2019-05-23 09:41] LABS: Add Urine Culture? No
[2019-05-23] MEDS: ipratropium-albuterol 3 mL Neb INHALATION ×3 (09:55→21:21)
[2019-05-23 11:09] LABS: Glucose Point of Care 210 mg/dL (70-110)
[2019-05-23 16:45] LABS: Glucose Point of Care 233 mg/dL (70-110)
--- NOTE | 2019-05-23 17:11 | P.PN_ITS ---
Subjective Subjective: Interval history: Today she is feeling slightly better. She tried to walk out to the door into the [place] yesterday evening, her had to bring her back in a wheelchair as she got very tired. Vitals/I&O/Wt Last Vital Signs Temp 98.8 F 05/23/19 15:55 Pulse 76 05/23/19 15:55 Resp 17 05/23/19 15:55 BP 129/75 05/23/19 15:55 Pulse Ox 96 05/23/19 15:55 05/23/19 05/23/19 05/23/19 06:59 14:59 22:59 Intake Total 640 / 1505 480 / 480 Output Total 950 / 1250 Balance -310 / 255 479 / 479 Weight last 48 hrs Weight 100.471 kg Weight 99.972 kg Physical Exam Const: COMMON NORMALS: no apparent distress and oriented x3 HENMT: COMMON NORMALS: oropharynx normal Neck/C-Spine: COMMON NORMALS: no JVD Resp: COMMON NORMALS: normal respiratory effort and clear to auscultation bilaterally AUSCULTATION: clear to auscultation bilaterally Cardio: COMMON NORMALS: no JVD, regular rhythm, S1 normal heart sound, S2 normal heart sound and no murmurs RHYTHM: regular rhythm HEART SOUNDS: S1 normal and S2 normal GI: COMMON NORMALS: soft to palpation and non-tender PALPATION: Yes soft OTHER: Abdominal wound covered by dressing. No surrounding erythema. No significant bleeding. Dressing appears clean. Extremity: COMMON NORMALS: no joint enlargement and no pedal edema Neuro: COMMON NORMALS: oriented x3 and moves all extremities Skin: COMMON NORMALS: no rashes or lesions noted GENERAL SKIN EXAM: no rashes or lesions noted Data : 05/23/19 06:00 05/23/19 06:00 Micro: Microbiology 05/22/19 20:31 Blood Culture - Preliminary Blood SPECIMEN COLLECTED 05/22/19 20:10 Blood Culture - Preliminary Blood SPECIMEN COLLECTED A&P Assessment and plan (1) Influenza A: With malaise, generalized weakness superimposed on her previous deconditioning. Started on Tamiflu. Droplet isolation. Status: Acute Code(s): J10.1 - Influenza due to other identified influenza virus with other respiratory manifestations (2) Fever: This is suspected secondary to influenza A. 1/27 having some malaise, with upper respiratory congestion, blowing her nose multiple times during my visit, with low-grade temp. Early in the morning had one episode of diarrhea, but without recurrence. Later in the afternoon I see she is spiked a fever 102.3. I was not notified about this. Blood culture. Chest x-ray, UA unremarkable. Status: Acute Code(s): R50.9 - Fever, unspecified (3) Anemia: Hemoglobin appears to be stabilizing. Still some saturation of dressing, with serous discharge, however, does not appear to have further bleeding. SCD for DVT prophylaxis. If remains stable, consider adding pharmacologic DVT prophylaxis. Status: Acute Qualifiers: Anemia type: other cause Other causes of anemia: chronic disease, other Qualified Code(s): D63.8 - Anemia in other chronic diseases classified elsewhere Code(s): D64.9 - Anemia, unspecified (4) Hypoxia: Weaned off oxygen. Chest x-ray unremarkable. Hypoxia was likely secondary to fluid overload after PRBC transfusion, IV fluids. Responded well to Lasix. IV fluids that were discontinued. History of DVT and PE. No DVT noted on duplex ultrasound this admission. IVC filter noted. Eliquis resumed. Possibility of bronchitis which was present preadmission. Tessalon Pearles. Continue breathing treatments as needed symptomatically. Oxygen support as needed. Status: Acute Code(s): R09.02 - Hypoxemia (5) Thrombocytopenia: PLT down to 34 thousand appears to have been a spurious result, subsequently with normal platelet levels. Probability of HIT was deemed low. Status: Acute Code(s): D69.6 - Thrombocytopenia, unspecified (6) Diabetes: Add Lantus. Continue sliding scale insulin. Status: Acute Qualifiers: Diabetes mellitus complication status: with hyperglycemia Diabetes mellitus usp insulin use: without usp use Diabetes mellitus type: type 2 Qualified Code(s): E11.65 - Type 2 diabetes mellitus with hyperglycemia Code(s): E11.9 - Type 2 diabetes mellitus without complications (7) Left leg DVT: History of DVT 5 years ago. No DVT on Doppler ultrasound. Continue SCD. Eliquis resumed. Status: Acute Qualifiers: Affected thrombotic vein of extremity: unspecified vein of extremity Chronicity: chronic Qualified Code(s): I82.502 - Chronic embolism and thrombosis of unspecified deep veins of left lower extremity Code(s): I82.402 - Acute embolism and thrombosis of unspecified deep veins of left lower extremity (8) HTN (hypertension): At goal. 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 Continue I-S. Mobilize. Arrangements for SNF by discharge planning. Assessment of postoperative fever. Status: Acute Code(s): C18.6 - Malignant neoplasm of descending colon (10) Generalized weakness: Multifactorial, with symptomatic anemia, postoperative, with diarrhea. Treat flu. Mobilize. Continue PT. C. difficile negative. Was started on Lomotil for diarrhea. Status: Acute Code(s): R53.1 - Weakness Additional A&P Information Diarrhea: 1 episode this morning, without recurrence. Attestations Medical Necessity Statement*: Continue admission for assessment and management of acute influenza postoperatively after partial colectomy secondary to colon cancer, with blood loss anemia. Discharge arrangements in progress. Coding Level of Care Code Acute Business Objects Analyst for [facility] Fwd Diagnoses Influenza A J10.1 Fever R50.9 Anemia D63.8 Anemia type: other cause Other causes of anemia: chronic disease, other Hypoxia R09.02 Thrombocytopenia D69.6 Diabetes E11.65 Diabetes mellitus complication status: with hyperglycemia Diabetes mellitus usp insulin use: without usp use Diabetes mellitus type: type 2 Left leg DVT I82.502 Affected thrombotic vein of extremity: unspecified vein of extremity Chronicity: chronic HTN (hypertension) I10 Hypertension type: essential hypertension Cancer of descending colon C18.6 Generalized weakness R53.1
--- NOTE | 2019-05-23 19:17 | PC.NURSE ---
Introduction of staff and report received, aidet.
[2019-05-23 21:39] LABS: Glucose Point of Care 184 mg/dL (70-110)
[2019-05-23] MEDS: insulin glargine 100 units/1 mL 10 UNIT SUBCUT (22:20)
[2019-05-24] VITALS (13 sets, daily range): BP systolic 108–143; BP diastolic 68–79; PULSE 63–98; RESP 17–20; TEMP 37.1–37.8; O2SAT 95–98
[2019-05-24] MEDS: ipratropium-albuterol 3 mL Neb INHALATION ×4 (02:58→20:49)
[2019-05-24 06:22] LABS: Basophils % 0.2 %; Eosinophils # 0.2 10^3/uL (0.0-0.8); Eosinophils % 1.8 %; Hematocrit 31.2 % (37.0-47.0); Hemoglobin 9.8 g/dL (11.5-15.3); Lymphocytes # 1.5 10^3/uL (0.8-4.8); Lymphocytes % 16.4 %; Mean Corpuscular HGB Conc 31.4 g/dL (30.0-36.0); Mean Corpuscular Hemoglobin 25.7 pg (28.0-34.0); Mean Corpuscular Volume 81.7 fL (81-99); Mean Platelet Volume 9.7 fL (7.4-10.4); Monocytes # 0.7 10^3/uL (0.2-0.9); Monocytes % 7.4 %; Neutrophils # 6.8 10^3/uL (1.8-7.7); Neutrophils % 73.4 %; Nucleated Red Blood Cells % 0 %; Platelet Count 238 10^3/cmm (130-400); Red Blood Count 3.82 10^6/uL (4.1-5.3); Red Cell Distribution Width 16.4 % (12.1-15.1); White Blood Count 9.3 10^3/uL (4.0-10.0)
[2019-05-24 06:41] LABS: Anion Gap 16.7 (5-19); Blood Urea Nitrogen 6 mg/dL (8-23); Calcium 9.5 mg/dL (8.5-10.5); Carbon Dioxide 18 mmol/L (22-29); Chloride 103 mmol/L (98-107); Glomerular Filtration Rate 99.4 mL/min (90-130); Glucose 184 mg/dL (74-106); Osmolality Calculated 281 mOsm/kg (285-295); Sodium 135 mmol/L (136-145)
[2019-05-24 06:43] LABS: Glucose Point of Care 176 mg/dL (70-110)
[2019-05-24 07:12] LABS: Potassium 2.7 mmol/L (3.5-5.1)
--- NOTE | 2019-05-24 08:34 | PM.PN ---
Subjective Subjective: Interval history: The patient says she is feeling fairly well today. She is currently on Pepcid but says she does not think it is doing the job with respect to controlling her reflux symptoms.. She would like to get back on Protonix. Her other complaint this morning is that all of the food she gets is cold; she says the nurses cannot heat it up for her because they cannot take her food into common areas given her influenza. She is planning on going to [facility] for recuperation following discharge. Vitals/I&O/Wt Last Vital Signs Temp 98.7 F 05/24/19 07:26 Pulse 67 05/24/19 07:26 Resp 20 H 05/24/19 07:26 BP 108/68 05/24/19 07:26 Pulse Ox 98 05/24/19 07:26 05/23/19 05/24/19 05/24/19 22:59 06:59 14:59 Intake Total 240 / 720 480 / 1200 Output Total 1500 / 1501 300 / 1801 Balance -1260 / -781 180 / -601 Weight last 48 hrs Weight 220 lb Weight 221 lb 8 oz Physical Exam Narrative: EXAM NARRATIVE: The incision is well approximated with minimal erythema around the umbilical level. Urinary Catheter Management^: Lynch: Cath Placed During This Visit: no Data : 05/24/19 06:11 05/24/19 06:11 Micro: Microbiology 05/22/19 20:10 Blood Culture - Preliminary Blood Gram positive cocci 05/22/19 20:31 Blood Culture - Preliminary Blood NEGATIVE TO DATE A&P Assessment and plan (1) Cancer of descending colon: Status post partial colectomy with reanastomosis on 05/18/2019 for metachronous colon cancer. Final surgical pathology still pending, but colonoscopy biopsy showed moderately differentiated adenocarcinoma as expected. Resume Protonix. Potassium being replaced. Status: Acute Code(s): C18.6 - Malignant neoplasm of descending colon Attestations Medical Necessity Statement*: See admitting service's notation. Coding Level of Care Code Acute Supervisor [employer] for [facility] Diagnoses Cancer of descending colon C18.6
[2019-05-24] MEDS: oseltamivir phosphate 75 mg Capsule PO ×2 (09:15→17:22)
[2019-05-24] MEDS: pantoprazole DR 40 mg Tablet PO ×2 (09:16→17:22)
[2019-05-24] MEDS: hydroCHLOROthiazide 25 mg Tablet PO (09:16)
[2019-05-24] MEDS: loratadine 10 mg Tablet PO (09:16)
[2019-05-24] MEDS: apixaban 5 mg Tablet 2.5 MG PO ×2 (09:16→17:23)
--- NOTE | 2019-05-24 09:41 | PC.SOCIAL ---
IMM update Pg 2 of IMM was updated with patient and a copy was provided. She verbalized understanding and had no questions. Initialed, dated, and timed copy in chart.
[2019-05-24 09:48] LABS: Magnesium 1.5 mg/dL (1.7-2.3)
[2019-05-24] MEDS: acetaminophen 325 mg Tablet PO (11:12)
[2019-05-24 11:53] LABS: Glucose Point of Care 229 mg/dL (70-110)
[2019-05-24 16:21] LABS: Glucose Point of Care 146 mg/dL (70-110)
--- NOTE | 2019-05-24 18:22 | P.PN_ITS ---
Subjective Subjective: Interval history: She continues to have nasal discharge. Chills are somewhat better. She has been attempting to walk in her room. Vitals/I&O/Wt Last Vital Signs Temp 98.9 F 05/24/19 15:44 Pulse 92 05/24/19 15:44 Resp 20 H 05/24/19 15:44 BP 134/75 05/24/19 15:44 Pulse Ox 97 05/24/19 15:44 05/24/19 05/24/19 05/24/19 06:59 14:59 22:59 Intake Total 480 / 1200 240 / 240 240 / 480 Output Total 300 / 1801 Balance 180 / -601 240 / 240 240 / 480 Weight last 48 hrs Weight 99.79 kg Weight 100.471 kg Physical Exam Const: COMMON NORMALS: no apparent distress and oriented x3 HENMT: COMMON NORMALS: oropharynx normal Neck/C-Spine: COMMON NORMALS: no JVD Resp: COMMON NORMALS: normal respiratory effort and clear to auscultation bilaterally AUSCULTATION: clear to auscultation bilaterally Cardio: COMMON NORMALS: no JVD, regular rhythm, S1 normal heart sound, S2 normal heart sound and no murmurs RHYTHM: regular rhythm HEART SOUNDS: S1 normal and S2 normal GI: COMMON NORMALS: soft to palpation and non-tender PALPATION: Yes soft OTHER: Abdominal wound covered by dressing. No surrounding erythema. No significant bleeding. Dressing appears clean. Extremity: COMMON NORMALS: no joint enlargement and no pedal edema Neuro: COMMON NORMALS: oriented x3 and moves all extremities Skin: SKIN IMAGES (FEMALE): 1. 2. 3. 4. 5. 6. RASHES: rashes noted (Faint papular rash on bilateral dorsal wrists, scattered on lower extremities.) Urinary Catheter Management^: Lynch: Cath Placed During This Visit: no Data : 05/24/19 06:11 05/24/19 06:11 Micro: Microbiology 05/22/19 20:10 Blood Culture - Preliminary Blood Gram positive cocci 05/22/19 20:31 Blood Culture - Preliminary Blood NEGATIVE TO DATE A&P Assessment and plan (1) Influenza A: With malaise, generalized weakness superimposed on her previous deconditioning. Tamiflu. Droplet isolation. Status: Acute Code(s): J10.1 - Influenza due to other identified influenza virus with other respiratory manifestations (2) Fever: Resolved. Secondary to influenza A. Status: Acute Code(s): R50.9 - Fever, unspecified (3) Rash: Papular rash on bilateral dorsal wrists, as well as around calves and thighs. Nonpruritic. She says this rash has been there for close to a week, although I did not see it earlier. We will discontinue HCTZ. Discussed with pharmacy, and does not appear to be on other medications that should commonly cause a rash. I do not see mucosal involvement. Appears did have transient thrombocytopenia on 05/21. I highly doubt RMSF with her hospitalization, time of the year. Liver function is normal. Status: Acute Code(s): R21 - Rash and other nonspecific skin eruption (4) Anemia: Hemoglobin appears to be stabilizing. Still some saturation of dressing, with serous discharge, however, does not appear to have further bleeding. SCD for DVT prophylaxis. If remains stable, consider adding pharmacologic DVT prophylaxis. Status: Acute Qualifiers: Anemia type: other cause Other causes of anemia: chronic disease, other Qualified Code(s): D63.8 - Anemia in other chronic diseases classified elsewhere Code(s): D64.9 - Anemia, unspecified (5) Hypoxia: Weaned off oxygen. Chest x-ray unremarkable. Hypoxia was likely secondary to fluid overload after PRBC transfusion, IV fluids. Responded well to Lasix. IV fluids that were discontinued. History of DVT and PE. No DVT noted on duplex ultrasound this admission. IVC filter noted. Eliquis resumed. Possibility of bronchitis which was present preadmission. Tessalon Pearles. Continue breathing treatments as needed symptomatically. Oxygen support as needed. Status: Acute Code(s): R09.02 - Hypoxemia (6) Thrombocytopenia: Transient thrombocytopenia. PLT down to 34 thousand 05/21, subsequently with normal platelet levels. Perhaps spurious, although did appear on peripheral smear. Possibly related to influenza infection. Status: Acute Code(s): D69.6 - Thrombocytopenia, unspecified (7) Diabetes: Added Lantus. Continue sliding scale insulin. Status: Acute Qualifiers: Diabetes mellitus complication status: with hyperglycemia Diabetes mellitus terminal press operator insulin use: without jail use Diabetes mellitus type: type 2 Qualified Code(s): E11.65 - Type 2 diabetes mellitus with hyperglycemia Code(s): E11.9 - Type 2 diabetes mellitus without complications (8) Left leg DVT: History of DVT 5 years ago. No DVT on Doppler ultrasound. Continue SCD. Eliquis resumed. Status: Acute Qualifiers: Affected thrombotic vein of extremity: unspecified vein of extremity Chronicity: chronic Qualified Code(s): I82.502 - Chronic embolism and thrombosis of unspecified deep veins of left lower extremity Code(s): I82.402 - Acute embolism and thrombosis of unspecified deep veins of left lower extremity (9) HTN (hypertension): At goal. Status: Acute Qualifiers: Hypertension type: essential hypertension Qualified Code(s): I10 - Essential (primary) hypertension Code(s): I10 - Essential (primary) hypertension (10) Cancer of descending colon: Status post resection. Continue IS. Mobilize. Arrangements for SNF by discharge planning due to physical deconditioning. Follow-up with oncology. Status: Acute Code(s): C18.6 - Malignant neoplasm of descending colon (11) Generalized weakness: Multifactorial, with symptomatic anemia, postoperative, with diarrhea. Treat flu. Mobilize. Continue PT. C. difficile negative. Was started on Lomotil for diarrhea. Status: Acute Code(s): R53.1 - Weakness (12) Hypokalemia: Replaced. Replace hypomagnesemia. Status: Acute Code(s): E87.6 - Hypokalemia (13) Hypomagnesemia: Replace Status: Acute Code(s): E83.42 - Hypomagnesemia Additional A&P Information Diarrhea: Loose stools for which she is on Lomotil. C. difficile was negative. Attestations Medical Necessity Statement*: Continue admission for assessment management after partial colectomy due to colon cancer, acute influenza, electrolyte abnormalities, disposition arrangements for placement to SNF with physical deconditioning. Coding Level of Care Code Acute Plumbing Installer for [facility] Fwd Diagnoses Influenza A J10.1 Fever R50.9 Rash R21 Anemia D63.8 Anemia type: other cause Other causes of anemia: chronic disease, other Hypoxia R09.02 Thrombocytopenia D69.6 Diabetes E11.65 Diabetes mellitus complication status: with hyperglycemia Diabetes mellitus jail insulin use: without terminal press operator use Diabetes mellitus type: type 2 Left leg DVT I82.502 Affected thrombotic vein of extremity: unspecified vein of extremity Chronicity: chronic HTN (hypertension) I10 Hypertension type: essential hypertension Cancer of descending colon C18.6 Generalized weakness R53.1 Hypokalemia E87.6 Hypomagnesemia E83.42
--- NOTE | 2019-05-24 19:00 | PC.NURSE ---
Introduction of staff and report received, aidet.
[2019-05-24] MEDS: insulin glargine 100 units/1 mL 10 UNIT SUBCUT (21:38)
[2019-05-24] MEDS: magnesium sulfate premix 2 GM/50 ML PIGGYBACK IV (21:39)
[2019-05-24] MEDS: metoprolol tartrate 25 mg Tablet PO (21:40)
[2019-05-24] MEDS: benzonatate 100 mg Capsule PO (21:40)
[2019-05-24 22:06] LABS: Glucose Point of Care 221 mg/dL (70-110)
[2019-05-25] VITALS (11 sets, daily range): BP systolic 129–151; BP diastolic 73–86; PULSE 81–98; RESP 17–24; TEMP 36.7–38.1; O2SAT 96–99
[2019-05-25] MEDS: ipratropium-albuterol 3 mL Neb INHALATION ×2 (02:34→14:37)
[2019-05-25] MEDS: metoprolol tartrate 25 mg Tablet PO ×2 (06:39→22:01)
--- NOTE | 2019-05-25 06:53 | PM.PN ---
Subjective Subjective: Interval history: The patient has had some episodes of emesis this morning. She said she is coughing so bad that she is gagging herself. She continues to pass flatus, however. She says her reflux symptoms are bad, but just started her Protonix again yesterday. The patient says that her Lomotil and Tylenol were discontinued last night. Apparently there was some thought that she may be getting a rash from 1 of these, but she has taken both of these medications for years and never had a problem before. She would like me to restart them. Vitals/I&O/Wt Last Vital Signs Temp 100.6 F H 05/25/19 03:49 Pulse 82 05/25/19 03:49 Resp 18 05/25/19 03:49 BP 144/73 05/25/19 03:49 Pulse Ox 96 05/25/19 03:49 05/24/19 05/24/19 05/25/19 14:59 22:59 06:59 Intake Total 240 / 240 365 / 605 480 / 1085 Output Total 1600 / 1600 Balance 240 / 240 365 / 605 -1120 / -515 Weight last 48 hrs Weight 221 lb 6.4 oz Weight 220 lb Physical Exam Narrative: EXAM NARRATIVE: The incision remains well approximated. No evidence of an infection is present. Urinary Catheter Management^: Lynch: Cath Placed During This Visit: no Data : 05/24/19 06:11 05/24/19 06:11 Micro: Microbiology 05/22/19 20:10 Blood Culture - Preliminary Blood Gram positive cocci Other data: Final Diagnosis Terminal ileum and transverse colon with anastomosis, partial colectomy: Moderately differentiated adenocarcinoma 3.5 cm in greatest dimension, with focal mucinous differentiation All margins free of dysplasia and invasive adenocarcinoma Separate anastomotic donuts with no dysplasia or malignancy Terminal ileum and non-neoplastic bowel with no histopathologic diagnosis 6 pericolonic lymph nodes with no tumor seen. 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 Final pathology indicates clear margins and no lymph node involvement. Labs pending. Restart Lomotil and Tylenol. Status: Acute Code(s): C18.6 - Malignant neoplasm of descending colon Attestations Medical Necessity Statement*: See admitting service's notation. Coding Level of Care Code Acute Supervisor Nut Processing for [facility] Diagnoses Cancer of descending colon C18.6
--- NOTE | 2019-05-25 07:00 | PC.NURSE ---
DR HALE HERE TO SEE PT, NOTIFIED OF PT VOMITING DURING THE NIGHT. GOING TO RE-INSTATE LOMOTIL AND TYLENOL.
[2019-05-25 07:03] LABS: Basophils % 0.2 %; Eosinophils # 0.1 10^3/uL (0.0-0.8); Eosinophils % 0.6 %; Hematocrit 30.6 % (37.0-47.0); Hemoglobin 9.6 g/dL (11.5-15.3); Lymphocytes # 1.1 10^3/uL (0.8-4.8); Lymphocytes % 11.2 %; Mean Corpuscular HGB Conc 31.4 g/dL (30.0-36.0); Mean Corpuscular Hemoglobin 25.7 pg (28.0-34.0); Mean Platelet Volume 10.7 fL (7.4-10.4); Monocytes # 0.7 10^3/uL (0.2-0.9); Monocytes % 6.8 %; Neutrophils # 7.7 10^3/uL (1.8-7.7); Neutrophils % 80.4 %; Nucleated Red Blood Cells % 0 %; Platelet Count 269 10^3/cmm (130-400); Red Blood Count 3.73 10^6/uL (4.1-5.3); Red Cell Distribution Width 16.5 % (12.1-15.1); White Blood Count 9.6 10^3/uL (4.0-10.0)
[2019-05-25 07:17] LABS: Alanine Aminotransferase 18 U/L (0-33); Albumin Level 2.3 g/dL (3.5-5.2); Alkaline Phosphatase 71 IU/L (35-105); Anion Gap 24.7 (5-19); Aspartate Amino Transferase 28 U/L (0-32); Blood Urea Nitrogen 5 mg/dL (8-23); Calcium 9.8 mg/dL (8.5-10.5); Carbon Dioxide 16 mmol/L (22-29); Chloride 99 mmol/L (98-107); Glomerular Filtration Rate 99.4 mL/min (90-130); Glucose 175 mg/dL (74-106); Sodium 137 mmol/L (136-145); Total Bilirubin 0.5 mg/dL (0.15-1.2); Total Protein 6.3 g/dL (6.6-8.7)
[2019-05-25 07:32] LABS: Potassium 2.7 mmol/L (3.5-5.1)
[2019-05-25 07:35] LABS: Magnesium 1.7 mg/dL (1.7-2.3)
[2019-05-25] MEDS: apixaban 5 mg Tablet 2.5 MG PO ×2 (08:30→18:36)
[2019-05-25] MEDS: pantoprazole DR 40 mg Tablet PO ×2 (08:30→18:36)
[2019-05-25] MEDS: loratadine 10 mg Tablet PO (08:31)
[2019-05-25] MEDS: oseltamivir phosphate 75 mg Capsule PO ×2 (08:31→18:35)
[2019-05-25] MEDS: ondansetron 4 MG Tablet PO (10:38)
[2019-05-25 10:39] LABS: Glucose Point of Care 166 mg/dL (70-110)
--- NOTE | 2019-05-25 16:03 | P.PN_ITS ---
Subjective Subjective: Interval history: Rima reports she is still been having some diarrhea. She has some vomiting, after coughing. Medications: Reviewed: Yes Vitals/I&O/Wt Last Vital Signs Temp 98.0 F 05/25/19 12:00 Pulse 88 05/25/19 14:41 Resp 17 05/25/19 14:39 BP 137/78 05/25/19 12:00 Pulse Ox 97 05/25/19 14:39 05/25/19 05/25/19 05/25/19 06:59 14:59 22:59 Intake Total 480 / 1085 Output Total 1600 / 1600 600 / 600 Balance -1120 / -515 -600 / -600 Weight last 48 hrs Weight 100.425 kg Weight 99.79 kg Physical Exam Narrative: EXAM NARRATIVE: General exam is no apparent distress Cardiovascular regular rate and rhythm Lungs diminished breath sounds bilaterally but no wheezes Abdomen is soft. Positive bowel sounds are noted Extremities no cyanosis clubbing or edema Urinary Catheter Management^: Lynch: Cath Placed During This Visit: no Data : 05/25/19 05:58 05/25/19 05:58 Micro: Microbiology 05/22/19 20:10 Blood Culture - Preliminary Blood Gram positive cocci A&P Assessment and plan (1) Influenza A: Currently on Tamiflu. Improving although still coughing. Droplet isolation Status: Acute Code(s): J10.1 - Influenza due to other identified influenza virus with other respiratory manifestations (2) Fever: Secondary to influenza A. Improved Status: Acute Code(s): R50.9 - Fever, unspecified (3) Rash: Mild papular rash, appears viral. Doubt allergy. Hydrochlorothiazide was discontinued secondary to concern this may be contributing. Status: Acute Code(s): R21 - Rash and other nonspecific skin eruption (4) Anemia: Hemoglobin stable Status: Acute Qualifiers: Anemia type: other cause Other causes of anemia: chronic disease, other Qualified Code(s): D63.8 - Anemia in other chronic diseases classified elsewhere Code(s): D64.9 - Anemia, unspecified (5) Hypoxia: Resolved, likely secondary to fluid overload Status: Acute Code(s): R09.02 - Hypoxemia (6) Thrombocytopenia: Transient, resolved Status: Acute Code(s): D69.6 - Thrombocytopenia, unspecified (7) Diabetes: Lantus was added. Currently on sliding scale insulin Status: Acute Qualifiers: Diabetes mellitus complication status: with hyperglycemia Diabetes mellitus terminal gauger supervisor insulin use: without group home use Diabetes mellitus type: type 2 Qualified Code(s): E11.65 - Type 2 diabetes mellitus with hyperglycemia Code(s): E11.9 - Type 2 diabetes mellitus without complications (8) Left leg DVT: On Eliquis. DVT was 5 years ago. 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 Progressing well Status: Acute Code(s): C18.6 - Malignant neoplasm of descending colon (11) Generalized weakness: Continue physical therapy Status: Acute Code(s): R53.1 - Weakness (12) Hypokalemia: Replace orally today. Patient has been refusing IV Status: Acute Code(s): E87.6 - Hypokalemia (13) Hypomagnesemia: Replaced Status: Acute Code(s): E83.42 - Hypomagnesemia Additional A&P Information Chronic diarrhea, Lomotil resumed Attestations Medical Necessity Statement*: Needs continued hospitalization for yoo pplementation of potassium, close monitoring following surgery Coding Level of Care Code Acute Vamper for [facility] Fwd Diagnoses Influenza A J10.1 Fever R50.9 Rash R21 Anemia D63.8 Anemia type: other cause Other causes of anemia: chronic disease, other Hypoxia R09.02 Thrombocytopenia D69.6 Diabetes E11.65 Diabetes mellitus complication status: with hyperglycemia Diabetes mellitus group home insulin use: without terminal gauger supervisor use Diabetes mellitus type: type 2 Left leg DVT I82.502 Affected thrombotic vein of extremity: unspecified vein of extremity Chronicity: chronic HTN (hypertension) I10 Hypertension type: essential hypertension Cancer of descending colon C18.6 Generalized weakness R53.1 Hypokalemia E87.6 Hypomagnesemia E83.42
[2019-05-25 17:18] LABS: Glucose Point of Care 154 mg/dL (70-110)
[2019-05-25] MEDS: diphenoxylate/atropine Tablet 1 TAB PO (18:40)
[2019-05-25 20:54] LABS: Glucose Point of Care 161 mg/dL (70-110)
[2019-05-25] MEDS: insulin glargine 100 units/1 mL 10 UNIT SUBCUT (22:02)
[2019-05-26] VITALS (17 sets, daily range): BP systolic 104–179; BP diastolic 50–74; PULSE 60–97; RESP 14–24; TEMP 36.7–37.6; O2SAT 93–98
[2019-05-26] MEDS: ipratropium-albuterol 3 mL Neb INHALATION ×4 (02:32→20:40)
[2019-05-26] MEDS: metoprolol tartrate 25 mg Tablet PO ×2 (06:13→21:15)
[2019-05-26 06:20] LABS: Anion Gap 14.6 (5-19); Blood Urea Nitrogen 7 mg/dL (8-23); Calcium 9.4 mg/dL (8.5-10.5); Carbon Dioxide 22 mmol/L (22-29); Chloride 105 mmol/L (98-107); Glomerular Filtration Rate 99.4 mL/min (90-130); Glucose 116 mg/dL (74-106); Osmolality Calculated 285 mOsm/kg (285-295); Sodium 139 mmol/L (136-145)
[2019-05-26 06:38] LABS: Potassium 2.6 mmol/L (3.5-5.1)
[2019-05-26 07:06] LABS: Glucose Point of Care 115 mg/dL (70-110)
[2019-05-26] MEDS: loratadine 10 mg Tablet PO (09:32)
[2019-05-26] MEDS: apixaban 5 mg Tablet 2.5 MG PO (09:32)
[2019-05-26] MEDS: pantoprazole DR 40 mg Tablet PO (09:33)
[2019-05-26] MEDS: oseltamivir phosphate 75 mg Capsule PO (09:33)
--- NOTE | 2019-05-26 10:16 | PM.PN ---
Subjective Subjective: Interval history: The patient has no specific complaints today. She said last night was the first night that she did not have loose stool during the night. She did take some Lomotil last night. Vitals/I&O/Wt Last Vital Signs Temp 98.8 F 05/26/19 07:47 Pulse 78 05/26/19 09:32 Resp 16 05/26/19 09:32 BP 129/72 05/26/19 07:47 Pulse Ox 96 05/26/19 09:32 05/25/19 05/26/19 05/26/19 22:59 06:59 14:59 Intake Total 150 / 150 Output Total 350 / 950 400 / 1350 Balance -200 / -800 -400 / -1200 Weight last 48 hrs Weight 200 lb 6.4 oz Weight 221 lb 6.4 oz Physical Exam Narrative: EXAM NARRATIVE: The incision remains well approximated. She still has some light erythema primarily around the umbilical level. [place] are intact. 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 Final pathology indicates clear margins and no lymph node involvement. Continue to watch incision. I will plan to remove the skin siobhan in the next 1 to 2 days. Status: Acute Code(s): C18.6 - Malignant neoplasm of descending colon Attestations Medical Necessity Statement*: See admitting service's notation. Coding Level of Care Code Acute Supervisor Of Communications for [facility] Diagnoses Cancer of descending colon C18.6
[2019-05-26 11:09] LABS: Glucose Point of Care 197 mg/dL (70-110)
--- NOTE | 2019-05-26 14:13 | P.PN_ITS ---
Subjective Subjective: Interval history: Rima reports she is feeling better. Less loose stool. She is still refusing an IV. We discussed the risk and benefits, the risk of being arrhythmias from hypokalemia and subsequent medical complications from this. She still does not want an IV. Medications: Reviewed: Yes Medication Review Details: -pending med rec Vitals/I&O/Wt Last Vital Signs Temp 99.5 F 05/26/19 12:00 Pulse 75 05/26/19 12:00 Resp 16 05/26/19 12:00 BP 149/71 05/26/19 12:00 Pulse Ox 95 05/26/19 12:00 05/25/19 05/26/19 05/26/19 22:59 06:59 14:59 Intake Total 150 / 150 360 / 360 Output Total 350 / 950 400 / 1350 Balance -200 / -800 -400 / -1200 360 / 360 Weight last 48 hrs Weight 90.9 kg Weight 100.425 kg Physical Exam Narrative: EXAM NARRATIVE: General exam is no apparent distress, conversant pleasant and does seem to have more energy Cardiovascular regular rate and rhythm Lungs diminished breath sounds bilaterally but no wheezes Abdomen is soft. Positive bowel sounds are noted Extremities no cyanosis clubbing or edema Urinary Catheter Management^: Lynch: Cath Placed During This Visit: no Data : 05/25/19 05:58 05/26/19 05:30 Micro: Microbiology 05/22/19 20:10 Blood Culture - Preliminary Blood Gram positive cocci A&P Assessment and plan (1) Influenza A: Currently on Tamiflu. Improving although still coughing. Droplet isolation Status: Acute Code(s): J10.1 - Influenza due to other identified influenza virus with other respiratory manifestations (2) Fever: Secondary to influenza A. Improved Status: Acute Code(s): R50.9 - Fever, unspecified (3) Rash: Mild papular rash, appears viral. Doubt allergy. Hydrochlorothiazide was discontinued secondary to concern this may be contributing. No worsening Status: Acute Code(s): R21 - Rash and other nonspecific skin eruption (4) Anemia: Hemoglobin stable Status: Acute Qualifiers: Anemia type: other cause Other causes of anemia: chronic disease, other Qualified Code(s): D63.8 - Anemia in other chronic diseases classified elsewhere Code(s): D64.9 - Anemia, unspecified (5) Hypoxia: Resolved, likely secondary to fluid overload Status: Acute Code(s): R09.02 - Hypoxemia (6) Thrombocytopenia: Transient, resolved Status: Acute Code(s): D69.6 - Thrombocytopenia, unspecified (7) Diabetes: Lantus was added. Currently on sliding scale insulin. Sugars controlled Status: Acute Qualifiers: Diabetes mellitus complication status: with hyperglycemia Diabetes mellitus residential insulin use: without long term care social worker use Diabetes mellitus type: type 2 Qualified Code(s): E11.65 - Type 2 diabetes mellitus with hyperglycemia Code(s): E11.9 - Type 2 diabetes mellitus without complications (8) Left leg DVT: On Eliquis. DVT was 5 years ago. Status: Acute Qualifiers: Affected thrombotic vein of extremity: unspecified vein of extremity Chronicity: chronic Qualified Code(s): I82.502 - Chronic embolism and thro mbosis of unspecified deep veins of left lower extremity Code(s): I82.402 - Acute embolism and thrombosis of unspecified deep veins of left lower extremity (9) HTN (hypertension): Controlled Status: Acute Qualifiers: Hypertension type: essential hypertension Qualified Code(s): I10 - Essential (primary) hypertension Code(s): I10 - Essential (primary) hypertension (10) Cancer of descending colon: Status post resection. Progressing well. Surgery following Status: Acute Code(s): C18.6 - Malignant neoplasm of descending colon (11) Generalized weakness: Continue physical therapy Status: Acute Code(s): R53.1 - Weakness (12) Hypokalemia: Still refusing IV. Replace again orally today. Will give multiple doses. Status: Acute Code(s): E87.6 - Hypokalemia (13) Hypomagnesemia: Have ordered on blood in lab but this is still pending. It was canceled for some reason earlier. Status: Acute Code(s): E83.42 - Hypomagnesemia Additional A&P Information Chronic diarrhea, Lomotil resumed. This is helped substantially Attestations Medical Necessity Statement*: Needs continued hospitalization for physical therapy secondary to weakness, supplementation of potassium, pending placement at skilled care on Wednesday Coding Level of Care Code Acute Parking Lot Manager for [facility] Fwd Diagnoses Influenza A J10.1 Fever R50.9 Rash R21 Anemia D63.8 Anemia type: other cause Other causes of anemia: chronic disease, other Hypoxia R09.02 Thrombocytopenia D69.6 Diabetes E11.65 Diabetes mellitus complication status: with hyperglycemia Diabetes mellitus residential insulin use: without residential use Diabetes mellitus type: type 2 Left leg DVT I82.502 Affected thrombotic vein of extremity: unspecified vein of extremity Chronicity: chronic HTN (hypertension) I10 Hypertension type: essential hypertension Cancer of descending colon C18.6 Generalized weakness R53.1 Hypokalemia E87.6 Hypomagnesemia E83.42
[2019-05-26 14:47] LABS: Magnesium 1.6 mg/dL (1.7-2.3)
[2019-05-26 17:19] LABS: Glucose Point of Care 132 mg/dL (70-110)
[2019-05-26] MEDS: acetaminophen 325 mg Tablet PO (17:38)
[2019-05-26] MEDS: diphenoxylate/atropine Tablet 1 TAB PO (17:38)
[2019-05-26 20:53] LABS: Glucose Point of Care 165 mg/dL (70-110)
[2019-05-26] MEDS: insulin glargine 100 units/1 mL 10 UNIT SUBCUT (21:14)
[2019-05-27] VITALS (13 sets, daily range): BP systolic 108–136; BP diastolic 66–83; PULSE 64–79; RESP 16–22; TEMP 36.3–37.2; O2SAT 95–99
[2019-05-27] MEDS: ipratropium-albuterol 3 mL Neb INHALATION ×4 (02:54→20:29)
[2019-05-27] MEDS: metoprolol tartrate 25 mg Tablet PO ×2 (06:06→21:13)
[2019-05-27 06:38] LABS: Glucose Point of Care 140 mg/dL (70-110)
[2019-05-27 08:32] LABS: Anion Gap 17.3 (5-19); Blood Urea Nitrogen 9 mg/dL (8-23); Calcium 9.6 mg/dL (8.5-10.5); Carbon Dioxide 19 mmol/L (22-29); Chloride 103 mmol/L (98-107); Glomerular Filtration Rate 99.4 mL/min (90-130); Glucose 153 mg/dL (74-106); Osmolality Calculated 281 mOsm/kg (285-295); Potassium 3.3 mmol/L (3.5-5.1); Sodium 136 mmol/L (136-145)
[2019-05-27] MEDS: oseltamivir phosphate 75 mg Capsule PO ×2 (08:53→16:58)
[2019-05-27] MEDS: magnesium oxide 400 mg tablet PO ×2 (08:53→16:58)
[2019-05-27] MEDS: apixaban 5 mg Tablet 2.5 MG PO ×2 (08:53→16:59)
[2019-05-27] MEDS: pantoprazole DR 40 mg Tablet PO ×2 (08:53→16:59)
[2019-05-27] MEDS: loratadine 10 mg Tablet PO (08:54)
--- NOTE | 2019-05-27 09:15 | P.PN_ITS ---
Subjective Subjective: Interval history: Rima reports she is doing well. Medications: Reviewed: Yes Vitals/I&O/Wt Last Vital Signs Temp 98.7 F 05/27/19 07:34 Pulse 76 05/27/19 08:25 Resp 18 05/27/19 08:25 BP 108/66 05/27/19 07:34 Pulse Ox 97 05/27/19 08:25 05/26/19 05/27/19 05/27/19 22:59 06:59 14:59 Intake Total 720 / 1320 Output Total 900 / 900 Balance 720 / 1320 -900 / 420 Weight last 48 hrs Weight 91.444 kg Weight 90.9 kg Physical Exam Narrative: EXAM NARRATIVE: General exam is no apparent distress, reports she is feeling even better than yesterday. Cardiovascular regular rate and rhythm Lungs diminished breath sounds bilaterally but no wheezes Abdomen is soft. Positive bowel sounds are noted Extremities no cyanosis clubbing or edema Urinary Catheter Management^: Lynch: Cath Placed During This Visit: no Data : 05/25/19 05:58 05/27/19 07:58 A&P Assessment and plan (1) Influenza A: Currently on Tamiflu. Improving although still coughing. Droplet isolation Status: Acute Code(s): J10.1 - Influenza due to other identified influenza virus with other respiratory manifestations (2) Fever: Secondary to influenza A. Improved Status: Acute Code(s): R50.9 - Fever, unspecified (3) Rash: Mild papular rash, appears viral. Doubt allergy. Hydrochlorothiazide was discontinued secondary to concern this may be contributing. No worsening Status: Acute Code(s): R21 - Rash and other nonspecific skin eruption (4) Anemia: Hemoglobin stable Status: Acute Qualifiers: Anemia type: other cause Other causes of anemia: chronic disease, other Qualified Code(s): D63.8 - Anemia in other chronic diseases classified elsewhere Code(s): D64.9 - Anemia, unspecified (5) Hypoxia: Resolved, likely secondary to fluid overload Status: Acute Code(s): R09.02 - Hypoxemia (6) Thrombocytopenia: Transient, resolved Status: Acute Code(s): D69.6 - Thrombocytopenia, unspecified (7) Diabetes: Lantus was added. Currently on sliding scale insulin. Sugars controlled Status: Acute Qualifiers: Diabetes mellitus complication status: with hyperglycemia Diabetes mellitus long-term insulin use: without long-term use Diabetes mellitus type: type 2 Qualified Code(s): E11.65 - Type 2 diabetes mellitus with hyperglycemia Code(s): E11.9 - Type 2 diabetes mellitus without complications (8) Left leg DVT: On Eliquis. DVT was 5 years ago. 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 Progressing well. Surgery following Status: Acute Code(s): C18.6 - Malignant neoplasm of descending colon (11) Generalized weakness: Continue physical therapy Status: Acute Code(s): R53.1 - Weakness (12) Hypokalemia: Mildly low today. Oral supplementation. No need for laboratory tomorrow. Status: Acute Code(s): E87.6 - Hypokalemia (13) Hypomagnesemia: Supplementation started Status: Acute Code(s): E83.42 - Hypomagnesemia Additional A&P Information Chronic diarrhea, Lomotil resumed. This is helped substantially Attestations Medical Necessity Statement*: Needs continued hospitalization for close monitoring secondary to surgery for colon cancer as well as influenza A. Anticipate discharge Wednesday. Coding Level of Care Code [facility] Textile Bag Sewer [facility] Diagnoses Influenza A J10.1 Fever R50.9 Rash R21 Anemia D63.8 Anemia type: other cause Other causes of anemia: chronic disease, other Hypoxia R09.02 Thrombocytopenia D69.6 Diabetes E11.65 Diabetes mellitus complication status: with hyperglycemia Diabetes mellitus terminal superintendent insulin use: without long-term use Diabetes mellitus type: type 2 Left leg DVT I82.502 Affected thrombotic vein of extremity: unspecified vein of extremity Chronicity: chronic HTN (hypertension) I10 Hypertension type: essential hypertension Cancer of descending colon C18.6 Generalized weakness R53.1 Hypokalemia E87.6 Hypomagnesemia E83.42
--- NOTE | 2019-05-27 10:41 | P.PN_ITS ---
Subjective Subjective: Interval history: Rima says she is doing well today. She had pulled on her bedside table last night and apparently it caused part of her incision did bleed briefly. She says her bowel movements have improved to the point where she is no longer having loose stool. Vitals/I&O/Wt Last Vital Signs Temp 98.7 F 05/27/19 07:34 Pulse 76 05/27/19 08:25 Resp 18 05/27/19 08:25 BP 108/66 05/27/19 07:34 Pulse Ox 97 05/27/19 08:25 05/26/19 05/27/19 05/27/19 22:59 06:59 14:59 Intake Total 720 / 1320 Output Total 900 / 900 Balance 720 / 1320 -900 / 420 Weight last 48 hrs Weight 201 lb 9.6 oz Weight 200 lb 6.4 oz Physical Exam Narrative: EXAM NARRATIVE: The incision remains well approximated. There is some dried blood next to the umbilicus at the incision. About two thirds of the skin siobhan were removed today. Urinary Catheter Management^: Lynch: Cath Placed During This Visit: no Data : 05/25/19 05:58 05/27/19 07:58 Attestations Medical Necessity Statement*: See admitting service's notation. Coding Level of Care Code Acute Information Technology Audit Manager for [facility]
[2019-05-27 11:11] LABS: Glucose Point of Care 167 mg/dL (70-110)
--- NOTE | 2019-05-27 15:26 | PC.NURSE ---
Pt stated, I haven't seen anyone in over three hours. I asked for ice water an hour and a half ago to the aide and she didn't bring it. I explained to the patient hourly rounding had occurred. Pt stated, I have taken several naps. Pt was reoriented to room and environment from wakeful confusion.
[2019-05-27 16:04] LABS: Glucose Point of Care 224 mg/dL (70-110)
[2019-05-27 20:36] LABS: Glucose Point of Care 150 mg/dL (70-110)
[2019-05-27] MEDS: acetaminophen 325 mg Tablet PO (21:13)
[2019-05-27] MEDS: diphenoxylate/atropine Tablet 1 TAB PO (21:14)
[2019-05-27] MEDS: insulin glargine 100 units/1 mL 10 UNIT SUBCUT (21:14)
[2019-05-28] VITALS (8 sets, daily range): BP systolic 120–138; BP diastolic 66–84; PULSE 64–86; RESP 16–20; TEMP 36.3–37.4; O2SAT 94–97
[2019-05-28] MEDS: ipratropium-albuterol 3 mL Neb INHALATION (03:04)
[2019-05-28] MEDS: metoprolol tartrate 25 mg Tablet PO ×2 (05:36→21:43)
[2019-05-28 06:50] LABS: Glucose Point of Care 108 mg/dL (70-110)
--- NOTE | 2019-05-28 07:38 | P.PN_ITS ---
Subjective Subjective: Interval history: The patient says that she had serosanguineous drainage from her incision last night. A dressing was placed on the wound. Vitals/I&O/Wt Last Vital Signs Temp 97.4 F L 05/28/19 07:11 Pulse 78 05/28/19 07:11 Resp 18 05/28/19 07:11 BP 138/72 05/28/19 07:11 Pulse Ox 94 05/28/19 07:11 05/27/19 05/28/19 05/28/19 22:59 06:59 14:59 Intake Total 840 / 1200 720 / 1920 Output Total 500 / 500 Balance 840 / 1200 220 / 1420 Weight last 48 hrs Weight 202 lb 6.4 oz Weight 201 lb 9.6 oz Physical Exam Narrative: EXAM NARRATIVE: The patient continues to have some limited erythema around the incision at the lower aspect. Upon removing the dressing, there is still a small amount of serosanguineous fluid that leaks from the very inferior aspect. 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 Final pathology indicates clear margins and no lymph node involvement. I am going to leave the remaining skin siobhan in for now. Patient scheduled to transfer to the nursing facility tomorrow. I will start some Bactrim DS in the meantime. Status: Acute Code(s): C18.6 - Malignant neoplasm of descending colon Attestations Medical Necessity Statement*: See admitting service's notation. Coding Level of Care Code Acute Crewman Main Battle [employer] for [facility] Diagnoses Cancer of descending colon C18.6
[2019-05-28] MEDS: pantoprazole DR 40 mg Tablet PO ×2 (09:35→17:56)
[2019-05-28] MEDS: apixaban 5 mg Tablet 2.5 MG PO ×2 (09:36→17:56)
[2019-05-28] MEDS: oseltamivir phosphate 75 mg Capsule PO ×2 (09:36→17:56)
[2019-05-28] MEDS: magnesium oxide 400 mg tablet PO ×2 (09:36→17:56)
[2019-05-28] MEDS: loratadine 10 mg Tablet PO (09:36)
[2019-05-28] MEDS: diphenoxylate/atropine Tablet 1 TAB PO ×2 (09:41→21:42)
[2019-05-28] MEDS: sulfamethoxazole-trimeth DS 160-800 mg Tablet 1 TAB PO ×2 (09:51→17:56)
--- NOTE | 2019-05-28 10:35 | PC.SOCIAL ---
IMM Updated Updated pt on Pg 2 IMM. Pt verbally understands, no questions voiced. Provided a copy to pt & left on pt's bedside table. Signed, dated, & timed original in chart.
--- NOTE | 2019-05-28 10:39 | PM.PN ---
Subjective Subjective: Interval history: Rima reports she is doing okay with been having some loose stools. Had 3 today. Medications: Reviewed: Yes Vitals/I&O/Wt Last Vital Signs Temp 97.4 F L 05/28/19 07:11 Pulse 78 05/28/19 07:11 Resp 18 05/28/19 07:11 BP 138/72 05/28/19 07:11 Pulse Ox 94 05/28/19 07:11 05/27/19 05/28/19 05/28/19 22:59 06:59 14:59 Intake Total 840 / 1200 720 / 1920 240 / 240 Output Total 500 / 500 Balance 840 / 1200 220 / 1420 240 / 240 Weight last 48 hrs Weight 91.807 kg Weight 91.444 kg Physical Exam Narrative: EXAM NARRATIVE: General exam is no apparent distress. Cardiovascular regular rate and rhythm Lungs diminished breath sounds bilaterally but no wheezes Abdomen is soft. Positive bowel sounds are noted Extremities no cyanosis clubbing or edema Urinary Catheter Management^: Lynch: Cath Placed During This Visit: no Data : 05/25/19 05:58 05/27/19 07:58 Micro: Microbiology 05/22/19 20:31 Blood Culture - Final Blood NO GROWTH AFTER 5 DAYS 05/22/19 20:10 Blood Culture - Preliminary Blood Micrococcus and related specie A&P Assessment and plan (1) Influenza A: Currently on Tamiflu. Improving although still coughing. Droplet isolation Status: Acute Code(s): J10.1 - Influenza due to other identified influenza virus with other respiratory manifestations (2) Fever: Secondary to influenza A. Improved Status: Acute Code(s): R50.9 - Fever, unspecified (3) Rash: Appears resolved Status: Acute Code(s): R21 - Rash and other nonspecific skin eruption (4) Anemia: Hemoglobin stable Status: Acute Qualifiers: Anemia type: other cause Other causes of anemia: chronic disease, other Qualified Code(s): D63.8 - Anemia in other chronic diseases classified elsewhere Code(s): D64.9 - Anemia, unspecified (5) Hypoxia: Resolved, likely secondary to fluid overload Status: Acute Code(s): R09.02 - Hypoxemia (6) Thrombocytopenia: Transient, resolved Status: Acute Code(s): D69.6 - Thrombocytopenia, unspecified (7) Diabetes: Lantus was added. Currently on sliding scale insulin. Sugars controlled Status: Acute Qualifiers: Diabetes mellitus complication status: with hyperglycemia Diabetes mellitus exterminator helper insulin use: without exterminator helper use Diabetes mellitus type: type 2 Qualified Code(s): E11.65 - Type 2 diabetes mellitus with hyperglycemia Code(s): E11.9 - Type 2 diabetes mellitus without complications (8) Left leg DVT: On Eliquis. DVT was 5 years ago. 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 Progressing well. Surgery following Status: Acute Code(s): C18.6 - Malignant neoplasm of descending colon (11) Generalized weakness: Continue physical therapy Status: Acute Code(s): R53.1 - Weakness (12) Hypokalemia: Repeat laboratory tomorrow Status: Acute Code(s): E87.6 - Hypokalemia (13) Hypomagnesemia: Supplementation started Status: Acute Code(s): E83.42 - Hypomagnesemia Additional A&P Information Chronic diarrhea, Lomotil resumed. This is helped substantially. Check C. difficile Attestations Medical Necessity Statement*: Needs continued hospitalization physical therapy, pending placement. Coding Level of Care Code Acute Pad Machine Offbearer for [facility] Fwd Diagnoses Influenza A J10.1 Fever R50.9 Rash R21 Anemia D63.8 Anemia type: other cause Other causes of anemia: chronic disease, other Hypoxia R09.02 Thrombocytopenia D69.6 Diabetes E11.65 Diabetes mellitus complication status: with hyperglycemia Diabetes mellitus exterminator helper insulin use: without intermediate use Diabetes mellitus type: type 2 Left leg DVT I82.502 Affected thrombotic vein of extremity: unspecified vein of extremity Chronicity: chronic HTN (hypertension) I10 Hypertension type: essential hypertension Cancer of descending colon C18.6 Generalized weakness R53.1 Hypokalemia E87.6 Hypomagnesemia E83.42
[2019-05-28 10:58] LABS: Glucose Point of Care 218 mg/dL (70-110)
--- NOTE | 2019-05-28 13:41 | PC.CHAP ---
Pastoral Care Encounter/Spiritual Assessment Type of Contact [] Declined coke crane operator visit [] Patient/Family/Request visit [] Outpatient visit [] Follow-up visit [] Physician referral [] Code/Alert [] Routine visit [] Staff referral [] Actively dying [] Patient sleeping [] Family support [] [] Out of room [] Palliative care [] [] Receiving care in room [] Pre-surgical visit [] Trauma [] Long length of stay [] ICU visit [x] Other: precautions Relational/Emotional Strength [] Patient feels connected with others/family/visitors/staff [] Distress [] Loneliness/isolation [] Abandonment Spirituality of Patient [] Person of Lyndsey [] Attends Restoration of their Lyndsey [] Believes in Prayer [] Reads Bible or Episcopalian materials [] There are Spiritual issues to be addressed Family Law Paralegal Interventions [] Prayer [] Active listening [] Non-anxious presence [] Spiritual/emotional support [] Crisis/trauma care [] Spiritual counseling [] Bereavement support [] Provided bereavement packet [] Provided Bible/devotional materials [] Provided toy/stuffed animal, coloring book to patient or family member [] Provided Communion [] Anointing/[place] [] Salvation [] Completed spiritual assessment [] Other: Impact on Illness or Injury [] Angry [] Fearful [] Anxious [] Often cries [] Exhaustion [] Unable to work [] Unable to attend oriental orthodox [] Unable to walk/stand [] Unable to read [] Unable to drive [] Unable to eat/drink [] Unable to sleep [] Unable to be with family [] Patient intubated [] Other: Summary could not visit due to precautions, try to revisit for follow up. Time spent with patient 5 min.
[2019-05-28 16:04] LABS: Glucose Point of Care 102 mg/dL (70-110)
[2019-05-28 21:04] LABS: Glucose Point of Care 165 mg/dL (70-110)
[2019-05-28] MEDS: insulin glargine 100 units/1 mL 10 UNIT SUBCUT (21:41)
[2019-05-28] MEDS: acetaminophen 325 mg Tablet PO (21:42)
[2019-05-29] VITALS: BP 113/71; PULSE 62; RESP 20; TEMP 36.7; O2SAT 99
[2019-05-29 01:05] LABS: Glucose Point of Care 123 mg/dL (70-110)
[2019-05-29 04:00] VITALS: BP 131/65; PULSE 70; RESP 18; TEMP 36.6; O2SAT 97
[2019-05-29 06:12] LABS: Basophils % 0.3 %; Eosinophils # 0.3 10^3/uL (0.0-0.8); Hematocrit 28.8 % (37.0-47.0); Hemoglobin 8.9 g/dL (11.5-15.3); Lymphocytes # 2.1 10^3/uL (0.8-4.8); Lymphocytes % 20.7 %; Mean Corpuscular HGB Conc 30.9 g/dL (30.0-36.0); Mean Corpuscular Hemoglobin 26.1 pg (28.0-34.0); Mean Corpuscular Volume 84.5 fL (81-99); Mean Platelet Volume 11.7 fL (7.4-10.4); Monocytes # 0.9 10^3/uL (0.2-0.9); Neutrophils # 6.6 10^3/uL (1.8-7.7); Neutrophils % 65.6 %; Nucleated Red Blood Cells % 0 %; Platelet Count 304 10^3/cmm (130-400); Positive C 1; Red Blood Count 3.41 10^6/uL (4.1-5.3); Red Cell Distribution Width 16.4 % (12.1-15.1)
[2019-05-29] MEDS: metoprolol tartrate 25 mg Tablet PO (06:12)
[2019-05-29 06:24] LABS: Slide Review Slide Review Perform
[2019-05-29 06:27] LABS: Anion Gap 14.6 (5-19); Blood Urea Nitrogen 9 mg/dL (8-23); Calcium 8.9 mg/dL (8.5-10.5); Carbon Dioxide 21 mmol/L (22-29); Chloride 104 mmol/L (98-107); Glomerular Filtration Rate 83.2 mL/min (90-130); Glucose 124 mg/dL (74-106); Osmolality Calculated 279 mOsm/kg (285-295); Potassium 3.6 mmol/L (3.5-5.1); Sodium 136 mmol/L (136-145)
[2019-05-29 06:40] LABS: Glucose Point of Care 120 mg/dL (70-110)
[2019-05-29 07:33] VITALS: BP 117/68; PULSE 62; RESP 16; TEMP 36.7; O2SAT 97
[2019-05-29] MEDS: apixaban 5 mg Tablet 2.5 MG PO (08:39)
[2019-05-29] MEDS: magnesium oxide 400 mg tablet PO (08:40)
[2019-05-29] MEDS: pantoprazole DR 40 mg Tablet PO (08:40)
[2019-05-29] MEDS: sulfamethoxazole-trimeth DS 160-800 mg Tablet 1 TAB PO (08:40)
[2019-05-29] MEDS: loratadine 10 mg Tablet PO (08:40)
[2019-05-29] MEDS: oseltamivir phosphate 75 mg Capsule PO (08:41)
[2019-05-29] MEDS: diphenoxylate/atropine Tablet 1 TAB PO (08:47)
[2019-05-29] MEDS: acetaminophen 325 mg Tablet PO (09:04)
--- NOTE | 2019-05-29 11:30 | P.DS_ITS ---
Discharge Providers Date of Admission: 05/13/19 01:20 Date of Discharge: Date of Discharge: May 29, 2019 Attending Provider at Admission: Lila Mccray MD Attending Provider at Discharge: Lázaro Castillo MD Diagnoses at Discharge Discharge Diagnosis (1) Influenza A: Status: Acute Problem details: She has completed treatment (2) Fever: Status: Acute Problem details: Resolved (3) Rash: Status: Acute Problem details: Resolved (4) Anemia: Status: Acute Problem details: Stable Qualifiers: Anemia type: other cause Other causes of anemia: chronic disease, other Qualified Code(s): D63.8 - Anemia in other chronic diseases classified elsewhere (5) Hypoxia: Status: Acute Problem details: Resolved (6) Thrombocytopenia: Status: Acute Problem details: Resolved (7) Diabetes: Status: Acute Problem details: Lantus, sliding scale insulin Qualifiers: Diabetes mellitus complication status: with hyperglycemia Diabetes mellitus termite exterminator insulin use: without long-term use Diabetes mellitus type: type 2 Qualified Code(s): E11.65 - Type 2 diabetes mellitus with hyperglycemia (8) Left leg DVT: Status: Acute Problem details: Continue chronic anticoagulation Qualifiers: Affected thrombotic vein of extremity: unspecified vein of extremity Chronicity: chronic Qualified Code(s): I82.502 - Chronic embolism and thrombosis of unspecified deep veins of left lower extremity (9) HTN (hypertension): Status: Acute Problem details: Stable Qualifiers: Hypertension type: essential hypertension Qualified Code(s): I10 - Essential (primary) hypertension (10) Cancer of descending colon: Status: Acute Problem details: Status post surgery. Follow-up with general surgery next week (11) Generalized weakness: Status: Acute Problem details: Discharge to physical therapy at [facility] facility (12) Hypokalemia: Status: Acute Problem details: Resolved (13) Hypomagnesemia: Status: Acute Problem details: Resolved Reason for Visit Reason for Visit: Reason For Visit: SIGNIFICANT HYPERGLYCEMIA, ACUTE ANEMIA Hospital Course Hospital Course: Rima presented to the hospital with general weakness and shortness of breath. She was found to be significantly anemic. She was transfused 2 units of packed red blood cells. Her chronic anticoagulation of Eliquis was held. Surgery was consulted. EGD and colonoscopy was performed while in the hospital on May 17. This demonstrated cancer of the descending colon. Exploratory laparotomy with partial colectomy occurred on May 18. She did require repeat transfusion following surgery. While in the hospital was found to be thrombocytopenic at 1 point. This gradually improved. Was also coughing, and found to have influenza. This was treated with over 5 days of Tamiflu. The rest of the course of hospital stay was spent supplementing potassium, getting her chronic diarrhea under control. By the end of the hospital stay she had had slight improvement of strength. Potassium level was stable. Diarrhea under much better control. She was ready to go to rehabilitation. She had weaned off oxygen that was needed and she was on room air. Her apixaban had also been restarted. Physical Exam Narrative: EXAM NARRATIVE: General exam no apparent distress Cardiovascular regular in rhythm Lungs clear but with diminished breath sounds at the bases Abdomen is soft positive bowel sounds Extremities no cyanosis or clubbing Urinary Catheter Management^: Lynch: Cath Placed During This Visit: no Discharge Data Data Completed and Pending: Completed Studies During Hospitalization Category Date Time Status XR chest 1V naeem ble [id number] Routine Exams 05/21/19 06:00 Completed XR chest 1V naeem ble [id number] Routine Exams 05/22/19 19:49 Completed XR chest 1V naeem ble [id number] Urgent Exams 05/12/19 18:12 Completed Pathology: Surgic al [PTH] Routine Pth 05/17/19 11:59 Completed Pathology: Surgic al [PTH] Routine Pth 05/18/19 16:47 [place] [id number] Urgent Ultrasound 05/15/19 15:43 Completed Pending at discharge Category Date Time Status Blood Culture Sta t Lab 05/22/19 20:31 Results Miscellaneous Jesi t Routine Lab 05/18/19 16:47 Received Labs from last 24 hours 05/29/19 05/29/19 05/29/19 06:32 05:50 05:50 WBC 10.0 RBC 3.41 L Hgb 8.9 L Hct 28.8 L MCV 84.5 MCH 26.1 L MCHC 30.9 RDW 16.4 H Plt Count 304 MPV 11.7 H Neut % (Auto) 65.6 Lymph % (Auto) 20.7 [place] % (Auto) 9.0 Eos % (Auto) 3.0 Baso % (Auto) 0.3 Neut # (Auto) 6.6 Lymph # (Auto) 2.1 [place] # (Auto) 0.9 Eos # (Auto) 0.3 Baso # (Auto) 0.0 Nucleated RBC % (a uto) 0 Nucleated RBCs # 0.0 Sodium 136 Potassium 3.6 Chloride 104 Carbon Dioxide 21 L Anion Gap 14.6 BUN 9 Creatinine 0.7 GFR Calculation 83.2 L Glucose 124 H POC Glucose 120 Calculated Osmolal ity 279 L Calcium 8.9 05/29/19 05/28/19 05/28/19 01:02 20:41 15:56 WBC RBC Hgb Hct MCV MCH MCHC RDW Plt Count MPV Neut % (Auto) Lymph % (Auto) [place] % (Auto) Eos % (Auto) Baso % (Auto) Neut # (Auto) Lymph # (Auto) [place] # (Auto) Eos # (Auto) Baso # (Auto) Nucleated RBC % (a uto) Nucleated RBCs # Sodium Potassium Chloride Carbon Dioxide Anion Gap BUN Creatinine GFR Calculation Glucose POC Glucose 123 165 102 Calculated Osmolal ity Calcium Vitals: Last Vital Signs Temp 98.0 F 05/29/19 07:33 Pulse 62 05/29/19 07:33 Resp 16 05/29/19 07:33 BP 117/68 05/29/19 07:33 Pulse Ox 97 05/29/19 07:33 Discharge Plan Discharge Patient Disposition: Xfer SNF Condition: Stable Prescriptions: New diphenoxylate-atropine 2.5-0.025 mg Tablet 1 tab PO Q4H PRN (Reason: Diarrhea) Qty: 30 RF: 0 ipratropium-albuterol 0.5 mg-3 mg(2.5 mg base)/3 mL Solution For Nebulization 3 ml inhalation Q6H.RESPIRATORY Qty: 180 RF: 0 magnesium oxide 400 mg (241.3 mg magnesium) Tablet 400 mg PO BID Qty: 60 RF: 0 potassium chloride 10 mEq Tablet Extended Release 40 meq PO DAILY Qty: 30 RF: 0 zinc oxide 20 % Ointment 1 applic topical PRN PRN (Reason: Skin Protectant) Qty: 60 RF: 0 insulin aspart U-100 [Novolog U-100 Insulin aspart] 100 unit/mL Solution 0 unit SUBCUT WM&BEDTIME Qty: 10 RF: 0 Lantus U-100 Insulin 100 unit/mL Solution 10 unit SUBCUT BEDTIME Qty: 10 RF: 0 metoprolol tartrate 25 mg Tablet 25 mg PO QAM&BEDTIME Qty: 60 RF: 0 sulfamethoxazole-trimethoprim 800-160 mg Tablet 1 tab PO BID Qty: 10 RF: 0 Continued omeprazole 20 mg Capsule,Delayed Release(Dr/Ec) 20 mg PO DAILY RF: 0 loratadine 10 mg Tablet 10 mg PO DAILY RF: 0 Eliquis 2.5 mg Tablet 2.5 mg PO BID RF: 0 Discontinued Zithromax Z-Pancho 250 mg Tablet 250 mg PO DAILY RF: 0 metoprolol tartrate 50 mg Tablet 50 mg PO DAILY RF: 0 hydrochlorothiazide 25 mg Tablet 25 mg PO DAILY RF: 0 Discharge Orders: Discharge Order (Routine); Ordered 05/29/19 Ordered By: Lázaro Castillo Referrals: [facility] [Outside] - 1-3 days (Follow-up with primary care provider at [facility] facility 3 days. BMP, magnesium 3 days) David Bergman MD [Physician] - 4-7 days Mili Crane MD [Hospitalist] - (You have a follow up scheduled with Dr. Crane on Wednesday, June 05. Your appointment is at 10:45, please arrive no later than 10:00 for new patient paperwork. You will need to apply for their sliding scale. To do this please bring your 2018 federal taxes and $30. Please call them with any questions you may have prior to your appointment. ) Discharge Diet: Cardiac and Diabetic Discharge Activity: Resume usual activity Activity Restrictions/Additional Instructions: Wound care instructions per surgery. Follow-up with surgery next week. Bactrim 1 twice a day for 5 days. BMP 3 days. CBC 3 days Discharge Attestations Time Spent in Discharge Care*: greater than 30 min Quality Metrics Clinical Quality Measures During this hospital stay, did patient experience: None Coding Level of Care Code Acute Binding Folder Machine for [facility] Fwd Diagnoses Influenza A J10.1 Fever R50.9 Rash R21 Anemia D63.8 Anemia type: other cause Other causes of anemia: chronic disease, other Hypoxia R09.02 Thrombocytopenia D69.6 Diabetes E11.65 Diabetes mellitus complication status: with hyperglycemia Diabetes mellitus long-term insulin use: without termite exterminator use Diabetes mellitus type: type 2 Left leg DVT I82.502 Affected thrombotic vein of extremity: unspecified vein of extremity Chronicity: chronic HTN (hypertension) I10 Hypertension type: essential hypertension Cancer of descending colon C18.6 Generalized weakness R53.1 Hypokalemia E87.6 Hypomagnesemia E83.42
[2019-05-29 11:36] VITALS: BP 121/69; PULSE 69; RESP 16; TEMP 37.2; O2SAT 96
[2019-05-29 12:09] LABS: Glucose Point of Care 184 mg/dL (70-110)
[2019-05-29 13:55] VITALS: BP 121/69; PULSE 69; RESP 16; TEMP 37.2; O2SAT 96
[2019-05-30 11:54] LABS: Miscellaneous Test See Scanned Lab Rpt
[2019-05-31 10:12] LABS: Glucose Point of Care 180 mg/dL (70-110)
== END 2019-05-29 13:30 | disposition skilled nursing facility (03) | DRG 330 ==
LOC: ER 05-13 01:50 → MEDSURG 05-13 01:52
PROVIDERS: Internal Medicine; Student in an Organized Health Care Education/Training Program; Surgery; Admitting Provider Family Medicine; Emergency Provider Emergency Medicine; Visit Provider Internal Medicine
PROC: 0DJ08ZZ Inspection of Upper Intestinal Tract, Via Natural or Artificial Opening Endoscopic (ICD-10-PCS; CPT 43235; principal; 2019-05-17 10:30)
PROC: 0DJD8ZZ Inspection of Lower Intestinal Tract, Via Natural or Artificial Opening Endoscopic (ICD-10-PCS; CPT 45378; 2019-05-17 10:30)
PROC: 0DTL0ZZ Resection of Transverse Colon, Open Approach (ICD-10-PCS; CPT 49000; principal; 2019-05-18 13:00)
PROC: 0DTL0ZZ Resection of Transverse Colon, Open Approach (ICD-10-PCS; CPT 44140; 2019-05-18 13:00)
DX: C18.6 Malignant neoplasm of descending colon (principal); C18.0 Malignant neoplasm of cecum; I82.402 Acute embolism and thrombosis of unspecified deep veins of left lower extremity; K92.2 Gastrointestinal hemorrhage, unspecified; I82.502 Chronic embolism and thrombosis of unspecified deep veins of left lower extremity; E11.65 Type 2 diabetes mellitus with hyperglycemia; D63.8 Anemia in other chronic diseases classified elsewhere; I10 Essential (primary) hypertension; Z87.19 Personal history of other diseases of the digestive system; Z85.038 Personal history of other malignant neoplasm of large intestine; Z79.01 Long term (current) use of anticoagulants; D69.6 Thrombocytopenia, unspecified; J10.1 Influenza due to other identified influenza virus with other respiratory manifestations; R19.5 Other fecal abnormalities; R21 Rash and other nonspecific skin eruption; E87.6 Hypokalemia; E83.42 Hypomagnesemia; Z95.828 Presence of other vascular implants and grafts; Z79.4 Long term (current) use of insulin
CPT/HCPCS: 12345; 36415; 36416; 36430; 43235; 45381; 71045; 80048; 80053; 80500; 81001; 81003; 81210; 82009; 82274; 82378; 82962; 83036; 83735; 83880; 84484; 85014; 85018; 85025; 86850; 86900; 87040; 87077; 87205; 87493; 87804; 88305; 88309; 88341; 88342; 93970; 94640; 94664; 96365; 96372; 96374; 96375; 97161; 97165; 97530; 99283; C9113; C9290; J0690; J1170; J1644; J1815; J1885; J1940; J2001; J2270; J2405; J2704; J3010; J3475; J3480; J3490; J7030; J7614; P9016; Q0162; S0030

== ENCOUNTER 2019-06-16 13:34 | Outpatient (RCR) | payer MEDICARE, SELFPAY | END 2019-06-24 23:59 | disposition home or self-care (01) | LOC: WOUND 13:34 | PROVIDERS: Visit Provider Surgery | DX: Z01.89 Encounter for other specified special examinations (principal) ==

== ENCOUNTER → 2019-07-18 11:39 | Outpatient (BNVA) | payer SELFPAY | PROVIDERS: Visit Provider Family Medicine | DX: E87.6 Hypokalemia (principal); E83.42 Hypomagnesemia; I10 Essential (primary) hypertension; C18.6 Malignant neoplasm of descending colon; I82.502 Chronic embolism and thrombosis of unspecified deep veins of left lower extremity; E11.65 Type 2 diabetes mellitus with hyperglycemia; R19.7 Diarrhea, unspecified; Z98.890 Other specified postprocedural states | CPT/HCPCS: 80053; 83036; 83735; 84100; 85025 ==

== ENCOUNTER → 2020-03-22 12:20 | Outpatient (BNVA) | payer SELFPAY | PROVIDERS: Visit Provider Family Medicine Adult Medicine | DX: E83.42 Hypomagnesemia (principal); E11.65 Type 2 diabetes mellitus with hyperglycemia; C18.6 Malignant neoplasm of descending colon; E87.6 Hypokalemia; R19.7 Diarrhea, unspecified; R53.1 Weakness; Z98.890 Other specified postprocedural states; Z85.038 Personal history of other malignant neoplasm of large intestine; N18.30 Chronic kidney disease, stage 3 unspecified; Z79.01 Long term (current) use of anticoagulants; Z87.19 Personal history of other diseases of the digestive system; I82.502 Chronic embolism and thrombosis of unspecified deep veins of left lower extremity; I12.9 Hypertensive chronic kidney disease with stage 1 through stage 4 chronic kidney disease, or unspecified chronic kidney disease; E11.22 Type 2 diabetes mellitus with diabetic chronic kidney disease | CPT/HCPCS: 80053; 80061; 83036; 83735; 84443; 85025 ==

== ENCOUNTER → 2020-10-25 11:48 | Outpatient (BNVA) | payer MEDICARE, SELFPAY | PROVIDERS: PCP Family Medicine Adult Medicine; Visit Provider Family Medicine Adult Medicine | DX: E11.65 Type 2 diabetes mellitus with hyperglycemia (principal); E87.6 Hypokalemia; I10 Essential (primary) hypertension; R19.7 Diarrhea, unspecified; R68.89 Other general symptoms and signs; N18.30 Chronic kidney disease, stage 3 unspecified; Z98.890 Other specified postprocedural states; E83.42 Hypomagnesemia; Z79.01 Long term (current) use of anticoagulants; K21.9 Gastro-esophageal reflux disease without esophagitis | CPT/HCPCS: 80053; 83036; 83735; 84443; 85025 ==

== ENCOUNTER → 2021-01-24 11:32 | Outpatient (BNVA) | payer MEDICARE, SELFPAY | PROVIDERS: PCP Family Medicine Adult Medicine; Visit Provider Family Medicine Adult Medicine | DX: E83.42 Hypomagnesemia (principal); E11.65 Type 2 diabetes mellitus with hyperglycemia; Z79.01 Long term (current) use of anticoagulants; D63.8 Anemia in other chronic diseases classified elsewhere; N18.2 Chronic kidney disease, stage 2 (mild); I12.9 Hypertensive chronic kidney disease with stage 1 through stage 4 chronic kidney disease, or unspecified chronic kidney disease | CPT/HCPCS: 80053; 83735; 85025 ==

== ENCOUNTER → 2021-04-11 08:25 | Outpatient (BNVA) | payer MEDICARE, SELFPAY | PROVIDERS: PCP Family Medicine Adult Medicine; Visit Provider Family Medicine Adult Medicine | DX: E83.42 Hypomagnesemia (principal); E11.65 Type 2 diabetes mellitus with hyperglycemia; E87.6 Hypokalemia; E78.5 Hyperlipidemia, unspecified; I10 Essential (primary) hypertension | CPT/HCPCS: 80053; 80061; 83036; 83735; 85025 ==

== ENCOUNTER → 2021-05-06 09:54 | Outpatient (BNVA) | payer MEDICARE, SELFPAY | PROVIDERS: PCP Family Medicine Adult Medicine; Visit Provider Family Medicine Adult Medicine | DX: E83.42 Hypomagnesemia (principal); E11.65 Type 2 diabetes mellitus with hyperglycemia; D63.8 Anemia in other chronic diseases classified elsewhere; E87.6 Hypokalemia; I10 Essential (primary) hypertension | CPT/HCPCS: 80053; 83036; 83735; 85025 ==

== ENCOUNTER → 2021-08-07 08:51 | Outpatient (BNVA) | payer MEDICARE, SELFPAY | PROVIDERS: PCP Family Medicine Adult Medicine; Visit Provider Family Medicine Adult Medicine | DX: E87.6 Hypokalemia (principal); E11.65 Type 2 diabetes mellitus with hyperglycemia; N18.2 Chronic kidney disease, stage 2 (mild); I10 Essential (primary) hypertension; E83.42 Hypomagnesemia; Z68.34 Body mass index [BMI] 34.0-34.9, adult | CPT/HCPCS: 80048; 83036; 83735 ==

== ENCOUNTER → 2021-11-06 10:19 | Outpatient (BNVA) | payer OTHER, MEDICARE, SELFPAY | PROVIDERS: PCP Family Medicine Adult Medicine; Visit Provider Family Medicine Adult Medicine | DX: E87.6 Hypokalemia (principal); R19.7 Diarrhea, unspecified; E11.65 Type 2 diabetes mellitus with hyperglycemia; E11.22 Type 2 diabetes mellitus with diabetic chronic kidney disease; I12.9 Hypertensive chronic kidney disease with stage 1 through stage 4 chronic kidney disease, or unspecified chronic kidney disease; N18.2 Chronic kidney disease, stage 2 (mild) | CPT/HCPCS: 80053; 83036; 83735; 85025 ==

== ENCOUNTER → 2022-02-05 09:15 | Outpatient (BNVA) | payer OTHER, MEDICARE, SELFPAY | PROVIDERS: PCP Family Medicine Adult Medicine; Visit Provider Family Medicine Adult Medicine | DX: E11.65 Type 2 diabetes mellitus with hyperglycemia (principal); E11.22 Type 2 diabetes mellitus with diabetic chronic kidney disease; I12.9 Hypertensive chronic kidney disease with stage 1 through stage 4 chronic kidney disease, or unspecified chronic kidney disease; N18.2 Chronic kidney disease, stage 2 (mild); R82.90 Unspecified abnormal findings in urine | CPT/HCPCS: 80053; 81000; 83036 ==

== ENCOUNTER → 2022-04-01 08:21 | Outpatient (BNVA) | payer OTHER, SELFPAY | PROVIDERS: PCP Family Medicine Adult Medicine; Visit Provider Family Medicine Adult Medicine | DX: B34.9 Viral infection, unspecified (principal); E83.42 Hypomagnesemia; E11.9 Type 2 diabetes mellitus without complications; I10 Essential (primary) hypertension; K52.9 Noninfective gastroenteritis and colitis, unspecified | CPT/HCPCS: 80053; 83036; 83735; 87071; 87400; 87880 ==

== ENCOUNTER → 2022-08-18 08:41 | Outpatient (BNVA) | payer OTHER, SELFPAY | PROVIDERS: PCP Family Medicine Adult Medicine; Visit Provider Family Medicine Adult Medicine | DX: E83.42 Hypomagnesemia (principal); E11.69 Type 2 diabetes mellitus with other specified complication; E78.5 Hyperlipidemia, unspecified | CPT/HCPCS: 80053; 80061; 83036; 83735 ==

== ENCOUNTER → 2022-11-17 09:02 | Outpatient (BNVA) | payer OTHER, SELFPAY | PROVIDERS: PCP Family Medicine Adult Medicine; Visit Provider Family Medicine Adult Medicine | DX: E11.65 Type 2 diabetes mellitus with hyperglycemia (principal); I10 Essential (primary) hypertension; E11.9 Type 2 diabetes mellitus without complications | CPT/HCPCS: 80053; 83036; 84443; 85025 ==

== ENCOUNTER → 2023-02-17 08:34 | Outpatient (BNVA) | payer OTHER, SELFPAY | PROVIDERS: PCP Family Medicine Adult Medicine; Visit Provider Family Medicine Adult Medicine | DX: R68.89 Other general symptoms and signs (principal); D64.9 Anemia, unspecified; I10 Essential (primary) hypertension; E11.9 Type 2 diabetes mellitus without complications; G47.00 Insomnia, unspecified | CPT/HCPCS: 80053; 83036; 84443; 85025 ==

== ENCOUNTER → 2023-05-25 08:54 | Outpatient (BNVA) | payer BC, SELFPAY | PROVIDERS: PCP Family Medicine Adult Medicine; Visit Provider Family Medicine Adult Medicine | DX: R60.0 Localized edema (principal); I10 Essential (primary) hypertension; E11.65 Type 2 diabetes mellitus with hyperglycemia; E78.5 Hyperlipidemia, unspecified | CPT/HCPCS: 80053; 80061; 83036 ==

== ENCOUNTER → 2023-08-25 09:29 | Outpatient (BNVA) | payer BC, SELFPAY | PROVIDERS: PCP Family Medicine Adult Medicine; Visit Provider Family Medicine Adult Medicine | DX: E11.65 Type 2 diabetes mellitus with hyperglycemia (principal); E11.22 Type 2 diabetes mellitus with diabetic chronic kidney disease; I12.9 Hypertensive chronic kidney disease with stage 1 through stage 4 chronic kidney disease, or unspecified chronic kidney disease | CPT/HCPCS: 80053; 83036; 85025 ==

== ENCOUNTER → 2023-11-24 08:33 | Outpatient (BNVA) | payer BC, SELFPAY | PROVIDERS: PCP Family Medicine Adult Medicine; Visit Provider Family Medicine Adult Medicine | DX: I10 Essential (primary) hypertension (principal); E11.65 Type 2 diabetes mellitus with hyperglycemia; N18.2 Chronic kidney disease, stage 2 (mild) | CPT/HCPCS: 80053; 83036; 85025 ==

== ENCOUNTER → 2024-04-06 11:03 | Outpatient (BNVA) | payer BC, SELFPAY | PROVIDERS: PCP Family Medicine Adult Medicine; Visit Provider Nurse Practitioner Family | DX: M54.9 Dorsalgia, unspecified (principal) | CPT/HCPCS: 81000 ==

== ENCOUNTER 2024-04-10 09:54 | Outpatient (CLI) | payer MEDICARE, SELFPAY ==
--- NOTE | 2024-04-10 10:00 | XRR_ITS ---
PROCEDURE INFORMATION: Exam: XR Chest Exam date and time: 04/10/2024 10:16 AM Age: 73 years old Clinical indication: Patient HX: Chronic intermittent cough and phlegm in throat, HX of colon cancer; Additional info: Cough x 1 wk; Malaise TECHNIQUE: Imaging protocol: Radiologic exam of the chest. Views: 2 views. COMPARISON: CR XR chest 1V portable [id number] 05/22/2019 8:13 PM FINDINGS: Lungs: No focal consolidation. Pleural spaces: No significant pleural effusion. No pneumothorax. Heart/Mediastinum: Cardiomediastinal silhouette is within normal limits. Vasculature: Atherosclerosis of the aortic arch and tortuosity of the descending thoracic aorta. Partially visualized IVC filter. Clips in the right upper quadrant. Bones/joints: Unremarkable. XR/XR chest 2V* [id number] IMPRESSION: No acute cardiopulmonary disease.
[2024-04-10 10:55] LABS: Basophils # 0.1 10^3/uL (0.0-0.1); Basophils % 0.5 %; Eosinophils # 0.3 10^3/uL (0.0-0.8); Eosinophils % 2.7 %; Hematocrit 33.4 % (36-47); Lymphocytes # 3.2 10^3/uL (0.8-4.8); Lymphocytes % 34.9 %; Mean Corpuscular Hemoglobin 30.7 pg (27-33); Mean Corpuscular Volume 95.7 fl (85-98); Mean Platelet Volume 11.1 fL (7.4-10.4); Monocytes # 0.8 10^3/uL (0.2-0.9); Monocytes % 8.6 %; Neutrophils # 4.72 10^3/uL (1.8-7.7); Neutrophils % 51.4 %; Nucleated Red Blood Cells % 0 %; Platelet Count 204 10^3/cmm (157-399); Red Blood Count 3.49 10^6/uL (3.85-5.65); Red Cell Distribution Width 13.1 % (12.1-15.1); White Blood Count 9.18 10^3/uL (3.29-11.43)
[2024-04-10 11:17] LABS: Estmated Average Glucose 151; Hemoglobin A1C 6.9 % (4.0-6.0)
[2024-04-10 11:37] LABS: Alanine Aminotransferase 20 U/L (0-33); Albumin Level 3.7 g/dL (3.5-5.2); Alkaline Phosphatase 54 U/L (35-105); Aspartate Amino Transferase 18 U/L (0-32); Blood Urea Nitrogen 24 mg/dL (8-23); Calcium 9.5 mg/dL (8.5-10.5); Carbon Dioxide 20 mmol/L (22-29); Chloride 100 mmol/L (98-107); Globulin 3.2 g/dL (1.3-4.6); Glucose 234 mg/dL (65-115); Iron 69 ug/dL (37-145); Magnesium 1.3 mg/dL (1.7-2.3); Osmolality Calculated 302 mOsm/kg (285-295); Percent Saturation 19.9 % (20-50); Sodium 140 mmol/L (136-145); Thyroid Stimulating Hormone 1.57 uIU/mL (0.27-4.20); Total Bilirubin 0.3 mg/dL (0.15-1.2); Total Iron Binding Capacity 346 mcg/dl; Total Protein 6.9 g/dL (6.6-8.7); Unsaturated Iron Binding 277 ug/dL (112-347); Vitamin B12 150 pg/mL (232-1245)
[2024-04-10 12:02] LABS: Free T4 Free Thyroxine 1.44 ng/dL (0.82-1.77)
== END 2024-04-10 09:55 | disposition home or self-care (01) ==
LOC: LAB 09:58
PROVIDERS: PCP Family Medicine; Visit Provider Family Medicine
DX: R05.9 Cough, unspecified (principal); I10 Essential (primary) hypertension; E11.65 Type 2 diabetes mellitus with hyperglycemia; K21.9 Gastro-esophageal reflux disease without esophagitis; K52.9 Noninfective gastroenteritis and colitis, unspecified; N18.31 Chronic kidney disease, stage 3a; E83.42 Hypomagnesemia; D63.8 Anemia in other chronic diseases classified elsewhere; R68.89 Other general symptoms and signs; I70.0 Atherosclerosis of aorta; Q25.46 Tortuous aortic arch
CPT/HCPCS: 36415; 71046; 80053; 82607; 83036; 83540; 83550; 83735; 84439; 84443; 85025

== ENCOUNTER → 2024-05-04 12:40 | Outpatient (BNVA) | payer MEDICARE, SELFPAY | PROVIDERS: PCP Family Medicine; Visit Provider Family Medicine | DX: D51.0 Vitamin B12 deficiency anemia due to intrinsic factor deficiency (principal); D63.8 Anemia in other chronic diseases classified elsewhere | CPT/HCPCS: 83540 ==

== ENCOUNTER → 2024-05-12 09:58 | Outpatient (BNVA) | payer MEDICARE, SELFPAY | PROVIDERS: PCP Family Medicine; Visit Provider Family Medicine | DX: I10 Essential (primary) hypertension (principal); E11.69 Type 2 diabetes mellitus with other specified complication; E78.5 Hyperlipidemia, unspecified; N18.31 Chronic kidney disease, stage 3a; E83.42 Hypomagnesemia; E87.6 Hypokalemia; D51.0 Vitamin B12 deficiency anemia due to intrinsic factor deficiency; Z85.038 Personal history of other malignant neoplasm of large intestine | CPT/HCPCS: 80048; 80061; 82378; 82607; 83735; 85025 ==

== ENCOUNTER → 2024-08-08 09:55 | Outpatient (BNVA) | payer MEDICARE, SELFPAY | PROVIDERS: PCP Family Medicine; Visit Provider Family Medicine | DX: I10 Essential (primary) hypertension (principal); E11.65 Type 2 diabetes mellitus with hyperglycemia; K52.9 Noninfective gastroenteritis and colitis, unspecified; E83.42 Hypomagnesemia; E87.6 Hypokalemia; D51.0 Vitamin B12 deficiency anemia due to intrinsic factor deficiency; D63.8 Anemia in other chronic diseases classified elsewhere; N18.31 Chronic kidney disease, stage 3a | CPT/HCPCS: 80048; 82043; 82607; 83036; 83540; 83735; 85025 ==

== ENCOUNTER → 2024-10-17 13:21 | Outpatient (BNVA) | payer MEDICARE, SELFPAY | PROVIDERS: PCP Family Medicine; Visit Provider Family Medicine | DX: I10 Essential (primary) hypertension (principal); N18.31 Chronic kidney disease, stage 3a; E83.42 Hypomagnesemia; E87.6 Hypokalemia | CPT/HCPCS: 80048; 83735 ==

== ENCOUNTER 2024-11-13 13:29 | Outpatient (CLI) | payer MEDICARE, SELFPAY | END 2024-11-13 13:30 | disposition home or self-care (01) | LOC: LAB 13:33 | PROVIDERS: PCP Family Medicine; Visit Provider Family Medicine | DX: E11.65 Type 2 diabetes mellitus with hyperglycemia (principal); I10 Essential (primary) hypertension; K52.9 Noninfective gastroenteritis and colitis, unspecified; N18.31 Chronic kidney disease, stage 3a; E87.6 Hypokalemia; D51.0 Vitamin B12 deficiency anemia due to intrinsic factor deficiency; D63.8 Anemia in other chronic diseases classified elsewhere | CPT/HCPCS: 80053; 82607; 83036; 83540; 85025; 86803 ==

== ENCOUNTER 2024-11-20 15:05 | Outpatient (CLI) | payer MEDICARE, SELFPAY ==
--- NOTE | 2024-11-20 15:00 | MM_ITS ---
WS: [id number] BILATERAL 3D TOMOSYNTHESIS DIGITAL SCREENING MAMMOGRAPHY WITH CAD CLINICAL INFORMATION: screening HISTORY: Screening mammogram. No current complaints. 6-month follow-up is recommended in 2018 COMPARISON: 2018 TECHNIQUE: Bilateral CC and MLO views. FINDINGS: Scattered fibroglandular densities bilaterally. No suspicious focal mass, asymmetry, calcifications, or architectural distortion. No evidence of malignancy. Asymmetries in the upper outer breast bilaterally are stable in appearance. MM/MM [facility] tomosynthesis [id number] IMPRESSION: DENSITY: There are scattered areas of fibroglandular density. BI-RADS: 2 - Benign. FOLLOW UP: 1 Year Follow-up Recommend return to annual screening mammography.
--- NOTE | 2024-11-20 15:30 | XR_ITS ---
WS: [id number] DEXA (DUAL ENERGY X-RAY ABSORPTIOMETRY) Bone mineral density was performed using a [employer] machine. HISTORY: postmenopausal COMPARISON: None available. Lumbar spine BMD (L1-L4): 1.200 g/cm2 T score: 0.2 Z score: 0.9 Total hip BMD: Left: 0.893 g/cm2. T score: -0.9 Z score: 0.0 Right: 0.892 g/cm2. T score: -0.9 Z score: 0.0 10 year probability of a major osteoporotic fracture is 13.3%. XR/XR DEXA axial skeleton* [id number] IMPRESSION: NORMAL BONE MINERAL DENSITY based upon the WHO classification for females.
== END 2024-11-20 15:06 | disposition home or self-care (01) ==
LOC: RAD 15:07
PROVIDERS: PCP Family Medicine; Visit Provider Family Medicine
DX: Z12.31 Encounter for screening mammogram for malignant neoplasm of breast (principal); Z13.820 Encounter for screening for osteoporosis; Z78.0 Asymptomatic menopausal state
CPT/HCPCS: 77063; 77067; 77080

== ENCOUNTER → 2024-11-23 16:23 | Outpatient (BNVA) | payer MEDICARE, SELFPAY | PROVIDERS: PCP Family Medicine; Visit Provider Family Medicine | DX: M25.561 Pain in right knee (principal) | CPT/HCPCS: 84550 ==

== ENCOUNTER → 2025-02-23 16:01 | Outpatient (BNVA) | payer MEDICARE, SELFPAY | PROVIDERS: PCP Family Medicine; Visit Provider Family Medicine | DX: I10 Essential (primary) hypertension (principal); N18.31 Chronic kidney disease, stage 3a; M10.30 Gout due to renal impairment, unspecified site | CPT/HCPCS: 80048; 84550 ==

== ENCOUNTER 2025-03-12 12:06 | Outpatient (CLI) | payer MEDICARE, SELFPAY ==
--- NOTE | 2025-03-12 12:15 | USCV_ITS ---
Rima Jacobs Age: 74 Gender: F : 1950 Exam Date: 03/12/2025 12:34 Ordering Phys: Cesia Melendez MD Technologist: Exam Location: [facility] [place] Indication: swelling, hx of dvt HISTORY: Lower extremity swelling. History of deep venous thrombosis. PROCEDURES: Venous duplex imaging was performed in bilateral lower extremities. Serial compression, augmentation maneuvers, and spectral Doppler flow evaluation were performed. FINDINGS: No evidence of DVT seen in any vessel visualized at this time. pt has venous insufficiency as well CONCLUSIONS No evidence of right lower extremity DVT. No evidence of left lower extremity DVT. Evidence of bilateral venous insufficiency Km Christensen MD (Electronically Signed) Final Date: 12 March 2025 12:56 S
== END 2025-03-12 12:07 | disposition home or self-care (01) ==
LOC: RAD 12:08
PROVIDERS: PCP Family Medicine; Visit Provider Family Medicine
DX: R60.0 Localized edema (principal); I83.819 Varicose veins of unspecified lower extremity with pain; I87.2 Venous insufficiency (chronic) (peripheral); Z86.718 Personal history of other venous thrombosis and embolism
CPT/HCPCS: 93970

== ENCOUNTER 2025-03-14 09:59 | Outpatient (CLI) | payer MEDICARE, SELFPAY ==
--- NOTE | 2025-03-14 10:06 | XR_ITS ---
WS: [id number] XR hip BI m 5V wo/w pel* [id number] REASON FOR EXAM: bilateral hip pain FINDINGS: RIGHT HIP: No fracture or focal bone lesion. Mild narrowing of the posterior inferior joint space with intact and well preserved superior anterior joint space. Mild subchondral sclerosis of the acetabulum. Minimal osteophytosis of the femoral head. XR/XR hip BI m 5V wo/w pel* [id number] IMPRESSION: Minimal to mild osteoarthritis in the right hip. LEFT HIP: No fracture or focal bone lesion. Mild narrowing of the posterior inferior join t space and intact and well preserved anterior superior joint space. Mild subch ondral sclerosis of the acetabulum. Mild osteophytosis of the femoral head. IMPRESSION: Minimal to mild osteoarthritis of the left hip.
--- NOTE | 2025-03-14 10:06 | XR_ITS ---
WS: [email or web address] XR lumbar spine 2-3V* [id number] REASON FOR EXAM: bilateral hip and leg pain FINDINGS: Mild rotatory levoscoliosis. No compression deformity or focal lesion of the lumbar vertebrae. Significant narrowing of the disc spaces at L1-L2, L2-L3, and L5-S1. At these disc spaces there is moderate endplate sclerosis and osteophytosis. No spondylolysis. No significant spondylolisthesis. Mild degenerative arthropathy in the facet joints L3-S1. Incidental: IVC filter which appears in proper orientation. XR/XR lumbar spine 2-3V* [id number] IMPRESSION: Multilevel degenerative spondylosis.
--- NOTE | 2025-03-14 10:06 | XR_ITS ---
WS: [email or web address] XR knee RT 3V* [id number] REASON FOR EXAM: R knee pain FINDINGS: AP views are not well positioned and patellofemoral and medial and lateral joint spaces are not well demonstrated. Possibly the patient could not straighten her knee. No fracture or focal bone lesion. Based on the lateral, there is mild narrowing of the medial and lateral knee joint spaces with moderate subchondral sclerosis. Patellofemoral joint space is not well demonstrated but appears to be intact. Minimal subchondral sclerosis and osteophytosis of the patella. XR/XR knee RT 3V* [id number] IMPRESSION: Minimal osteoarthritis for age.
== END 2025-03-14 10:00 | disposition home or self-care (01) ==
LOC: RAD 09:59
PROVIDERS: PCP Family Medicine; Visit Provider Family Medicine
DX: M47.896 Other spondylosis, lumbar region (principal); M25.852 Other specified joint disorders, left hip; M25.851 Other specified joint disorders, right hip; M41.86 Other forms of scoliosis, lumbar region; M89.8X8 Other specified disorders of bone, other site; M25.861 Other specified joint disorders, right knee; M51.369 Other intervertebral disc degeneration, lumbar region without mention of lumbar back pain or lower extremity pain; M51.379 Other intervertebral disc degeneration, lumbosacral region without mention of lumbar back pain or lower extremity pain; M25.78 Osteophyte, vertebrae; R93.7 Abnormal findings on diagnostic imaging of other parts of musculoskeletal system; M47.897 Other spondylosis, lumbosacral region; Z96.89 Presence of other specified functional implants
CPT/HCPCS: 72100; 73523; 73562

== ENCOUNTER → 2025-03-20 08:55 | Outpatient (BNVA) | payer MEDICARE, SELFPAY | PROVIDERS: PCP Family Medicine; Visit Provider Family Medicine | DX: E11.65 Type 2 diabetes mellitus with hyperglycemia (principal); I87.2 Venous insufficiency (chronic) (peripheral); I10 Essential (primary) hypertension; K52.9 Noninfective gastroenteritis and colitis, unspecified; N18.31 Chronic kidney disease, stage 3a; E87.6 Hypokalemia; D51.0 Vitamin B12 deficiency anemia due to intrinsic factor deficiency; M54.9 Dorsalgia, unspecified; G89.29 Other chronic pain; D63.8 Anemia in other chronic diseases classified elsewhere | CPT/HCPCS: 80048; 82607; 83036; 83540; 83921; 84439; 84443; 85025 ==

== ENCOUNTER 2025-03-23 15:14 | Outpatient (CLI) | payer MEDICARE, SELFPAY ==
--- NOTE | 2025-03-23 15:15 | MRR_ITS ---
PROCEDURE INFORMATION: Exam: MR Lumbar Spine Without Contrast Exam date and time: 03/23/2025 3:30 PM Age: 74 years old Clinical indication: Low back pain; Lbp that radiates down the right lower extremity/right hip/no injury. HX of colon cancer; Additional info: Back pain with R leg pain TECHNIQUE: Imaging protocol: Magnetic resonance imaging of the lumbar spine without contrast. COMPARISON: CR XR lumbar spine 2-3V* [id number] 03/14/2025 10:18 AM FINDINGS: Bones/joints: Vertebral bodies demonstrate a normal height. There is anterior marginal osteophytosis at L1-L3. There is T1 and T2 hyperintensity at the L1-L2 and L2-L3 endplates compatible with Modic type 2 endplate changes. There are Schmorl's nodes at L1-L2 and L2-L3. Spinal cord: Visualized cord, conus medullaris and cauda equina are unremarkable without compression. Conus medullaris is located at the T12-L1 level and is normal in signal intensity. Disc spaces: There is disc desiccation at L4-L5 and L5-S1. Disc space heights: There is disc space narrowing at L5-S1. L1-L2: No significant disc bulge or herniation. No severe spinal canal stenosis. No significant neural foraminal narrowing. L2-L3: There is a right foraminal disc bulge causing mild right neural foraminal stenosis without spinal canal stenosis. L3-L4: No significant disc bulge or herniation. No severe spinal canal stenosis. No significant neural foraminal narrowing. L4-L5: There is a disc bulge with moderate bilateral facet arthrosis causing mild bilateral neural foraminal stenosis without spinal canal stenosis. L5-S1: No significant disc bulge or herniation. No severe spinal canal stenosis. No significant neural foraminal narrowing. There is moderate bilateral facet arthrosis. Soft tissues: Unremarkable. Retroperitoneum:The retroperitoneum is unremarkable. There are no renal masses. MR/MR lumbar spine wo con* [id number] IMPRESSION: 1. Multilevel degenerative spondylosis as above. 2. Modic type 2 endplate changes at L1-L2 and L2-L3. 3. Schmorl's nodes at L1-L2 and L2-L3. 4. Disc desiccation at L4-L5 and L5-S1 with disc space narrowing at L5-S1. 4. Disc bulge at L4-L5 causing mild bilateral neural foraminal stenosis without spinal canal stenosis.
== END 2025-03-23 15:15 | disposition home or self-care (01) ==
LOC: RAD 15:15
PROVIDERS: PCP Family Medicine; Visit Provider Family Medicine
DX: M54.41 Lumbago with sciatica, right side (principal); M54.42 Lumbago with sciatica, left side; M48.061 Spinal stenosis, lumbar region without neurogenic claudication; M47.26 Other spondylosis with radiculopathy, lumbar region; M51.46 Schmorl's nodes, lumbar region; M25.78 Osteophyte, vertebrae; Z85.038 Personal history of other malignant neoplasm of large intestine; R93.7 Abnormal findings on diagnostic imaging of other parts of musculoskeletal system; M51.369 Other intervertebral disc degeneration, lumbar region without mention of lumbar back pain or lower extremity pain; M51.379 Other intervertebral disc degeneration, lumbosacral region without mention of lumbar back pain or lower extremity pain; M47.897 Other spondylosis, lumbosacral region
CPT/HCPCS: 72148